=== PATIENT | female | born 2005 | race Caucasian/White ===

== ENCOUNTER 2023-12-11 16:26 | Inpatient (IN) ==
[2023-12-11] MEDS ORDERED: diphenhydrAMINE 50 MG/ML VIAL IV STA ×4 (16:31→20:22)
[2023-12-11] MEDS ORDERED: FAMOTIDINE 20MG IV PUSH 20 MG/5 ML SYR IV STA (16:31)
[2023-12-11] MEDS ORDERED: methylPREDNISolone 125 MG/2 ML VIAL IV STA (16:31)
[2023-12-11] MEDS ORDERED: diphenhydrAMINE 50 MG/ML VIAL ONE (16:32)
[2023-12-11] MEDS ORDERED: methylPREDNISolone 125 MG/2 ML VIAL ONE (16:32)
[2023-12-11] MEDS ORDERED: FAMOTIDINE 20MG/5ML IV PUSH IV ONE (16:32)
[2023-12-11] MEDS ORDERED: EPINEPHrine ADULT AUTO-INJECT 0.3 MG SYR IM ONE (16:43)
[2023-12-11 17:02] LABS: Basophils # (auto) 0.03 K/uL (0.00-0.20); Basophils % (auto) 0.4 %; Eosinophils # (auto) 0.12 K/uL (0.00-0.50); Eosinophils % (auto) 1.6 %; Hematocrit (blood only) 43.3 % (37.0-47.0); Hemoglobin 14.2 g/dl (12.0-16.0); Immature Granulocytes # (auto) 0.02 K/uL (0.01-0.20); Immature Granulocytes % (auto) 0.3 %; Lymphocytes # (auto) 2.22 K/uL (1.20-3.40); Lymphocytes % (auto) 29.9 %; Mean Corpuscular Hemoglobin 27.5 pg (25.0-34.0); Mean Corpuscular Hgb Conc 32.8 g/dL (32.0-36.0); Mean Corpuscular Volume 83.9 fL (80.0-100.0); Mean Platelet Volume 9.8 fL (9.4-12.4); Monocytes # (auto) 1.08 K/uL (0.11-0.59); Monocytes % (auto) 14.6 %; Neutrophils # (auto) 3.95 K/uL (1.40-6.50); Neutrophils % (auto) 53.2 %; Platelet Count 316 K/uL (130-400); RDW Coefficient of Variation 12.8 % (11.5-14.5); RDW Standard Deviation 39.5 fL (36.4-46.3); Red Blood Count 5.16 M/uL (4.20-5.40); White Blood Count 7.42 K/ul (4.8-10.8)
[2023-12-11] MEDS: SODIUM CHLORIDE 0.9% 1,000 ML IV SCH ×3 (17:03→17:45)
[2023-12-11 17:13] LABS: Pregnancy Test, Serum Negative (Negative)
--- NOTE | 2023-12-11 17:16 | Emergency Department Note ---
Impression & Plan Mast cell activation syndrome, Anxiety, COVID-19 ED Provider Note NAME: LEANDER DORANTES AGE: 18 SEX: F ARRIVES VIA: Walk-In INFORMANT: Patient ED PROVIDER(S): Win Barr MD CHIEF COMPLAINT: Mast cell activation syndrome. Covid19. 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 The patient reports she had been having flares of her urticaria and had contacted her safe and vault installer and were proceeding with oral steroids but due to worsening symptoms today presented to emergency department. The patient reported that she felt her tongue was swelling and so administered her own EpiPen in the waiting room and upon evaluation in triage was brought immediately to the critical care bay. On presentation, the patient's blood pressure was elevated at 180/140s in the setting of her restlessness, heart rate was in the 90s-100s and respiratory rate initially in the upper 20s after her self administration of her EpiPen but improving without intervention as IV was placed. O2 saturation remained 99% on room air but was placed on high flow oxygen out of caution. She was transitioned to room air. On examination the patient appeared to have protrusion of her tongue suggesting tongue swelling though there was no overt additional oral pharyngeal edema. She would exhibit inspiratory stridor sounds but none on expiration and her voice was unchanged from baseline without muffling or changes in tone. Her lungs were clear bilaterally. The patient's symptoms gradually improved and tongue no longer was protruding and she was able to open her mouth without difficulty. Given the patient's history of Mast cell activation syndrome IV fluid hydration with 2L NSS was administered, 125 mg of IV Solu-Medrol, 50 mg of diphenhydramine after initial 25 were ordered but patient reports 50 mg is what she needs. 20 mg of IV Pepcid also administered. Patient mother did connect with the patient on FaceTime with her phone in the room and I did review the patient's plan including discussion with her safe and vault installer Dr. Ramirez. Patient's mother was traveling from their home in [place] to be here at the hospital. I did review the patient's case with the patient's safe and vault installer Dr. Ramirez. Appreciate consultation/recommendations. Agrees with treatment with steroids fluids and antihistamines as initiated. Further, it appears that there has been long suspected component of mood related effects to her severe episodes where she may feel a component of her mast cell and severity of symptoms escalates dramatically due to underlying anxiety and panic. However, on prior severe episodes, the patient's tryptase did not show any significant elevation which suggests a component of mood based symptoms contributing to the severity her presentations. EKG without overt acute ischemia. Intervals unremarkable. WBC, H/H and platelets within normal limits. Chemistry without metabolic acidosis. Potassium 3.4 and electrolytes otherwise unremarkable. LFTs are unremarkable. hCG was negative. Tryptase was performed and is pending. The patient did show continued improvement though intermittently would inform her RN that she was feeling her tongue swelling again and again would stick her tongue out. With reassurance that this did seem to help improve her symptoms. She was also given 0.5 mg of IV Ativan which also helped. Symptoms did continue intermittently but again with unremarkable change in her vital signs and no clear evidence of angioedema of her tongue/lips/oropharynx. The patient was insistent that she needed treatment with IV Benadryl on a scheduled basis and prefers to her "protocol" which includes every 4 hour 50 mg doses and every 2 hour 25 mg doses. With the patient's mother on the phone again we agreed that we will provide these medications if they are in line with her preestablished protocol but they were aware of the importance of understanding the component of mood contributing to her symptoms in order to appropriately provide treatment and avoid harm which could occur from not acknowledging this aspect of her symptoms. The patient's mother did express understanding of this and felt reassured given her normal vital signs. They agree with plan for referral to hospital service for further observation. Dr. Ramirez will be available for inpatient team consultation as needed. Case was discussed with Dr. Melissa, [facility] hospitalist, who will evaluate the patient for admission. Triage Nursing notes reviewed and agree them. Prior/external medical records reviewed Vital Signs: reviewed Differential diagnosis: Allergic reaction, anaphylaxis, urticaria, Balbuena-Wesly syndrome, toxic epidermal necrolysis, erythema multiforme, contact dermatitis, cellulitis, as well as other pathologies. ER treatment provided: See below. Diagnostics interpreted by me: ECG: Normal sinus rhythm 88 bpm, no ectopy, no overt ST ovation or depression, QTc 450, QRS 88 Cardiac Monitoring: An order for continuous cardiac monitoring was placed and demonstrated Normal sinus rhythm 88 bpm, no ectopy. Laboratory studies: See below Imaging studies: See below Consultation(s): Dr. Ramirez, [place] allergy-immunology Dr. 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 The patient reports she had been having flares of her urticaria and had contacted her safe and vault installer and were proceeding with oral steroids but due to worsening symptoms today presented to emergency department. The patient reported that she felt her tongue was swelling and so administered her own EpiPen in the waiting room and upon evaluation in triage was brought immediately to the critical care bay. ROS: See above HPI for pertinent positives & negatives. A total of 10 systems reviewed and were otherwise negative. VITALS:See Below PHYSICAL EXAMINATION: GENERAL: Awake, alert, anxious appearing. HENT: Normocephalic, atraumatic. Appeared to have protrusion of her tongue suggesting tongue swelling though there was no overt additional oral pharyngeal edema. She would exhibit inspiratory stridor sounds but none on expiration and her voice was unchanged from baseline without muffling or changes in tone. Her lungs were clear bilaterally. The patient's symptoms gradually improved and tongue no longer was protruding and she was able to open her mouth without difficulty. EYES: Normal conjunctiva. Sclera non-icteric. NECK: Supple. No nuchal rigidity. FROM. No JVD. RESPIRATORY: Clear to auscultation. CARDIAC: Regular rate, normal rhythm. Extremities warm and well perfused. Pulses equal. ABDOMEN: Soft, non-distended. No tenderness to palpation. No rebound or guarding. No masses. RECTAL: Deferred. MUSCULOSKELETAL: Chest examination reveals no tenderness. The back is symmetrical on inspection without obvious abnormality. There is no CVA tenderness to palpation. No joint edema. LOWER EXTREMITIES: Calves are equal size bilaterally and non-tender. No edema. No discoloration. NEURO: Normal sensorium. No sensory or motor deficits noted. SKIN: No rash or jaundice noted. Win Barr MD Past Med/Surg History Medical History Gastroparesis Migraine Anxiety 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 Social History Smoking Status: Never smoker Tobacco Type: Cigarettes Second Hand Exposure: No; Do You Dip or Chew Tobacco: No; Tobacco Cessation Education Requested by Patient: No Hx Alcohol Use: No Hx Substance Use: No Preferred Language: Emirati Communication Ability: Effective Memory Care Program Director Required: No Beliefs That Will Affect Care: None Current Living Situation: Other Current Living Situation Comment: roommates at college Other Information That Helps Us Care for You: No Feels Safe at Home: Yes Safety Concerns: Feels Safe At This Time Assistive Devices: None Allergies Allergies Allergy/AdvReac Type Severity Reaction Status Date / Time docusate [From Senna-S] Allergy Severe Hives, Verified 12/11/23 22:01 stridor plecanatide [From Trulance] Allergy Severe Anaphylaxis Verified 12/11/23 17:11 polyethylene glycol Allergy Severe Anaphylaxis Verified 12/11/23 17:11 [From Golytely] potassium chloride Allergy Severe Anaphylaxis Verified 12/11/23 17:11 [From Golytely] senna [From Senna-S] Allergy Severe Hives, Verified 12/11/23 22:01 stridor sodium [From Golytely] Allergy Severe Anaphylaxis Verified 12/11/23 17:11 sodium bicarbonate Allergy Severe Anaphylaxis Verified 12/11/23 17:11 [From Golytely] sodium chloride Allergy Severe Anaphylaxis Verified 12/11/23 17:11 [From Golytely] sodium sulfate Allergy Severe Anaphylaxis Verified 12/11/23 17:11 [From Golytely] adhesive Allergy Intermediate Hives Verified 12/11/23 22:01 latex Allergy Intermediate Rash Verified 12/11/23 17:11 oxycodone Allergy Intermediate hives/rash Verified 12/11/23 17:11 Penicillins Allergy Intermediate vomiting/ra Verified 12/11/23 17:11 sh polyethylene glycol 3350 Allergy Intermediate hives/itchi Verified 12/11/23 17:11 [From Miralax] ng Sulfa (Sulfonamide Allergy Intermediate Rash Verified 12/11/23 17:11 Antibiotics) sulfamethoxazole Allergy Intermediate Rash Verified 12/11/23 17:11 [From Sulfamethoxazole-Trimethoprim] tetrahydrozoline Allergy Intermediate Rash Verified 12/11/23 17:11 trimethoprim Allergy Intermediate Rash Verified 12/11/23 17:11 [From Sulfamethoxazole-Trimethoprim] zinc Allergy Intermediate Itching Verified 12/11/23 22:03 nickel Allergy Mild Rash Verified 12/11/23 17:11 aspirin AdvReac Severe gi bleed Verified 12/11/23 17:11 gluten AdvReac Severe celiac Verified 12/11/23 17:11 disease ibuprofen AdvReac Severe gi bleed Verified 12/11/23 17:11 NSAIDS (Non-Steroidal AdvReac Severe gi bleed Verified 12/11/23 17:11 Anti-Inflamma metoclopramide [From Reglan] AdvReac Intermediate muscle Verified 12/11/23 17:11 spasm clarithromycin [From Biaxin] AdvReac Unknown unsure Verified 12/11/23 17:11 ferric carboxymaltose AdvReac Unknown unsure Verified 12/11/23 17:11 Home Meds Home Medications Medication Instructions Recorded Confirmed fluoxetine 20 mg capsule 20 mg PO DAILY 12/19/22 12/11/23 lorazepam 0.5 mg tablet 0.5 mg PO DAILY PRN Anxiety 12/19/22 12/11/23 ondansetron HCl 8 mg tablet 8 mg PO DAILY PRN Nausea 12/19/22 12/11/23 rimegepant 75 mg disintegrating 75 mg PO Q OTHER DAY 02/26/23 12/11/23 [facility] hydroxyzine HCl 25 mg tablet 50 mg PO QID PRN hives 08/17/23 12/11/23 Previous Rx's Medication Instructions Recorded cetirizine 10 mg tablet 20 mg (2 x 10 mg) PO BID #60 tabs 12/19/22 epinephrine 0.3 mg/0.3 mL 0.3 mg (0.3 mL) IM Q4H PRN 08/20/23 injection, auto-injector Anaphylaxis #2 ea famotidine 40 mg tablet 40 mg PO BID #180 tabs 08/20/23 fluticasone propionate 50 2 spray intranasal DAILY #1 inh 08/20/23 mcg/actuation nasal spray,suspension (Flonase Allergy Relief) levalbuterol tartrate 45 1 puff inhalation Q6H PRN Wheezing 08/20/23 mcg/actuation aerosol inhaler #1 inhaler omalizumab 150 mg/mL subcutaneous 300 mg (2 mL) subcut .COMPLEX #4 mL 10/16/23 syringe (Xolair) Results & Data (ED) Vital Signs Vital Signs - 24 hr 12/11/23 16:26 12/11/23 16:28 12/11/23 16:41 Temperature 36.8 C Temperature Source Temporal Artery Scan Pulse Rate 100 H 93 H Pulse Rate [Apical] Pulse Rhythm Pulse Rhythm [Apical] Pulse Strength [Apical] Respiratory Rate 28 H Respiratory Effort / Characteristics Respiratory Depth Respiratory Pattern Blood Pressure 182/143 H Blood Pressure [Right Arm] Blood Pressure Mean 156 Blood Pressure Mean [Right Arm] Blood Pressure Position [Right Arm] Pulse Oximetry 99 100 Oxygen Delivery Method Room Air Non-rebreather Oxygen Flow Rate 15 Sepsis Recent Fever Within 48 Hours No Sepsis New/Unexplained Change in Mental Status No Sepsis Action Taken by Nursing No Action Required 12/11/23 17:05 12/11/23 17:06 Temperature Temperature Source Pulse Rate 87 Pulse Rate [Apical] 86 Pulse Rhythm Regular Pulse Rhythm [Apical] Regular Pulse Strength [Apical] Normal Respiratory Rate 17 17 Respiratory Effort / Characteristics Non-Labored Spontaneous Respiratory Depth Normal Respiratory Pattern Regular Blood Pressure Blood Pressure [Right Arm] 155/97 H Blood Pressure Mean Blood Pressure Mean [Right Arm] 116 Blood Pressure Position [Right Arm] Semi-fowlers Pulse Oximetry 96 99 Oxygen Delivery Method Room Air Room Air Oxygen Flow Rate Sepsis Recent Fever Within 48 Hours Sepsis New/Unexplained Change in Mental Status Sepsis Action Taken by Nursing Laboratory Data Attestation: I reviewed the patient's lab results. 12/11/23 16:39 12/11/23 16:39 Lab Results 12/11/23 12/11/23 Range/Units 16:39 16:59 WBC 7.42 (4.8-10.8) K/ul RBC 5.16 (4.20-5.40) M/uL Hgb 14.2 (12.0-16.0) g/dl Hct 43.3 (37.0-47.0) % MCV 83.9 (80.0-100.0) fL MCH 27.5 (25.0-34.0) pg MCHC 32.8 (32.0-36.0) g/dL RDW Std Deviation 39.5 (36.4-46.3) fL RDW Coeff of Layla 12.8 (11.5-14.5) % Plt Count 316 (130-400) K/uL MPV 9.8 (9.4-12.4) fL Immature Gran % (Auto) 0.3 % Neut % (Auto) 53.2 % Lymph % (Auto) 29.9 % [place] % (Auto) 14.6 % Eos % (Auto) 1.6 % Baso % (Auto) 0.4 % Neut # (Auto) 3.95 (1.40-6.50) K/uL Lymph # (Auto) 2.22 (1.20-3.40) K/uL [place] # (Auto) 1.08 H (0.11-0.59) K/uL Eos # (Auto) 0.12 (0.00-0.50) K/uL Baso # (Auto) 0.03 (0.00-0.20) K/uL Immature Gran # (Auto) 0.02 (0.01-0.20) K/uL Sodium 141 (136-145) mmol/L Potassium 3.4 L (3.5-5.1) mmol/L Chloride 103 (98-107) mmol/L Carbon Dioxide 26 (21-32) mmol/L Anion Gap 12 H (3-11) BUN 10 (6-23) mg/dl Creatinine 0.83 (0.6-1.2) mg/dl Est Cr Clr Drug Dosing 117.6 ml/min Est GFR ( Amer) 117.7 ml/min Est GFR (Non-Af Amer) 101.5 ml/min BUN/Creatinine Ratio 12.0 (10-20) Glucose 98 (70-99(Fasting)) mg/dl Calcium 9.7 (8.6-10.3) mg/dl Total Bilirubin 0.4 (0.2-1.0) mg/dl AST 16 (13-39) U/L ALT 12 (7-52) U/L Alkaline Phosphatase 63 (34-104) U/L Total Protein 8.0 (6.0-8.3) gm/dl Albumin 4.9 (3.4-5.0) gm/dl Globulin 3.1 (2.5-4.0) gm/dl Albumin/Globulin Ratio 1.6 (0.9-2) HCG, Qual Negative (Negative) SARS-CoV-2, RNA, NAAT POSITIVE A* (NEGATIVE) Administered Medications Diphenhydramine HCl (Diphenhydramine 50 Mg/Ml Vial) 25 mg IV Q2H PRN PRN Reason: Anaphylaxis Stop: 01/10/24 22:29 Last Admin: 12/11/23 22:36 Dose: 25 mg Documented By: VICKI Acetaminophen (Ofirmev) 1,000 mg in 100 mls @ 400 mls/hr IV Q8H PRN PRN Reason: Pain Stop: 12/15/23 01:59 Last Admin: 12/11/23 23:34 Dose: 400 mls/hr Documented By: MELLISA Discontinued Medications Acetaminophen (Acetaminophen 1000 Mg/100 Ml Iv) Confirm Administered Dose 1,000 mg IV .STK-MED ONE Stop: 12/11/23 23:32 Last Admin: 12/11/23 23:39 Dose: Not Given Documented By: MELLISA Diphenhydramine HCl (Diphenhydramine 50 Mg/Ml Vial) Confirm Administered Dose 50 mg .ROUTE .STK-MED ONE Stop: 12/11/23 16:33 Last Admin: 12/11/23 16:49 Dose: Not Given Documented By: Diphenhydramine HCl (Diphenhydramine 50 Mg/Ml Vial) 25 mg IV NOW STA Stop: 12/11/23 16:32 Last Admin: 12/11/23 16:48 Dose: 25 mg Documented By: Diphenhydramine HCl (Diphenhydramine 50 Mg/Ml Vial) 25 mg IV NOW STA Stop: 12/11/23 16:39 Last Admin: 12/11/23 16:49 Dose: 25 mg Documented By: Diphenhydramine HCl (Diphenhydramine 50 Mg/Ml Vial) 25 mg IV NOW STA Stop: 12/11/23 19:08 Last Admin: 12/11/23 19:20 Dose: 25 mg Documented By: Diphenhydramine HCl (Diphenhydramine 50 Mg/Ml Vial) 50 mg IV NOW STA Stop: 12/11/23 20:23 Last Admin: 12/11/23 20:35 Dose: 50 mg Documented By: AB Epinephrine HCl (Epinephrine Adult Auto-Inject 0.3 Mg Syr) Confirm Administered Dose 0.3 mg IM .STK-MED ONE Stop: 12/11/23 16:44 Last Admin: 12/11/23 16:50 Dose: Not Given Documented By: AB Famotidine (Famotidine 20mg/5ml Iv Push) Confirm Administered Dose 20 mg IV .STK-MED ONE Stop: 12/11/23 16:33 Last Admin: 12/11/23 16:50 Dose: Not Given Documented By: AB Famotidine (Pepcid 20mg Iv Push) 20 mg in 5 mls @ 2.5 mls/min IV NOW STA Stop: 12/11/23 16:32 Last Admin: 12/11/23 16:48 Dose: 2.5 mls/min Documented By: AB Sodium Chloride (Nss) 1,000 mls @ 999 mls/hr IV .Q1H1M NAVIN Stop: 12/11/23 18:45 Last Infusion: 12/11/23 18:47 Dose: Infused Documented By: Admin: 12/11/23 17:45 Dose: 999 mls/hr Documented By: Infusion: 12/11/23 17:45 Dose: Infused Documented By: Admin: 12/11/23 17:03 Dose: 999 mls/hr Documented By: FRANKLIN Acetaminophen (Ofirmev) 1,000 mg in 100 mls @ 400 mls/hr IV NOW STA Stop: 12/11/23 19:23 Last Infusion: 12/11/23 19:35 Dose: Infused Documented By: Admin: 12/11/23 19:20 Dose: 400 mls/hr Documented By: AB Lorazepam 0.5 mg/ Syringe 0.5 mls @ 2 mls/min IV NOW STA Stop: 12/11/23 20:24 Last Admin: 12/11/23 20:35 Dose: 2 mls/min Documented By: Lorazepam (Lorazepam 1 Mg/1 Ml Syr Ed Inj Use) 0.5 mg IV ONE STA Stop: 12/11/23 17:28 Last Admin: 12/11/23 17:37 Dose: 0.5 mg Documented By: FRANKLIN Lorazepam (Lorazepam 1 Mg/1 Ml Syr Ed Inj Use) Confirm Administered Dose 1 mg .ROUTE .STK-MED ONE Stop: 12/11/23 20:31 Last Admin: 12/11/23 20:35 Dose: Not Given Documented By: Methylprednisolone (Methylprednisolone 125 Mg/2 Ml Vial) Confirm Administered Dose 125 mg .ROUTE .STK-MED ONE Stop: 12/11/23 16:33 Last Admin: 12/11/23 16:50 Dose: Not Given Documented By: Methylprednisolone (Methylprednisolone 125 Mg/2 Ml Vial) 125 mg IV NOW STA Stop: 12/11/23 16:32 Last Admin: 12/11/23 16:48 Dose: 125 mg Documented By: Discharge Plan Visit Data Chief Complaint: Allergic Reaction Stated Complaint: ALLERGIC REACTION, COVID ED Provider: Win Barr Discharge Problem: Mast cell activation syndrome, Anxiety, COVID-19 Patient Disposition: Admitted As Inpatient Discharge Instructions Interventions: ED Discharge Assessment Last Done: 12/11/23 21:51
[2023-12-11] MEDS ORDERED: LORazepam 1 MG/1 ML SYR ED Inj Use IV STA (17:27)
[2023-12-11] MEDS ORDERED: ACETAMINOPHEN 1,000 MG/100 ML VIAL IV STA (19:09)
[2023-12-11 19:15] LABS: Albumin Level 4.9 gm/dl (3.4-5.0); Bilirubin,Total 0.4 mg/dl (0.2-1.0); Calcium 9.7 mg/dl (8.6-10.3); Potassium 3.4 mmol/L (3.5-5.1)
[2023-12-11 19:21] LABS: Albumin Globulin Ratio 1.6 (0.9-2); Creatinine Clr Calc Pharmacy 117.6 ml/min; Est GFR (African American) 117.7 ml/min; Est GFR (Non-African American) 101.5 ml/min; Globulin 3.1 gm/dl (2.5-4.0)
--- NOTE | 2023-12-11 20:20 | History & Physical Report ---
Date of Service December 11, 2023 Assessment & Plan (1) Allergic reaction: Plan: 17 yo female with PMHx of chronic idiopathic urticaria, mast cell activation syndrome, migraines, anxiety, and gastroparesis presents with allergic reaction. #Allergic reaction, ?Anaphylaxis #Chronic idiopathic urticaria #Mast cell activation syndrome -presented with an episode of hives, throat/tongue swelling, generalized itchiness following consumption of avocado. She did immediately use epi-pen on the way to ED. In ED was given, benadryl, ativan, and solumedrol with improvement. A few hours later did develop repeat episode without need for epinephrine. Similar presentation during previous hospitalization and will treat similarly. -benadryl q4h scheduled + benadryl q2h prn -solumedrol q8h scheduled - defer to allergy for need of steroids -epinephrine prn -she is chronically on Xolair. Will hold home cetirizine while on benadryl. -Allergy/immunology consulted #COVID -diagnosed 12/10/23 with PCP - solumedrol as above - otherwise supportive care #Hypokalemia -K 3.4 on admission. Will hold replenishing given potassium chloride on allergy list. Patient agrees. Recheck am. #Gastroparesis -cont. famotidine #Anxiety -cont. fluoxetine -ativan prn #Migraines -cont. Nurtec DVT ppx: ambulation FEN/GI: strict NPO Code Status: full Dispo: med tele (2) Mast cell activation syndrome: (3) Anxiety: (4) Chronic idiopathic urticaria: (5) Migraine: (6) Gastroparesis: History of Present Illness Chief Complaint: anaphylaxis Primary Care Provider: Araseli Pacheco MD 17 yo female with PMHx of chronic idiopathic urticaria, mast cell activation syndrome, migraines, anxiety, and gastroparesis presents with allergic reaction. Earlier today at 2 PM patient ate avocado and subsequently experienced generalized itching, throat/tongue swelling, difficulty breathing, and diarrhea. Due to possible anaphylaxis patient did have a dose of epinephrine on the way to the ED. Denies fever, chills, fatigue, chest pain, abdominal pain, nausea, vomiting, constipation, dysuria, extremity numbness/tingling/weakness. In the ED she did start feeling better after receiving steroids, Benadryl, Ativan, and IVF. Of note she was diagnosed with COVID yesterday. She has a longstanding history of chronic idiopathic urticaria and mast cell activation for which she follows with allergy for. She has numerous amounts of allergies and this presentation has occurred in the past as recently as fall 2022. Allergies Allergy/AdvReac Type Severity Reaction Status Date / Time docusate [From Senna-S] Allergy Severe Hives, Verified 12/11/23 22:01 stridor plecanatide [From Trulance] Allergy Severe Anaphylaxis Verified 12/11/23 17:11 polyethylene glycol Allergy Severe Anaphylaxis Verified 12/11/23 17:11 [From Golytely] potassium chloride Allergy Severe Anaphylaxis Verified 12/11/23 17:11 [From Golytely] senna [From Senna-S] Allergy Severe Hives, Verified 12/11/23 22:01 stridor sodium [From Golytely] Allergy Severe Anaphylaxis Verified 12/11/23 17:11 sodium bicarbonate Allergy Severe Anaphylaxis Verified 12/11/23 17:11 [From Golytely] sodium chloride Allergy Severe Anaphylaxis Verified 12/11/23 17:11 [From Golytely] sodium sulfate Allergy Severe Anaphylaxis Verified 12/11/23 17:11 [From Golytely] adhesive Allergy Intermediate Hives Verified 12/11/23 22:01 latex Allergy Intermediate Rash Verified 12/11/23 17:11 oxycodone Allergy Intermediate hives/rash Verified 12/11/23 17:11 Penicillins Allergy Intermediate vomiting/ra Verified 12/11/23 17:11 sh polyethylene glycol 3350 Allergy Intermediate hives/itchi Verified 12/11/23 17:11 [From Miralax] ng Sulfa (Sulfonamide Allergy Intermediate Rash Verified 12/11/23 17:11 Antibiotics) sulfamethoxazole Allergy Intermediate Rash Verified 12/11/23 17:11 [From Sulfamethoxazole-Trimethoprim] tetrahydrozoline Allergy Intermediate Rash Verified 12/11/23 17:11 trimethoprim Allergy Intermediate Rash Verified 12/11/23 17:11 [From Sulfamethoxazole-Trimethoprim] zinc Allergy Intermediate Itching Verified 12/11/23 22:03 nickel Allergy Mild Rash Verified 12/11/23 17:11 aspirin AdvReac Severe gi bleed Verified 12/11/23 17:11 gluten AdvReac Severe celiac Verified 12/11/23 17:11 disease ibuprofen AdvReac Severe gi bleed Verified 12/11/23 17:11 NSAIDS (Non-Steroidal AdvReac Severe gi bleed Verified 12/11/23 17:11 Anti-Inflamma metoclopramide [From Reglan] AdvReac Intermediate muscle Verified 12/11/23 17:11 spasm clarithromycin [From Biaxin] AdvReac Unknown unsure Verified 12/11/23 17:11 ferric carboxymaltose AdvReac Unknown unsure Verified 12/11/23 17:11 Home Medications Medication Instructions Recorded Confirmed Type cetirizine 10 mg tablet 20 mg (2 x 10 mg) PO BID #60 tabs 12/19/22 12/11/23 Rx fluoxetine 20 mg capsule 20 mg PO DAILY 12/19/22 12/11/23 History lorazepam 0.5 mg tablet 0.5 mg PO DAILY PRN Anxiety 12/19/22 12/11/23 History ondansetron HCl 8 mg tablet 8 mg PO DAILY PRN Nausea 12/19/22 12/11/23 History rimegepant 75 mg disintegrating 75 mg PO Q OTHER DAY 02/26/23 12/11/23 History tablet (Nurtec ODT) hydroxyzine HCl 25 mg tablet 50 mg PO QID PRN hives 08/17/23 12/11/23 History epinephrine 0.3 mg/0.3 mL 0.3 mg (0.3 mL) IM Q4H PRN 08/20/23 12/11/23 Rx injection, auto-injector Anaphylaxis #2 ea famotidine 40 mg tablet 40 mg PO BID #180 tabs 08/20/23 12/11/23 Rx fluticasone propionate 50 2 spray intranasal DAILY #1 inh 08/20/23 12/11/23 Rx mcg/actuation nasal spray,suspension (Flonase Allergy Relief) levalbuterol tartrate 45 1 puff inhalation Q6H PRN Wheezing 08/20/23 12/11/23 Rx mcg/actuation aerosol inhaler #1 inhaler omalizumab 150 mg/mL subcutaneous 300 mg (2 mL) subcut .COMPLEX #4 mL 10/16/23 12/11/23 Rx syringe (Xolair) epinephrine 0.3 mg/0.3 mL 0.3 mg (0.3 mL) IM Q4H PRN 01/24/24 Rx injection, auto-injector (EpiPen) anaphylaxis #2 ea prednisone 10 mg tablet See Rx Instructions PO .COMPLEX 12/12/23 Rx #30 tabs Past Med/Surg History Medical History Gastroparesis Migraine Anxiety 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 Social History Smoking Status: Never smoker Tobacco Type: Cigarettes Second Hand Exposure: No; Do You Dip or Chew Tobacco: No; Hx Alcohol Use: No Hx Substance Use: No Preferred Language: Wolof Communication Ability: Effective Core Maker Required: No Beliefs That Will Affect Care: None Current Living Situation: Other Current Living Situation Comment: roommates at college Feels Safe at Home: Yes Assistive Devices: None Review of Systems Review of Systems: All systems reviewed & are unremarkable except as noted in HPI & below Physical Exam Physical Exam: Constitutional: in no acute distress, pleasant and normal affect, intact memory. AOx3. Vitals as above. HEENT: No scleral injection or discharge.Moist mucous membranes.Clear oropharynx/airway without significant tongue swelling. Neck: Supple, nontender, without lymphadenopathy. Trachea midline. Lungs: Clear to auscultation bilaterally with good effort. No wheezes/rales/rhonchi. Cardiac: Tachycardic. Normal rhythm. No murmurs. No lower extremity edema. 2+ distal peripheral pulses. Abdomen: Bowel sounds present. Soft, nontender, and nondistended.No guarding. No hepatosplenomegaly. MSK: No cyanosis or clubbing. Extremities motor strength 5/5. Skin: No rashes, warm, dry. Neurologic: no focal deficits Results & Data Results & Data Vital Signs (Past 12 Hours) Vital Signs Temp Pulse Pulse Resp BP BP Pulse Ox 12/11/23 17:06 86 17 155/97 H 99 12/11/23 17:05 87 17 96 12/11/23 16:41 93 H 12/11/23 16:28 100 12/11/23 16:26 36.8 C 100 H 28 H 182/143 H 99 O2 Del Method O2 Flow Rate 12/11/23 17:06 Room Air 12/11/23 17:05 Room Air 12/11/23 16:41 12/11/23 16:28 Non-rebreather 15 01/23/24 16:26 Room Air Laboratory Results Laboratory Results WBC 7.42 K/ul (4.8-10.8) 12/11/23 16:39 RBC 5.16 M/uL (4.20-5.40) 12/11/23 16:39 Hgb 14.2 g/dl (12.0-16.0) 12/11/23 16:39 Hct 43.3 % (37.0-47.0) 12/11/23 16:39 MCV 83.9 fL (80.0-100.0) 12/11/23 16:39 MCH 27.5 pg (25.0-34.0) 12/11/23 16:39 MCHC 32.8 g/dL (32.0-36.0) 12/11/23 16:39 RDW Std Deviation 39.5 fL (36.4-46.3) 12/11/23 16:39 RDW Coeff of Layla 12.8 % (11.5-14.5) 12/11/23 16:39 Plt Count 316 K/uL (130-400) 12/11/23 16:39 MPV 9.8 fL (9.4-12.4) 12/11/23 16:39 Immature Gran % (Auto) 0.3 % 12/11/23 16:39 Neut % (Auto) 53.2 % 12/11/23 16:39 Lymph % (Auto) 29.9 % 12/11/23 16:39 Graham % (Auto) 14.6 % 12/11/23 16:39 Eos % (Auto) 1.6 % 12/11/23 16:39 Baso % (Auto) 0.4 % 12/11/23 16:39 Neut # (Auto) 3.95 K/uL (1.40-6.50) 12/11/23 16:39 Lymph # (Auto) 2.22 K/uL (1.20-3.40) 12/11/23 16:39 Graham # (Auto) 1.08 K/uL (0.11-0.59) H 12/11/23 16:39 Eos # (Auto) 0.12 K/uL (0.00-0.50) 12/11/23 16:39 Baso # (Auto) 0.03 K/uL (0.00-0.20) 12/11/23 16:39 Immature Gran # (Auto) 0.02 K/uL (0.01-0.20) 12/11/23 16:39 Sodium 141 mmol/L (136-145) 12/11/23 16:39 Potassium 3.4 mmol/L (3.5-5.1) L 12/11/23 16:39 Chloride 103 mmol/L (98-107) 12/11/23 16:39 Carbon Dioxide 26 mmol/L (21-32) 12/11/23 16:39 Anion Gap 12 (3-11) H 12/11/23 16:39 BUN 10 mg/dl (6-23) 12/11/23 16:39 Creatinine 0.83 mg/dl (0.6-1.2) 12/11/23 16:39 Est Cr Clr Drug Dosing 117.6 ml/min 12/11/23 16:39 Est GFR ( Amer) 117.7 ml/min 12/11/23 16:39 Est GFR (Non-Af Amer) 101.5 ml/min 12/11/23 16:39 BUN/Creatinine Ratio 12.0 (10-20) 12/11/23 16:39 Glucose 98 mg/dl (70-99(Fasting)) 12/11/23 16:39 Calcium 9.7 mg/dl (8.6-10.3) 12/11/23 16:39 Total Bilirubin 0.4 mg/dl (0.2-1.0) 12/11/23 16:39 AST 16 U/L (13-39) 12/11/23 16:39 ALT 12 U/L (7-52) 12/11/23 16:39 Alkaline Phosphatase 63 U/L (34-104) 12/11/23 16:39 Total Protein 8.0 gm/dl (6.0-8.3) 12/11/23 16:39 Albumin 4.9 gm/dl (3.4-5.0) 12/11/23 16:39 Globulin 3.1 gm/dl (2.5-4.0) 12/11/23 16:39 Albumin/Globulin Ratio 1.6 (0.9-2) 12/11/23 16:39 HCG, Qual Negative (Negative) 12/11/23 16:39 SARS-CoV-2, RNA, NAAT POSITIVE (NEGATIVE) A* 12/11/23 16:59 Supervising Physician Co-Signing Physician Notes Attending addendum: I have physically seen this patient, have supervised the medical residents activities, and agree with the H&P unless as otherwise noted. Assessment and Plan: Allergic reaction/chronic idiopathic urticaria/mast cell activation syndrome- Presenting symptoms to the ED where hives, throat and tongue swelling, generalized itching after eating avocado Patient gave herself an EpiPen, and then presented to the ED From the ED she received Solu-Medrol 125 mg IV, famotidine 20 mg IV, and Benadryl 50 mg IV Patient will be admitted on Benadryl 50 mg IV every 4 hours, and every 2 hours as needed Solu-Medrol 40 mg IV every 8 hours Epinephrine as needed Continue Xolair Consult allergy/immunology Admitting to monitored bed COVID-19 infection- Diagnosed 12/10/2023 by PCP No antiviral treatment indicated Anxiety- Continue fluoxetine Lorazepam 0.5 mg IV/p.o. as noted as needed Resident Activity Tracking Resident Involvement: Resident Care Provided Care Provided: Adult Hospital Medicine
[2023-12-11] MEDS ORDERED: LORazepam 0.5 MG in SYRINGE 0.25 ML IV STA (20:23)
[2023-12-11] MEDS ORDERED: LORazepam 1 MG/1 ML SYR ED Inj Use ONE (20:30)
[2023-12-11] MEDS ORDERED: EPINEPHrine INJ 1 MG/ML AMP IM PRN (21:51)
[2023-12-11] MEDS ORDERED: ONDANSETRON INJ 2 MG/ML 2 ML VIAL IV PRN (21:51)
[2023-12-11] MEDS ORDERED: LEVALBUTEROL TARTRATE 15 GM HFA.AER.AD INH PRN (21:51)
[2023-12-11] MEDS ORDERED: diphenhydrAMINE 50 MG/ML VIAL IV PRN (22:30)
[2023-12-11] MEDS ORDERED: LORazepam 0.5 MG in SYRINGE 0.25 ML IV PRN (23:30)
[2023-12-11] MEDS ORDERED: ACETAMINOPHEN 1000 MG/100 ML IV IV ONE (23:31)
[2023-12-12] MEDS ORDERED: COUGH DROP (SUGAR FREE) LOZ 24 LOZ/1 BOX BUCCAL PRN (00:22)
[2023-12-12] MEDS: diphenhydrAMINE 50 MG/ML VIAL IV SCH ×3 (01:07→09:12)
[2023-12-12] MEDS ORDERED: ACETAMINOPHEN 1,000 MG/100 ML VIAL IV PRN (02:00)
[2023-12-12] MEDS: methylPREDNISolone 40 MG in SYRINGE 0 ML IV SCH ×2 (02:06→10:10)
[2023-12-12 07:57] LABS: Basophils # (auto) 0.01 K/uL (0.00-0.20); Basophils % (auto) 0.1 %; Hematocrit (blood only) 42.2 % (37.0-47.0); Hemoglobin 14.1 g/dl (12.0-16.0); Immature Granulocytes # (auto) 0.04 K/uL (0.01-0.20); Immature Granulocytes % (auto) 0.3 %; Lymphocytes # (auto) 1.13 K/uL (1.20-3.40); Lymphocytes % (auto) 9.5 %; Mean Corpuscular Hemoglobin 27.6 pg (25.0-34.0); Mean Corpuscular Hgb Conc 33.4 g/dL (32.0-36.0); Mean Corpuscular Volume 82.7 fL (80.0-100.0); Mean Platelet Volume 9.6 fL (9.4-12.4); Monocytes # (auto) 0.27 K/uL (0.11-0.59); Monocytes % (auto) 2.3 %; Neutrophils # (auto) 10.41 K/uL (1.40-6.50); Neutrophils % (auto) 87.8 %; Platelet Count 289 K/uL (130-400); RDW Coefficient of Variation 12.9 % (11.5-14.5); RDW Standard Deviation 39.3 fL (36.4-46.3); White Blood Count 11.86 K/ul (4.8-10.8)
[2023-12-12 08:13] VITALS: RESP 16; O2SAT 100
[2023-12-12 08:20] LABS: Anion Gap 8 (3-11); Calcium 9.8 mg/dl (8.6-10.3); Carbon Dioxide 24 mmol/L (21-32); Chloride 107 mmol/L (98-107); Magnesium 1.9 mg/dl (1.7-2.4); Sodium 139 mmol/L (136-145)
[2023-12-12 08:26] LABS: BUN Creatinine Ratio 17.2 (10-20); Blood Urea Nitrogen 10 mg/dl (6-23); Creatinine Clr Calc Pharmacy 167.6 ml/min; Est GFR (African American) > 150.0 ml/min; Est GFR (Non-African American) 132.7 ml/min; Glucose 139 mg/dl (70-99(Fasting))
[2023-12-12] MEDS ORDERED: FLUTICASONE PROPIONATE NA SPR 16 GM BTL SCH (09:00)
[2023-12-12] MEDS ORDERED: FLUoxetine HCL 20 MG CAP PO SCH ×2 (09:00→21:00)
[2023-12-12] MEDS ORDERED: FAMOTIDINE 20 MG in SYRINGE 3 ML IV SCH (09:00)
--- NOTE | 2023-12-12 11:17 | Electrocardiogram Report ---
Test Reason : Blood Pressure : / mmHG Vent. Rate : 088 BPM Atrial Rate : 088 BPM P-R Int : 140 ms QRS Dur : 088 ms QT Int : 372 ms P-R-T Axes : 068 067 001 degrees QTc Int : 450 ms Normal sinus rhythm Possible Left atrial enlargement Borderline ECG When compared with ECG of 26-FEB-2023 17:10, No significant change was found Confirmed by Favio Murray ([id number]) on 12/12/2023 11:17:18 AM Referred By: [facility] Confirmed By:Jorge Murray
[2023-12-12] MEDS ORDERED: methylPREDNISolone 40 MG in SYRINGE 0 ML IV SCH ×2 (12:00)
[2023-12-12 12:09] VITALS: PULSE 84; TEMP 99
[2023-12-12] MEDS ORDERED: diphenhydrAMINE 50 MG/ML VIAL IV SCH (12:30)
--- NOTE | 2023-12-12 13:08 | Discharge Summary ---
Date of Service December 12, 2023 Admission HPI Per Admitting Provider 17 yo female with PMHx of chronic idiopathic urticaria, mast cell activation syndrome, migraines, anxiety, and gastroparesis presents with allergic reaction. Earlier today at 2 PM patient ate avocado and subsequently experienced generalized itching, throat/tongue swelling, difficulty breathing, and diarrhea. Due to possible anaphylaxis patient did have a dose of epinephrine on the way to the ED. Denies fever, chills, fatigue, chest pain, abdominal pain, nausea, vomiting, constipation, dysuria, extremity numbness/tingling/weakness. In the ED she did start feeling better after receiving steroids, Benadryl, Ativan, and IVF. Of note she was diagnosed with COVID yesterday. She has a longstanding history of chronic idiopathic urticaria and mast cell activation for which she follows with allergy for. She has numerous amounts of allergies and this presentation has occurred in the past as recently as fall 2022. Admission Exam Per Admitting Provider Constitutional: in no acute distress, pleasant and normal affect, intact memory. AOx3. Vitals as above. HEENT: No scleral injection or discharge.Moist mucous membranes.Clear orop harynx/airway without significant tongue swelling. Neck: Supple, nontender, without lymphadenopathy. Trachea midline. Lungs: Clear to auscultation bilaterally with good effort. No wheezes/rales/rhonchi. Cardiac: Tachycardic. Normal rhythm. No murmurs. No lower extremity edema. 2+ distal peripheral pulses. Abdomen: Bowel sounds present. Soft, nontender, and nondistended.No guarding. No hepatosplenomegaly. MSK: No cyanosis or clubbing. Extremities motor strength 5/5. Skin: No rashes, warm, dry. Neurologic: no focal deficits Principal Diagnosis Anaphylaxis Discharge Exam General: Awake, conversant Heart: S1, S2/regular rate and rhythm, no murmur rubs or gallops Lungs: Clear to auscultation bilaterally. Normal effort Abdomen: Soft/nontender/nondistended. No hepatosplenomegaly Extremities: No clubbing/cyanosis. No edema Behavior: Appropriate, cooperative Discharge Data Allergies Allergy/AdvReac Type Severity Reaction Status Date / Time docusate [From Senna-S] Allergy Severe Hives, Verified 12/11/23 22:01 stridor plecanatide [From Trulance] Allergy Severe Anaphylaxis Verified 12/11/23 17:11 polyethylene glycol Allergy Severe Anaphylaxis Verified 12/11/23 17:11 [From Golytely] potassium chloride Allergy Severe Anaphylaxis Verified 12/11/23 17:11 [From Golytely] senna [From Senna-S] Allergy Severe Hives, Verified 12/11/23 22:01 stridor sodium [From Golytely] Allergy Severe Anaphylaxis Verified 12/11/23 17:11 sodium bicarbonate Allergy Severe Anaphylaxis Verified 12/11/23 17:11 [From Golytely] sodium chloride Allergy Severe Anaphylaxis Verified 12/11/23 17:11 [From Golytely] sodium sulfate Allergy Severe Anaphylaxis Verified 12/11/23 17:11 [From Golytely] adhesive Allergy Intermediate Hives Verified 12/11/23 22:01 latex Allergy Intermediate Rash Verified 12/11/23 17:11 oxycodone Allergy Intermediate hives/rash Verified 12/11/23 17:11 Penicillins Allergy Intermediate vomiting/ra Verified 12/11/23 17:11 sh polyethylene glycol 3350 Allergy Intermediate hives/itchi Verified 12/11/23 17:11 [From Miralax] ng Sulfa (Sulfonamide Allergy Intermediate Rash Verified 12/11/23 17:11 Antibiotics) sulfamethoxazole Allergy Intermediate Rash Verified 12/11/23 17:11 [From Sulfamethoxazole-Trimethoprim] tetrahydrozoline Allergy Intermediate Rash Verified 12/11/23 17:11 trimethoprim Allergy Intermediate Rash Verified 12/11/23 17:11 [From Sulfamethoxazole-Trimethoprim] zinc Allergy Intermediate Itching Verified 12/11/23 22:03 nickel Allergy Mild Rash Verified 12/11/23 17:11 aspirin AdvReac Severe gi bleed Verified 12/11/23 17:11 gluten AdvReac Severe celiac Verified 12/11/23 17:11 disease ibuprofen AdvReac Severe gi bleed Verified 12/11/23 17:11 NSAIDS (Non-Steroidal AdvReac Severe gi bleed Verified 12/11/23 17:11 Anti-Inflamma metoclopramide [From Reglan] AdvReac Intermediate muscle Verified 12/11/23 17:11 spasm clarithromycin [From Biaxin] AdvReac Unknown unsure Verified 12/11/23 17:11 ferric carboxymaltose AdvReac Unknown unsure Verified 12/11/23 17:11 Consultations 12/11/23 19:12 ED Decision to Admit Stat 12/11/23 20:19 Consult Allergy / Immunology Routine Hospital Course (1) COVID-19: (2) Mast cell activation syndrome: (3) Anxiety: (4) Chronic idiopathic urticaria: (5) Migraine: (6) Gastroparesis: (7) Allergic reaction: Plan 1. Anaphylaxis/allergic reaction 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 syndrome Patient presented with an episode of hives, tongue/throat swelling, generalized itchiness after eating avocado. She immediately used EpiPen on the way to ED. In the ER, she was given Benadryl, Ativan, Solu-Medrol with improvement. A few hours later, she developed a repeat episode but this time she did not need EpiPen. She was treated with IV Solu-Medrol Clinically improved. All symptoms resolved. Tongue is not swollen anymore. No rash anymore. I personally spoke to her motor vehicle licence examiner who recommended that she be discharged on p.o. prednisone that has already been prescribed by the motor vehicle licence examiner She has a follow-up appointment with her motor vehicle licence examiner for tomorrow. The mother requested that I give her a prescription for EpiPen She can continue Benadryl as needed 2. COVID Diagnosed on 12/10 with PCP Not hypoxic or short of breath Supportive care 3. Gastroparesis, continue famotidine 4. Anxiety, continue fluoxetine 5. Migraines, continue Nurtec 6. Hypokalemia. Potassium improved Plan is to discharge the patient today with prednisone taper that has already been prescribed by her motor vehicle licence examiner Total Time Total Time Spent Total Time Spent (In Minutes): 35 Discharge Plan Discharge Items Patient Disposition: Home - Self-Care Reason For Visit: ANAPHYLAXIS Discharge Diagnosis: Anaphylaxis Activity: Resume your previous activity Non-emergency contact: Primary Care Provider Call non-emergency contact if: you have any medication questions and your symptoms worsen Follow-up/Referrals: Araseli Pacheco MD [Primary Care Provider] - Diet: Regular Addtl Attending Provider Instructions: Advised to follow-up with PCP in 1 week Advised to note that you will get a call from your motor vehicle licence examiner's office to schedule a follow-up appointment Advised to continue the prednisone taper that was prescribed by your motor vehicle licence examiner Pending Studies at Discharge: No Stand-Alone Forms: [facility] Order Prescriptions: New epinephrine [EpiPen] 0.3 mg/0.3 mL auto-injector 0.3 mg IM Q4H PRN (Reason: anaphylaxis) Qty: 2 0RF Continued Xolair 150 mg/mL syringe 300 mg subcut .COMPLEX Qty: 4 11RF Rx Instructions: INJECT 300 mg subcutaneously EVERY 2 WEEKS APPROVED GOOD 10/16/23 - 10/16/24 prednisone 10 mg tablet See Rx Instructions PO .COMPLEX Qty: 30 0RF Rx Instructions: 50mg x 2 days, 40mg x 2days, 30mg x 2days, 20mg x2days, 10mg x 2day fluoxetine 20 mg capsule 20 mg PO DAILY lorazepam 0.5 mg tablet 0.5 mg PO DAILY PRN (Reason: Anxiety) Rx Instructions: Patient says her dose is 2 mg tid prn, but I can find no record of this. This dose above is from dr bain. ondansetron HCl 8 mg tablet 8 mg PO DAILY PRN (Reason: Nausea) cetirizine 10 mg tablet 20 mg PO BID Qty: 60 11RF Nurtec ODT 75 mg tablet,disintegrating 75 mg PO Q OTHER DAY hydroxyzine HCl 25 mg tablet 50 mg PO QID PRN (Reason: hives) Rx Instructions: Patient says she takes 50 mg as a dose, Dr bain says 25mg a dose. famotidine 40 mg tablet 40 mg PO BID Qty: 180 3RF epinephrine 0.3 mg/0.3 mL auto-injector 0.3 mg IM Q4H PRN (Reason: Anaphylaxis) Qty: 2 4RF fluticasone propionate [Flonase Allergy Relief] 50 mcg/actuation spray,suspension 2 spray intranasal DAILY Qty: 1 0RF Rx Instructions: administer into each nostril levalbuterol tartrate 45 mcg/actuation HFA aerosol inhaler 1 puff inhalation Q6H PRN (Reason: Wheezing) Qty: 1 0RF Discharge Orders: Discharge Order (Routine); Ordered 12/12/23 Ordered By: Remberto Vaughan Admission Data Admit Date/Time: 12/11/23 20:19 Attending Provider: Remberto Vaughan Admit Provider: Dave Lambert Primary Care Provider: rAaseli Pacheco Other Providers: Les Ramirez; Robin Melissa Coding Level of Care Code 71548 INP/OBS DISCH >30 MIN Diagnoses COVID-19 U07.1 Mast cell activation syndrome D89.40 Anxiety F41.9 Chronic idiopathic urticaria L50.1 Migraine G43.909 Gastroparesis K31.84 Allergic reaction T78.40XA
[2023-12-12 13:29] VITALS: BP 146/99
--- NOTE | 2023-12-12 19:15 | Billing Data ---
Date of Service December 12, 2023 Coding Level of Care Code 25329 INT INP/OBS CARE
== END 2023-12-12 06:35 | disposition home or self-care (01) | DRG 814 ==
LOC: ED 16:26 → EDINP 20:19 → SUATTDRO 20:19 → EDINP 21:51
DX: Z88.6 Allergy status to analgesic agent; Z91.048 Other nonmedicinal substance allergy status; L50.1 Idiopathic urticaria; T78.04XA Anaphylactic reaction due to fruits and vegetables, initial encounter; K90.0 Celiac disease; Z88.0 Allergy status to penicillin; Z88.5 Allergy status to narcotic agent; U07.1 COVID-19; Z79.899 Other long term (current) drug therapy; Z91.040 Latex allergy status; Z88.2 Allergy status to sulfonamides; Z79.620 Long term (current) use of immunosuppressive biologic; K31.84 Gastroparesis; Z88.1 Allergy status to other antibiotic agents; F41.9 Anxiety disorder, unspecified; G43.909 Migraine, unspecified, not intractable, without status migrainosus; Z88.8 Allergy status to other drugs, medicaments and biological substances; D89.40 Mast cell activation, unspecified; E87.6 Hypokalemia

== ENCOUNTER 2023-12-12 19:17 | Inpatient (IN) ==
[2023-12-12] MEDS ORDERED: methylPREDNISolone 125 MG/2 ML VIAL IV STA (19:26)
[2023-12-12] MEDS ORDERED: FAMOTIDINE 20MG IV PUSH 20 MG/5 ML SYR IV STA (19:26)
[2023-12-12] MEDS ORDERED: diphenhydrAMINE 50 MG/ML VIAL IV STA ×2 (19:26→21:05)
[2023-12-12] MEDS ORDERED: LACTATED RINGER'S 1,000 ML IV ONE (19:27)
[2023-12-12 20:04] LABS: Base Excess VBG 0 mEq/L; HCO3 VBG 25 mmol/L; Oxygen Saturation VBG 85.7 %; PCO2 VBG 40 mmHg (38-50); PO2 VBG 54 mmHg
[2023-12-12] MEDS ORDERED: LORazepam 1 MG TAB SL STA (20:12)
[2023-12-12 20:24] LABS: BUN Creatinine Ratio 22.9 (10-20); Basophils # (auto) 0.04 K/uL (0.00-0.20); Basophils % (auto) 0.2 %; Calcium 9.7 mg/dl (8.6-10.3); Creatinine Clr Calc Pharmacy 119.9 ml/min; Est GFR (African American) 117.7 ml/min; Est GFR (Non-African American) 101.5 ml/min; Hematocrit (blood only) 39.5 % (37.0-47.0); Hemoglobin 12.9 g/dl (12.0-16.0); Immature Granulocytes # (auto) 0.11 K/uL (0.01-0.20); Immature Granulocytes % (auto) 0.5 %; Lymphocytes # (auto) 2.45 K/uL (1.20-3.40); Lymphocytes % (auto) 10.5 %; Mean Corpuscular Hemoglobin 27.7 pg (25.0-34.0); Mean Corpuscular Hgb Conc 32.7 g/dL (32.0-36.0); Mean Corpuscular Volume 84.8 fL (80.0-100.0); Mean Platelet Volume 9.8 fL (9.4-12.4); Monocytes # (auto) 2.24 K/uL (0.11-0.59); Monocytes % (auto) 9.6 %; Neutrophils # (auto) 18.41 K/uL (1.40-6.50); Neutrophils % (auto) 79.2 %; Platelet Count 355 K/uL (130-400); Potassium 3.5 mmol/L (3.5-5.1); RDW Coefficient of Variation 13.3 % (11.5-14.5); RDW Standard Deviation 41.3 fL (36.4-46.3); Red Blood Count 4.66 M/uL (4.20-5.40); White Blood Count 23.25 K/ul (4.8-10.8)
[2023-12-12] MEDS ORDERED: LORazepam 0.25 MG in SYRINGE 0.125 ML IV STA (21:08)
[2023-12-12] MEDS ORDERED: ACETAMINOPHEN 1,000 MG/100 ML VIAL IV STA (21:16)
--- NOTE | 2023-12-12 21:16 | Emergency Department Note ---
History of Present Illness General Chief complaint: Allergic Reaction Stated complaint: ALLERGIC REACTION Time Seen by Provider: 12/12/23 19:20 History of Present Illness Provider complaint: allergic reaction Onset (ago): hour(s) 1 Exposure: food (Possibly almond flour) Symptoms: difficulty breathing and tongue swelling Treatment prior to arrival: epinephrine (Epinephrine 5 minutes ago and 15 minutes ago IM prior to arrival.) Previous Allergic Reaction History: anaphylaxis Home Medications Medication Instructions Recorded Confirmed Type cetirizine 10 mg tablet 20 mg (2 x 10 mg) PO BID #60 tabs 12/19/22 12/12/23 Rx fluoxetine 20 mg capsule 20 mg PO DAILY 12/19/22 12/12/23 History lorazepam 0.5 mg tablet 0.5 mg PO DAILY PRN Anxiety 12/19/22 12/12/23 History ondansetron HCl 8 mg tablet 8 mg PO DAILY PRN Nausea 12/19/22 12/12/23 History rimegepant 75 mg disintegrating 75 mg PO Q OTHER DAY 02/26/23 12/12/23 History tablet (Nurtec ODT) hydroxyzine HCl 25 mg tablet 25 mg PO QID PRN hives 08/17/23 12/12/23 History epinephrine 0.3 mg/0.3 mL 0.3 mg (0.3 mL) IM Q4H PRN 08/20/23 12/12/23 Rx injection, auto-injector Anaphylaxis #2 ea famotidine 40 mg tablet 40 mg PO BID #180 tabs 08/20/23 12/12/23 Rx fluticasone propionate 50 2 spray intranasal DAILY #1 inh 08/20/23 12/12/23 Rx mcg/actuation nasal spray,suspension (Flonase Allergy Relief) levalbuterol tartrate 45 1 puff inhalation Q6H PRN Wheezing 08/20/23 12/12/23 Rx mcg/actuation aerosol inhaler #1 inhaler omalizumab 150 mg/mL subcutaneous 300 mg (2 mL) subcut .COMPLEX #4 mL 10/16/23 12/12/23 Rx syringe (Xolair) epinephrine 0.3 mg/0.3 mL 0.3 mg (0.3 mL) IM Q4H PRN 12/12/23 12/12/23 Rx injection, auto-injector (EpiPen) anaphylaxis #2 ea prednisone 10 mg tablet See Rx Instructions PO .COMPLEX 12/12/23 12/12/23 Rx #30 tabs Allergies Allergy/AdvReac Type Severity Reaction Status Date / Time docusate [From Senna-S] Allergy Severe Hives, Verified 12/11/23 22:01 stridor plecanatide [From Trulance] Allergy Severe Anaphylaxis Verified 12/11/23 17:11 polyethylene glycol Allergy Severe Anaphylaxis Verified 12/11/23 17:11 [From Golytely] potassium chloride Allergy Severe Anaphylaxis Verified 12/11/23 17:11 [From Golytely] senna [From Senna-S] Allergy Severe Hives, Verified 12/11/23 22:01 stridor sodium [From Golytely] Allergy Severe Anaphylaxis Verified 12/11/23 17:11 sodium bicarbonate Allergy Severe Anaphylaxis Verified 12/11/23 17:11 [From Golytely] sodium chloride Allergy Severe Anaphylaxis Verified 12/11/23 17:11 [From Golytely] sodium sulfate Allergy Severe Anaphylaxis Verified 12/11/23 17:11 [From Golytely] adhesive Allergy Intermediate Hives Verified 12/11/23 22:01 latex Allergy Intermediate Rash Verified 12/11/23 17:11 oxycodone Allergy Intermediate hives/rash Verified 12/11/23 17:11 Penicillins Allergy Intermediate vomiting/ra Verified 12/11/23 17:11 sh polyethylene glycol 3350 Allergy Intermediate hives/itchi Verified 12/11/23 17:11 [From Miralax] ng Sulfa (Sulfonamide Allergy Intermediate Rash Verified 12/11/23 17:11 Antibiotics) sulfamethoxazole Allergy Intermediate Rash Verified 12/11/23 17:11 [From Sulfamethoxazole-Trimethoprim] tetrahydrozoline Allergy Intermediate Rash Verified 12/11/23 17:11 trimethoprim Allergy Intermediate Rash Verified 12/11/23 17:11 [From Sulfamethoxazole-Trimethoprim] zinc Allergy Intermediate Itching Verified 12/11/23 22:03 nickel Allergy Mild Rash Verified 12/11/23 17:11 aspirin AdvReac Severe gi bleed Verified 12/11/23 17:11 gluten AdvReac Severe celiac Verified 12/11/23 17:11 disease ibuprofen AdvReac Severe gi bleed Verified 12/11/23 17:11 NSAIDS (Non-Steroidal AdvReac Severe gi bleed Verified 12/11/23 17:11 Anti-Inflamma metoclopramide [From Reglan] AdvReac Intermediate muscle Verified 12/11/23 17:11 spasm clarithromycin [From Biaxin] AdvReac Unknown unsure Verified 12/11/23 17:11 ferric carboxymaltose AdvReac Unknown unsure Verified 12/11/23 17:11 Past Med/Surg History Medical History Gastroparesis Migraine Anxiety 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 Social History Smoking Status: Never smoker Tobacco Type: Cigarettes Second Hand Exposure: No; Do You Dip or Chew Tobacco: No; Hx Alcohol Use: No Hx Substance Use: No Preferred Language: Nigerian Communication Ability: Effective Button Maker And Installer Required: No Beliefs That Will Affect Care: None Current Living Situation: Other Current Living Situation Comment: roommates at college Feels Safe at Home: Yes Assistive Devices: None Physical Exam Vital Signs Vital Signs - 24 hr 12/12/23 19:21 12/12/23 19:30 12/12/23 19:32 Temperature 36.8 C Temperature Source Temporal Artery Scan Pulse Rate 111 H 107 H Pulse Rate [Apical] Respiratory Rate 20 Respiratory Effort / Characteristics Non-Labored Spontaneous Respiratory Depth Normal Respiratory Pattern Regular Blood Pressure 122/69 Blood Pressure [Left Arm] Blood Pressure Mean 86 Blood Pressure Mean [Left Arm] Pulse Oximetry 98 99 Oxygen Delivery Method Room Air Room Air Sepsis Recent Fever Within 48 Hours No Sepsis New/Unexplained Change in Mental Status N/A Sepsis Action Taken by Nursing No Action Required 12/12/23 19:32 12/12/23 19:59 Temperature Temperature Source Pulse Rate 107 H Pulse Rate [Apical] 106 H Respiratory Rate 17 20 Respiratory Effort / Characteristics Non-Labored Spontaneous Respiratory Depth Normal Respiratory Pattern Regular Blood Pressure Blood Pressure [Left Arm] 114/89 Blood Pressure Mean Blood Pressure Mean [Left Arm] 97 Pulse Oximetry 99 99 Oxygen Delivery Method Room Air Room Air Sepsis Recent Fever Within 48 Hours Sepsis New/Unexplained Change in Mental Status Sepsis Action Taken by Nursing Physical Exam HENT: Exam performed. -Head: Normocephalic and atraumatic. -Right Ear: External ear normal. No mastoid erythema -Left Ear: External ear normal. No mastoid erythema -Mouth/Throat: The oropharynx is clear and moist. No trismus in the jaw. No dental abscesses or uvula swelling. No oropharyngeal exudate or tonsillar abscesses. No tongue lip or uvular swelling. No submental swelling. No tongue elevation. EYES: Conjunctivae and EOM are normal. Pupils are equal, round, and reactive to light. Right eye exhibits no discharge. Left eye exhibits no discharge. No scleral icterus. NECK: Normal range of motion. Neck supple. No JVD present. CV: Normal rate, regular rhythm, normal heart sounds and intact distal pulses. There is no peripheral edema. Palpable radial pulses bue. PULM/CHEST: Effort normal and breath sounds normal. No respiratory distress. No stridor. She has no wheezes. She has no rales. ABD: The abdomen is soft. MUSC/SKEL: Normal range of motion. There is no peripheral edema, tenderness or deformity. NEURO: Motor and sensation grossly intact. SKIN: Skin is warm and dry. She is not diaphoretic. PSYCH: Bizarre affect. Course Course 1919: The patient was evaluated in room B1. A complete history and physical exam was performed Cardiac monitoring: An order was placed for continuous cardiac monitoring. The monitor shows a rate of 100 with sinus rhythm interpreted by me 2000: Patient speaking full sentences. Tolerating p.o. Oxygen saturations are stable 2030: Vital signs stable. Labs show leukocytosis of 23.25, thought to be reactive secondary to the patient's recent steroid administration. Mother states she did not feel comfortable taking the patient home. [facility]. Administered Medications Discontinued Medications Diphenhydramine HCl (Diphenhydramine 50 Mg/Ml Vial) 50 mg IV NOW STA Stop: 12/12/23 19:27 Last Admin: 12/12/23 19:40 Dose: 50 mg Documented By: MED Diphenhydramine HCl (Diphenhydramine 50 Mg/Ml Vial) 25 mg IV NOW STA Stop: 12/12/23 21:06 Last Admin: 12/12/23 21:19 Dose: 25 mg Documented By: MED Famotidine (Pepcid 20mg Iv Push) 20 mg in 5 mls @ 2.5 mls/min IV NOW STA Stop: 12/12/23 19:27 Last Admin: 12/12/23 19:50 Dose: 2.5 mls/min Documented By: MED Lactated Ringer's (Lr) 1,000 mls @ 999 mls/hr IV .Q1H1M ONE Stop: 12/12/23 20:27 Last Infusion: 12/12/23 22:48 Dose: Infused Documented By: Admin: 12/12/23 19:38 Dose: 999 mls/hr Documented By: MED Lorazepam 0.25 mg/ Syringe 0.25 mls @ 2 mls/min IV NOW STA Stop: 12/12/23 21:09 Last Admin: 12/12/23 21:22 Dose: 2 mls/min Documented By: MED Acetaminophen (Ofirmev) 1,000 mg in 100 mls @ 400 mls/hr IV NOW STA Stop: 12/12/23 21:30 Last Admin: 12/12/23 22:35 Dose: 400 mls/hr Documented By: KEITH Lorazepam (Lorazepam 1 Mg Tab) 1 mg SL NOW STA Stop: 12/12/23 20:13 Last Admin: 12/12/23 20:15 Dose: 1 mg Documented By: MED Methylprednisolone (Methylprednisolone 125 Mg/2 Ml Vial) 125 mg IV NOW STA Stop: 12/12/23 19:27 Last Admin: 12/12/23 19:46 Dose: 125 mg Documented By: MED Medical Decision Making Laboratory Data Attestation: I reviewed the patient's lab results. 12/12/23 19:50 12/12/23 19:50 Lab Results 12/12/23 Range/Units 19:50 WBC 23.25 H D (4.8-10.8) K/ul RBC 4.66 (4.20-5.40) M/uL Hgb 12.9 (12.0-16.0) g/dl Hct 39.5 (37.0-47.0) % MCV 84.8 (80.0-100.0) fL MCH 27.7 (25.0-34.0) pg MCHC 32.7 (32.0-36.0) g/dL RDW Std Deviation 41.3 (36.4-46.3) fL RDW Coeff of Layla 13.3 (11.5-14.5) % Plt Count 355 (130-400) K/uL MPV 9.8 (9.4-12.4) fL Immature Gran % (Auto) 0.5 % Neut % (Auto) 79.2 % Lymph % (Auto) 10.5 % Nuckolls % (Auto) 9.6 % Eos % (Auto) 0.0 % Baso % (Auto) 0.2 % Neut # (Auto) 18.41 H (1.40-6.50) K/uL Lymph # (Auto) 2.45 (1.20-3.40) K/uL [place]oll[place] # (Auto) 2.24 H (0.11-0.59) K/uL Eos # (Auto) 0.00 (0.00-0.50) K/uL Baso # (Auto) 0.04 (0.00-0.20) K/uL Immature Gran # (Auto) 0.11 (0.01-0.20) K/uL VBG pH 7.40 (7.36-7.41) VBG pCO2 40 (38-50) mmHg VBG pO2 54 mmHg VBG HCO3 25 mmol/L VBG O2 Saturation 85.7 % VBG Base Excess 0 mEq/L Sodium 138 (136-145) mmol/L Potassium 3.5 (3.5-5.1) mmol/L Chloride 105 (98-107) mmol/L Carbon Dioxide 23 (21-32) mmol/L Anion Gap 10 (3-11) BUN 19 (6-23) mg/dl Creatinine 0.83 (0.6-1.2) mg/dl Est Cr Clr Drug Dosing 119.9 ml/min Est GFR ( Amer) 117.7 ml/min Est GFR (Non-Af Amer) 101.5 ml/min BUN/Creatinine Ratio 22.9 H (10-20) Glucose 157 H (70-99(Fasting)) mg/dl Calcium 9.7 (8.6-10.3) mg/dl MDM Narrative MDM Narrative: 1920: The patient was evaluated in room B1. A complete history and physical exam was performed Cardiac monitoring: An order was placed for continuous cardiac monitoring. The monitor shows a rate of 100 with sinus rhythm interpreted by me 2000: Patient speaking full sentences. Tolerating p.o. Oxygen saturations are stable 2030: Vital signs stable. Labs show leukocytosis of 23.25, thought to be reactive secondary to the patient's recent steroid administration. Mother states she did not feel comfortable taking the patient home. Patient will be read[facility] to the [facility] hospitalist service Dr. Conde's team will be notified. Impression & Plan Allergic reaction, Mast cell activation syndrome Discharge Plan Visit Data Chief Complaint: Allergic Reaction Stated Complaint: ALLERGIC REACTION ED Provider: Neri Lazo Discharge Problem: Allergic reaction, Mast cell activation syndrome Patient Disposition: Being Evaluated by Hospitalist Discharge Instructions Interventions: ED Discharge Assessment Last Done: 12/12/23 22:46
--- NOTE | 2023-12-12 21:25 | History & Physical Report ---
Date of Service December 12, 2023 Assessment & Plan (1) Allergic reaction: Plan: 17 yo female with PMHx of chronic idiopathic urticaria, mast cell activation syndrome, migraines, anxiety, and gastroparesis presents with allergic reaction. #Allergic reaction, ?Anaphylaxis #Chronic idiopathic urticaria #Mast cell activation syndrome -Was just discharged from [facility] morning of 12/12/2023 for similar symptoms. This visit she presented with an episode of hives, throat/tongue swelling, generalized itchiness following consumption of almond flour. She is allergic to almonds. She did immediately use epi-pen. In ED was given, benadryl, ativan, and solumedrol with improvement. Similar presentation during previous hospitalization and will treat similarly. -benadryl q4h scheduled + benadryl q2h prn -solumedrol q8h scheduled - defer to allergy for need of steroids -epinephrine prn -she is chronically on Xolair. Will hold home cetirizine while on benadryl. -Allergy/immunology consulted #COVID -diagnosed 12/10/23 with PCP - solumedrol as above - otherwise supportive care #Gastroparesis -cont. famotidine #Anxiety -cont. fluoxetine -ativan prn #Migraines -cont. Nurtec prn DVT ppx: ambulation FEN/GI: strict NPO during episodes of throat/tongue swelling Code Status: full Dispo: med tele (2) COVID-19: (3) Mast cell activation syndrome: (4) Anxiety: (5) Chronic idiopathic urticaria: (6) Migraine: (7) Gastroparesis: History of Present Illness Chief Complaint: anaphylaxis Primary Care Provider: Araseli Pacheco MD 17 yo female with PMHx of chronic idiopathic urticaria, mast cell activation syndrome, migraines, anxiety, and gastroparesis presents with allergic reaction. Was discharged from [facility] this morning and was doing great all day. For dinner she had a variety of foods including cookies made out of almond flour which she is allergic too. 30 minutes after started experiencing generalized itching, throat/tongue swelling, difficulty breathing, abd pain, and diarrhea. Due to possible anaphylaxis patient did have a dose of epinephrine IM. Denies fever, chills, fatigue, chest pain, nausea, vomiting, constipation, dysuria, extremity numbness/tingling/weakness. She has a longstanding history of chronic idiopathic urticaria and mast cell activation for which she follows with allergy for. Allergies Allergy/AdvReac Type Severity Reaction Status Date / Time docusate [From Senna-S] Allergy Severe Hives, Verified 12/11/23 22:01 stridor plecanatide [From Trulance] Allergy Severe Anaphylaxis Verified 12/11/23 17:11 polyethylene glycol Allergy Severe Anaphylaxis Verified 12/11/23 17:11 [From Golytely] potassium chloride Allergy Severe Anaphylaxis Verified 12/11/23 17:11 [From Golytely] senna [From Senna-S] Allergy Severe Hives, Verified 12/11/23 22:01 stridor shellfish derived Allergy Severe Unknown Verified 12/13/23 15:21 sodium [From Golytely] Allergy Severe Anaphylaxis Verified 12/11/23 17:11 sodium bicarbonate Allergy Severe Anaphylaxis Verified 12/11/23 17:11 [From Golytely] sodium chloride Allergy Severe Anaphylaxis Verified 12/11/23 17:11 [From Golytely] sodium sulfate Allergy Severe Anaphylaxis Verified 12/11/23 17:11 [From Golytely] adhesive Allergy Intermediate Hives Verified 12/11/23 22:01 latex Allergy Intermediate Rash Verified 12/11/23 17:11 oxycodone Allergy Intermediate hives/rash Verified 12/11/23 17:11 Penicillins Allergy Intermediate vomiting/ra Verified 12/11/23 17:11 sh polyethylene glycol 3350 Allergy Intermediate hives/itchi Verified 12/11/23 17:11 [From Miralax] ng Sulfa (Sulfonamide Allergy Intermediate Rash Verified 12/11/23 17:11 Antibiotics) sulfamethoxazole Allergy Intermediate Rash Verified 12/11/23 17:11 [From Sulfamethoxazole-Trimethoprim] tetrahydrozoline Allergy Intermediate Rash Verified 12/11/23 17:11 trimethoprim Allergy Intermediate Rash Verified 12/11/23 17:11 [From Sulfamethoxazole-Trimethoprim] zinc Allergy Intermediate Itching Verified 12/11/23 22:03 nickel Allergy Mild Rash Verified 12/11/23 17:11 almond Allergy Unknown Unknown Verified 12/13/23 15:21 cashew nut Allergy Unknown Unknown Verified 12/13/23 15:21 clams Allergy Unknown Unknown Verified 12/13/23 15:21 crab Allergy Unknown Unknown Verified 12/13/23 15:21 egg Allergy Unknown Unknown Verified 12/13/23 15:21 hazelnut Allergy Unknown Unknown Verified 12/13/23 15:23 lobster Allergy Unknown Unknown Verified 12/13/23 15:23 scallops Allergy Unknown Unknown Verified 12/13/23 15:23 sesame seed Allergy Unknown Unknown Verified 12/13/23 15:23 shrimp Allergy Unknown Unknown Verified 12/13/23 15:23 soybean Allergy Unknown Unknown Verified 12/13/23 15:23 walnut Allergy Unknown Unknown Verified 12/13/23 15:23 aspirin AdvReac Severe gi bleed Verified 12/11/23 17:11 gluten AdvReac Severe celiac Verified 12/11/23 17:11 disease ibuprofen AdvReac Severe gi bleed Verified 12/11/23 17:11 NSAIDS (Non-Steroidal AdvReac Severe gi bleed Verified 12/11/23 17:11 Anti-Inflamma metoclopramide [From Reglan] AdvReac Intermediate muscle Verified 12/11/23 17:11 spasm avocado AdvReac Unknown Swelling Verified 12/13/23 15:25 of Lip/Tongue/Throat banana AdvReac Unknown Swelling Verified 12/13/23 15:25 of Lip/Tongue/Throat clarithromycin [From Biaxin] AdvReac Unknown unsure Verified 12/11/23 17:11 ferric carboxymaltose AdvReac Unknown unsure Verified 12/11/23 17:11 Home Medications Medication Instructions Recorded Confirmed Type cetirizine 10 mg tablet 20 mg (2 x 10 mg) PO BID #60 tabs 12/19/22 12/12/23 Rx fluoxetine 20 mg capsule 20 mg PO DAILY 12/19/22 12/12/23 History lorazepam 0.5 mg tablet 0.5 mg PO DAILY PRN Anxiety 12/19/22 12/12/23 History ondansetron HCl 8 mg tablet 8 mg PO DAILY PRN Nausea 12/19/22 12/12/23 History rimegepant 75 mg disintegrating 75 mg PO Q OTHER DAY 02/26/23 12/12/23 History tablet (Nurtec ODT) hydroxyzine HCl 25 mg tablet 25 mg PO QID PRN hives 08/17/23 12/12/23 History epinephrine 0.3 mg/0.3 mL 0.3 mg (0.3 mL) IM Q4H PRN 08/20/23 12/12/23 Rx injection, auto-injector Anaphylaxis #2 ea famotidine 40 mg tablet 40 mg PO BID #180 tabs 08/20/23 12/12/23 Rx fluticasone propionate 50 2 spray intranasal DAILY #1 inh 08/20/23 12/12/23 Rx mcg/actuation nasal spray,suspension (Flonase Allergy Relief) levalbuterol tartrate 45 1 puff inhalation Q6H PRN Wheezing 08/20/23 12/12/23 Rx mcg/actuation aerosol inhaler #1 inhaler omalizumab 150 mg/mL subcutaneous 300 mg (2 mL) subcut .COMPLEX #4 mL 10/16/23 12/12/23 Rx syringe (Xolair) epinephrine 0.3 mg/0.3 mL 0.3 mg (0.3 mL) IM Q4H PRN 12/12/23 12/12/23 Rx injection, auto-injector (EpiPen) anaphylaxis #2 ea prednisone 10 mg tablet See Rx Instructions PO .COMPLEX 12/12/23 12/12/23 Rx #30 tabs doxepin 10 mg/mL oral concentrate 5 mg (0.5 mL) PO DAILY #120 mL 12/13/23 Rx Past Med/Surg History Medical History (Updated 12/13/23 @ 23:47 by DERRELL Borges) Oral allergy syndrome Angioedema Gastroparesis Migraine Anxiety 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 Social History Smoking Status: Never smoker Tobacco Type: Cigarettes Second Hand Exposure: No; Do You Dip or Chew Tobacco: No; Hx Alcohol Use: No Hx Substance Use: No Preferred Language: Kyrgyz Communication Ability: Effective Reimbursement Counselor Required: No Beliefs That Will Affect Care: None Current Living Situation: Other Current Living Situation Comment: college roommates Feels Safe at Home: Yes Assistive Devices: None Review of Systems Review of Systems: All systems reviewed & are unremarkable except as noted in HPI & below Physical Exam Physical Exam: Constitutional: anxious appearing, in no acute distress, pleasant, intact memory. AOx3. Vitals as above. HEENT: No scleral injection or discharge.Moist mucous membranes.Moderate tongue swelling, oropharynx patent without stridor. Neck: Supple, nontender, without lymphadenopathy. Trachea midline. Lungs: Clear to auscultation bilaterally with good effort. No wheezes/rales/rhonchi. Cardiac: Tachycardic. Normal rhythm. No murmurs. No lower extremity edema. 2+ distal peripheral pulses. Abdomen: Bowel sounds present. Soft, nontender, and nondistended.No guarding. No hepatosplenomegaly. MSK: No cyanosis or clubbing. Extremities motor strength 5/5. Skin: No rashes, warm, dry. Neurologic: no focal deficits Results & Data Results & Data Vital Signs (Past 12 Hours) Vital Signs Temp Pulse Pulse Resp BP BP Pulse Ox 12/12/23 19:59 107 H 20 99 12/12/23 19:32 106 H 17 114/89 99 12/12/23 19:32 99 12/12/23 19:30 107 H 12/12/23 19:21 36.8 C 111 H 20 122/69 98 O2 Del Method 12/12/23 19:59 Room Air 12/12/23 19:32 Room Air 12/12/23 19:32 Room Air 12/12/23 19:30 12/12/23 19:21 Room Air Laboratory Results Laboratory Results WBC 23.25 K/ul (4.8-10.8) H D 12/12/23 19:50 RBC 4.66 M/uL (4.20-5.40) 12/12/23 19:50 Hgb 12.9 g/dl (12.0-16.0) 12/12/23 19:50 Hct 39.5 % (37.0-47.0) 12/12/23 19:50 MCV 84.8 fL (80.0-100.0) 12/12/23 19:50 MCH 27.7 pg (25.0-34.0) 12/12/23 19:50 MCHC 32.7 g/dL (32.0-36.0) 12/12/23 19:50 RDW Std Deviation 41.3 fL (36.4-46.3) 12/12/23 19:50 RDW Coeff of Layla 13.3 % (11.5-14.5) 12/12/23 19:50 Plt Count 355 K/uL (130-400) 12/12/23 19:50 MPV 9.8 fL (9.4-12.4) 12/12/23 19:50 Immature Gran % (Auto) 0.5 % 12/12/23 19:50 Neut % (Auto) 79.2 % 12/12/23 19:50 Lymph % (Auto) 10.5 % 12/12/23 19:50 [place] % (Auto) 9.6 % 12/12/23 19:50 Eos % (Auto) 0.0 % 12/12/23 19:50 Baso % (Auto) 0.2 % 12/12/23 19:50 Neut # (Auto) 18.41 K/uL (1.40-6.50) H 12/12/23 19:50 Lymph # (Auto) 2.45 K/uL (1.20-3.40) 12/12/23 19:50 [place] # (Auto) 2.24 K/uL (0.11-0.59) H 12/12/23 19:50 Eos # (Auto) 0.00 K/uL (0.00-0.50) 12/12/23 19:50 Baso # (Auto) 0.04 K/uL (0.00-0.20) 12/12/23 19:50 Immature Gran # (Auto) 0.11 K/uL (0.01-0.20) 12/12/23 19:50 VBG pH 7.40 (7.36-7.41) 12/12/23 19:50 VBG pCO2 40 mmHg (38-50) 12/12/23 19:50 VBG pO2 54 mmHg 12/12/23 19:50 VBG HCO3 25 mmol/L 12/12/23 19:50 VBG O2 Saturation 85.7 % 12/12/23 19:50 VBG Base Excess 0 mEq/L 12/12/23 19:50 Sodium 138 mmol/L (136-145) 12/12/23 19:50 Potassium 3.5 mmol/L (3.5-5.1) 12/12/23 19:50 Chloride 105 mmol/L (98-107) 12/12/23 19:50 Carbon Dioxide 23 mmol/L (21-32) 12/12/23 19:50 Anion Gap 10 (3-11) 12/12/23 19:50 BUN 19 mg/dl (6-23) 12/12/23 19:50 Creatinine 0.83 mg/dl (0.6-1.2) 12/12/23 19:50 Est Cr Clr Drug Dosing 119.9 ml/min 12/12/23 19:50 Est GFR ( Amer) 117.7 ml/min 12/12/23 19:50 Est GFR (Non-Af Amer) 101.5 ml/min 12/12/23 19:50 BUN/Creatinine Ratio 22.9 (10-20) H 12/12/23 19:50 Glucose 157 mg/dl (70-99(Fasting)) H 12/12/23 19:50 Calcium 9.7 mg/dl (8.6-10.3) 12/12/23 19:50 Supervising Physician Co-Signing Physician Notes Attending addendum: I have physically seen this patient, have supervised the medical residents activities, and agree with the H&P unless as otherwise noted. Assessment and Plan: Allergic reaction/mast cell activation syndrome/chronic idiopathic urticaria/multiple allergies on RAST testing 12-06-2023-- Likely culprit was ingestion of almond flour, with recent testing showing that she is allergic to almonds. She did use her EpiPen as directed, and came to the ED Will continue Solu-Medrol, Benadryl, famotidine as outlined Continue Xolair Add RAST testing for [place] panel Consult to allergy/immunology COVID-19- Diagnosed 12/10/2023 with PCP in outpatient setting Supportive treatment with Solu-Medrol as noted above May be increasing her sensitivity to allergy process Gastroparesis- Continue famotidine Anxiety- Continue fluoxetine Ativan IV as needed as noted Resident Activity Tracking Resident Involvement: Resident Care Provided Care Provided: Adult Hospital Medicine
[2023-12-12] MEDS: diphenhydrAMINE 50 MG/ML VIAL IV SCH (22:57)
[2023-12-12] MEDS ORDERED: LORazepam 1 MG/1 ML SYR ED Inj Use ONE (23:43)
[2023-12-12] MEDS: LORazepam 0.5 MG in SYRINGE 0.25 ML IV PRN (23:52)
[2023-12-13] MEDS: diphenhydrAMINE 50 MG/ML VIAL IV PRN ×6 (02:01→18:06)
[2023-12-13] MEDS: diphenhydrAMINE 50 MG/ML VIAL IV SCH ×5 (03:50→19:52)
[2023-12-13] MEDS: LACTATED RINGER'S 1,000 ML IV SCH ×2 (04:53→12:24)
[2023-12-13] MEDS ORDERED: ACETAMINOPHEN 1,000 MG/100 ML VIAL IV PRN (06:00)
[2023-12-13] MEDS: methylPREDNISolone 40 MG in SYRINGE 0 ML IV SCH ×2 (08:12→14:06)
[2023-12-13] MEDS: FLUTICASONE PROPIONATE NA SPR 16 GM BTL SCH (08:13)
[2023-12-13] MEDS: LORazepam 0.5 MG in SYRINGE 0.25 ML IV PRN ×2 (08:13→18:06)
[2023-12-13] MEDS: FAMOTIDINE 20 MG in SYRINGE 3 ML IV SCH ×2 (08:13→19:55)
[2023-12-13] MEDS ORDERED: LORazepam 0.5 MG TAB PO STA (09:11)
[2023-12-13] MEDS ORDERED: LORazepam 0.5 MG in SYRINGE 0.25 ML IV STA ×2 (09:32→11:57)
[2023-12-13] MEDS: EPINEPHrine INJ 1 MG/ML AMP IM PRN ×2 (11:53→14:11)
[2023-12-13] MEDS ORDERED: LORazepam 2 MG/1 ML VIAL ONE (12:00)
--- NOTE | 2023-12-13 12:53 | Allergy & Immunology Consult ---
Date of Consultation December 13, 2023 Assessment & Plan (1) Chronic idiopathic urticaria: (2) Angioedema: (3) Mast cell activation syndrome: (4) Allergic reaction: (5) Oral allergy syndrome: Plan Assessment Patient is a 18-year-old woman well-known to Allergy/Immunology with an underlying history of chronic spontaneous urticaria/angioedema, vocal cord dysfunction, multiple drug allergies, and multiple food allergy concerns. Although the patient continues on a regimen of Xolair (300mg qmonthly) for management of her mast cell mediated phenomena (reportedly last received about 1 week ago) in addition to cetirizine (20mg BID), famotidine (40mg BID), and h ydroxyzine (25mg at bedtime), she has recently gone on to develop several flares resulting in presentation to the emergency room (having been identified to have a COVID-19 infection, which could serve as an exacerbating factor of the patient's angioedema flare). The patient notes that she has recently eaten both avocado and almond, which also could have served as exacerbating causes of her symptoms (so it is reasonable to investigate for avocado/latex sensitization in this regard). Upon initial evaluation by Allergy/Immunology the patient was going through yet another flare of her symptoms (with tongue protrusion and rash of the abdomen, despite reassuring vital signs), for which she was ultimately treated with a combination of epinephrine and Benadryl. The patient's exam appeared largely stable/unchanged following management with traditional treatments for mast cell mediated urticaria/angioedema. As the patient's symptoms also seem to flare (but yet be predominantly localized to oropharyngeal symptoms) following the ingestion of certain fresh/raw plant based products, it is also possible that she could be experiencing a component of oral allergy syndrome (of note, Hospitalist team has already obtained [facility] aeroallergen serum IgE testing panel). Plan: -Continue supportive care/monitoring while inpatient -Obtain repeat tryptase levels within 2-3 hours of any episodes concerning for an allergic reaction (for which she might receive epinephrine, etc.) -Obtain avocado IgE and latex IgE in case of IgE mediated component contributing to the patient's symptoms (either add-on or with future lab draws) -Provided the patient with an informational handout regarding oral allergy syndrome -of note, Hospitalist team has already obtained [facility] aeroallergen serum IgE testing panel -Continue with chronic regimen the patient has otherwise been on upon discharge: -Xolair (300mg qmonthly) -cetirizine (20mg BID) -famotidine (40mg BID) -hydroxyzine (25mg at bedtime) -Patient to continue prednisone taper as previously prescribed by her primary Executive Office Manager History of Present Illness Reason for Consultation: idiopathic angioedema vs allergic reaction Attending Physician: Remberto Vaughan MD History of Present Illness Patient is a 18-year-old woman well-known to Allergy/Immunology with an underlying history of chronic spontaneous urticaria/angioedema, vocal cord dysfunction, multiple drug allergies, and multiple food allergy concerns. Although the patient continues on a regimen of Xolair (300mg qmonthly) for management of her mast cell mediated phenomena (reportedly last received about 1 week ago) in addition to cetirizine (20mg BID), famotidine (40mg BID), and hydroxyzine (25mg at bedtime), she has recently gone on to develop several flares resulting in presentation to the emergency room. With patient's first recent flare (on 12/11/23), she reportedly ate avocado and around 20 minutes later developed facial swelling and rash with subjective symptoms of "difficulty getting air in" prompting her to present to the emergency room (where she was found to test positive for COVID-19). She was ultimately able to be discharged from the emergency room yesterday, but after having dinner yesterday evening (followed by having cookies prepared with almond flour, which she has been identified to have IgE sensitization to) she reportedly went on to develop recurrence of itching and swelling (for which she again returned to the emergency room earlier today). Of note, repeat tryptase levels obtained in the setting of her recent flares have resulted normal and not significantly elevated from any baseline tryptase levels. She remains under inpatient monitoring due to concerns of persistence of a possible allergic reaction. Allergy/Immunology was subsequently consulted in case further management could be considered. Upon arrival at the patient's room, the patient had protrusion of her tongue and reported that she was having difficulty breathing making her concerned that she had another allergic reaction even though she had remained NPO upon arrival. She was repeatedly scratching at her abdomen, and there was evidence of blotchy redness (though there were no other apparent scattered urticarial lesions, wheezing/oxygen desaturation, vomiting, or paleness). Due to the patient's combination of skin and tongue involvement, 0.3mg epinephrine was administered along with 25mg Benadryl. The patient also requested a repeat dose of her PRN Ativan multiple times while in the room since she was voicing concerns that anxiety is playing a significant role in her symptoms. Allergies Allergy/AdvReac Type Severity Reaction Status Date / Time docusate [From Senna-S] Allergy Severe Hives, Verified 12/11/23 22:01 stridor plecanatide [From Trulance] Allergy Severe Anaphylaxis Verified 12/11/23 17:11 polyethylene glycol Allergy Severe Anaphylaxis Verified 12/11/23 17:11 [From Golytely] potassium chloride Allergy Severe Anaphylaxis Verified 12/11/23 17:11 [From Golytely] senna [From Senna-S] Allergy Severe Hives, Verified 12/11/23 22:01 stridor sodium [From Golytely] Allergy Severe Anaphylaxis Verified 12/11/23 17:11 sodium bicarbonate Allergy Severe Anaphylaxis Verified 12/11/23 17:11 [From Golytely] sodium chloride Allergy Severe Anaphylaxis Verified 12/11/23 17:11 [From Golytely] sodium sulfate Allergy Severe Anaphylaxis Verified 12/11/23 17:11 [From Golytely] adhesive Allergy Intermediate Hives Verified 12/11/23 22:01 latex Allergy Intermediate Rash Verified 12/11/23 17:11 oxycodone Allergy Intermediate hives/rash Verified 12/11/23 17:11 Penicillins Allergy Intermediate vomiting/ra Verified 12/11/23 17:11 sh polyethylene glycol 3350 Allergy Intermediate hives/itchi Verified 12/11/23 17:11 [From Miralax] ng Sulfa (Sulfonamide Allergy Intermediate Rash Verified 12/11/23 17:11 Antibiotics) sulfamethoxazole Allergy Intermediate Rash Verified 12/11/23 17:11 [From Sulfamethoxazole-Trimethoprim] tetrahydrozoline Allergy Intermediate Rash Verified 12/11/23 17:11 trimethoprim Allergy Intermediate Rash Verified 12/11/23 17:11 [From Sulfamethoxazole-Trimethoprim] zinc Allergy Intermediate Itching Verified 12/11/23 22:03 nickel Allergy Mild Rash Verified 12/11/23 17:11 aspirin AdvReac Severe gi bleed Verified 12/11/23 17:11 gluten AdvReac Severe celiac Verified 12/11/23 17:11 disease ibuprofen AdvReac Severe gi bleed Verified 12/11/23 17:11 NSAIDS (Non-Steroidal AdvReac Severe gi bleed Verified 12/11/23 17:11 Anti-Inflamma metoclopramide [From Reglan] AdvReac Intermediate muscle Verified 12/11/23 17:11 spasm clarithromycin [From Biaxin] AdvReac Unknown unsure Verified 12/11/23 17:11 ferric carboxymaltose AdvReac Unknown unsure Verified 12/11/23 17:11 Home Medications Medication Instructions Recorded Confirmed Type cetirizine 10 mg tablet 20 mg (2 x 10 mg) PO BID #60 tabs 12/19/22 12/12/23 Rx fluoxetine 20 mg capsule 20 mg PO DAILY 12/19/22 12/12/23 History lorazepam 0.5 mg tablet 0.5 mg PO DAILY PRN Anxiety 12/19/22 12/12/23 History ondansetron HCl 8 mg tablet 8 mg PO DAILY PRN Nausea 12/19/22 12/12/23 History rimegepant 75 mg disintegrating 75 mg PO Q OTHER DAY 02/26/23 12/12/23 History tablet (Nurtec ODT) hydroxyzine HCl 25 mg tablet 25 mg PO QID PRN hives 08/17/23 12/12/23 History epinephrine 0.3 mg/0.3 mL 0.3 mg (0.3 mL) IM Q4H PRN 08/20/23 12/12/23 Rx injection, auto-injector Anaphylaxis #2 ea famotidine 40 mg tablet 40 mg PO BID #180 tabs 08/20/23 12/12/23 Rx fluticasone propionate 50 2 spray intranasal DAILY #1 inh 08/20/23 12/12/23 Rx mcg/actuation nasal spray,suspension (Flonase Allergy Relief) levalbuterol tartrate 45 1 puff inhalation Q6H PRN Wheezing 08/20/23 12/12/23 Rx mcg/actuation aerosol inhaler #1 inhaler omalizumab 150 mg/mL subcutaneous 300 mg (2 mL) subcut .COMPLEX #4 mL 10/16/23 12/12/23 Rx syringe (Xolair) epinephrine 0.3 mg/0.3 mL 0.3 mg (0.3 mL) IM Q4H PRN 12/12/23 12/12/23 Rx injection, auto-injector (EpiPen) anaphylaxis #2 ea prednisone 10 mg tablet See Rx Instructions PO .COMPLEX 12/12/23 12/12/23 Rx #30 tabs Patient History Medical History (Updated 12/13/23 @ 12:48 by Thee Pathak MD) Oral allergy syndrome Angioedema Gastroparesis Migraine Anxiety 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 Social History Smoking Status: Never smoker Tobacco Type: Cigarettes Second Hand Exposure: No; Do You Dip or Chew Tobacco: No; Hx Alcohol Use: No Hx Substance Use: No Preferred Language: Italian Communication Ability: Effective Oracle Brm Developer Required: No Beliefs That Will Affect Care: None Current Living Situation: Other Current Living Situation Comment: college roommates Feels Safe at Home: Yes Assistive Devices: None Physical Exam Physical Exam: General: young woman resting in hospital bed with dysphonia from tongue protrusion, otherwise appropriate with answering questions, frequently notes her anxiety HEENT: NC/AT, MMM, tongue protruding without visible evidence of tongue angioedema although the lower jaw appears somewhat swollen, no conjunctival injection, no nasal discharge Neck: supple, FROM, no LAD Cardiac: normal S1 and S2, RRR, no M/R/G, brisk cap refill < 2 seconds Lungs: CTAB, no W/R/R, normal work of breathing Abdomen: normal BS, soft, NT/ND, no hepatosplenomegaly, no masses Extremities: 3+ pulses, no gross deformities, no cyanosis/edema Neuro: no focal deficits, appropriate muscle strength and tone Psych: appears anxious and frequently requests Ativan in the setting of her acute episode of swelling, otherwise appears to have normal mood and judgment Skin: blotchy redness of the abdomen, no rashes/lesions, clean/dry/intact Results & Data Vital Signs (Past 12 Hours) Vital Signs Temp Pulse Pulse Resp BP Pulse Ox O2 Del Method 12/13/23 12:00 91 H 20 99 Room Air 12/13/23 11:55 80 20 153/99 H 97 Room Air 12/13/23 07:57 36.3 C L 87 18 156/98 H 96 Room Air 12/13/23 07:27 75 12/13/23 03:12 85 12/13/23 02:42 Room Air 12/13/23 01:56 36.8 C 88 18 161/89 H 99 Room Air 12/13/23 01:47 Room Air 12/13/23 01:00 84 17 94 12/13/23 00:50 84 17 94 12/13/23 00:40 86 17 94 12/13/23 00:30 87 18 94 FiO2 12/13/23 12:00 21 12/13/23 11:55 12/13/23 07:57 12/13/23 07:27 12/13/23 03:12 12/13/23 02:42 12/13/23 01:56 12/13/23 01:47 12/13/23 01:00 12/13/23 00:50 12/13/23 00:40 12/13/23 00:30 [place] [address] INT INP/OBS CARE 3/75MIN Patient Type New History Comprehensive Exam Comprehensive Medical Decision Making High Complexity Diagnoses Chronic idiopathic urticaria L50.1 Angioedema T78.3XXA Mast cell activation syndrome D89.40 Allergic reaction T78.40XA Oral allergy syndrome T78.1XXA
[2023-12-13] MEDS ORDERED: diphenhydrAMINE 50 MG/ML VIAL IV STA ×2 (14:06→14:07)
[2023-12-13] MEDS ORDERED: EPINEPHrine INJ 1 MG/ML AMP IM STA (14:06)
[2023-12-13] MEDS ORDERED: EPINEPHrine ADULT AUTO-INJECT 0.3 MG SYR IM STA (14:06)
[2023-12-13] MEDS ORDERED: methylPREDNISolone 125 MG in SYRINGE 0 ML IV ONE (14:15)
[2023-12-13] MEDS: methylPREDNISolone 80 MG in SYRINGE 0 ML IV STA ×2 (15:26→15:48)
--- NOTE | 2023-12-13 16:06 | Hospitalist Progress Note ---
Date of Service December 13, 2023 Assessment & Plan (1) Allergic reaction: Plan: 17 yo female with PMHx of chronic idiopathic urticaria, mast cell activation syndrome, migraines, anxiety, and gastroparesis presents with allergic reaction. #Allergic reaction, ?Anaphylaxis #Chronic idiopathic urticaria #Mast cell activation syndrome She was just discharged from [facility] on the morning of 12/12 for similar symptoms. She went home and ate a diet containing almond flour, sesame seeds. She had another episode of anaphylaxis and thus presented back to the hospital. She was given Benadryl, Solu-Medrol, EpiPen. During this hospital stay, she has had 3 episodes of anaphylactic reaction requiring EpiPen 3 times with resolution of symptoms after treatment. Her blood pressure has been stable all throughout. Neurologist has seen the patient. Per petroleum products district supervisor recommendation, ordered tryptase level after this third episode. Consulted substitute teacher to consider epinephrine drip since the patient has required EpiPen 3 times since admission. Continue Solu-Medrol every 8, Benadryl every 4 Epinephrine 5 mg IM has been ordered to be used as needed Continue Xolair Hold home cetirizine while on Benadryl #COVID -diagnosed 12/10/23 with PCP - solumedrol as above - otherwise supportive care #Gastroparesis -cont. famotidine #Anxiety -cont. fluoxetine -ativan prn #Migraines -cont. Nurtec prn DVT ppx: ambulation FEN/GI: strict NPO during episodes of throat/tongue swelling Code Status: full Dispo: med tele (2) COVID-19: (3) Mast cell activation syndrome: (4) Anxiety: (5) Chronic idiopathic urticaria: (6) Migraine: (7) Gastroparesis: Admission and Anticipated Discharge Date Admission Date: December 12, 2023 Subjective Patient had a total of 3 episodes of anaphylaxis since admission. Required EpiPen 3 times. I initially saw her in the morning when she was in her usual state of health. She did state that she tried to drink water but vomited soon after. This was after the second episode. I saw her for second time during the third episode when she was complaining of tongue swelling, inability to swallow her own saliva, inability to take deep enough breath. She was starting to get anxious. She was given a third dose of EpiPen with 125 mg of Solu-Medrol and 50 mg of IV Benadryl. Review of Systems Review of Systems: All systems reviewed & are unremarkable except as noted in Subjective Physical Exam Physical Exam: General: Awake, able to communicate by typing on her phone. Tongue swelling noted. Her tongue has come out of her mouth cavity. Heart: S1, S2/regular rate and rhythm, no murmur rubs or gallops Lungs: Stridor noted. Abdomen: Soft/nontender/nondistended. No hepatosplenomegaly Extremities: No clubbing/cyanosis. No edema Behavior: Appropriate, cooperative Results & Data Results & Data Vital Signs (Past 12 Hours) Vital Signs Temp Pulse Pulse Resp BP Pulse Ox O2 Del Method 12/13/23 15:46 36.7 C 78 26 H 156/94 H 94 Room Air 12/13/23 12:00 91 H 20 99 Room Air 12/13/23 11:55 80 20 153/99 H 97 Room Air 12/13/23 07:57 36.3 C L 87 18 156/98 H 96 Room Air 12/13/23 07:27 75 FiO2 12/13/23 15:46 12/13/23 12:00 21 12/13/23 11:55 12/13/23 07:57 12/13/23 07:27 Laboratory Results Abnormal lab results 12/12/23 Range/Units 19:50 WBC 23.25 H D (4.8-10.8) K/ul Neut # (Auto) 18.41 H (1.40-6.50) K/uL Hall # (Auto) 2.24 H (0.11-0.59) K/uL BUN/Creatinine Ratio 22.9 H (10-20) Glucose 157 H (70-99(Fasting)) mg/dl PG Care Time/CCT Total # of Minutes Spent Total Time Spent with Patient: Total time spent is greater than 50% in coordination of care (as documented) at patient's floor/unit and/or counseling patient: Coding Level of Care Code 73939 SUB INP/OBS CARE 2/35MIN Diagnoses Allergic reaction T78.40XA COVID-19 U07.1 Mast cell activation syndrome D89.40 Anxiety F41.9 Chronic idiopathic urticaria L50.1 Migraine G43.909 Gastroparesis K31.84
[2023-12-13] MEDS: ONDANSETRON INJ 2 MG/ML 2 ML VIAL IV PRN (16:14)
[2023-12-13] MEDS: D5W AND NSS 1,000 ML IV SCH (16:55)
--- NOTE | 2023-12-13 17:33 | Critical Care Consultation ---
Date of Consultation December 13, 2023 Assessment & Plan (1) Angioedema: (2) Mast cell activation syndrome: (3) Anxiety: (4) Chronic idiopathic urticaria: Plan -- Angioedema with underlying chronic idiopathic urticaria --Vocal cord dysfunction This can give stridor as well Plan: Would recommend to continue with first generation antihistamine, Pepcid as well as Benadryl Can start titrating down Solu-Medrol in the near future as patient is getting restless and confused as per the mother When it comes to IM epi, would recommend 0.5 mg IM/SQ every 5-15 minutes as needed significant abdominal pain with tongue swelling. In cases of angioedema, FFP could also be thought of especially if it is DAVID inhibitor related. I am not sure if it will make any huge difference in this patient and would not be beneficial in acute case. Epinephrine drip is usually indicated for somebody who is in anaphylactic shock as it has significant side effects of arrhythmias. IM epi is not given need that frequently right now. Would recommend optimization of her anxiety medications as well. She has significant allergies to medications as well. On the long-term medications like Lexapro could be thought of on top of fluoxetine. Recommend to keep an eye on QTc as well given the patient is on a lot of QT prolonging medications which includes but not limited to diphenhydramine, fluoxetine. Given the high-dose Steroids, addition of PPI to Pepcid could be thought of. Patient is able to usually tolerate lansoprazole which is Prevacid. Case was discussed with cash applications clerk as well as primary team Critical care team will sign off, Please call directly with any questions or any worsening Please note the above document was generated using voice recognition software. It may contain grammatical, syntax or spelling errors.Any formal questions or concerns about the content, text or information contained within the body of this dictation should be directly addressed to the provider for clarification. History of Present Illness Attending Physician: Remberto Vaughan MD History of Present Illness 18-year-old female presented to the hospital with allergic reaction Past medical history: Severe anxiety, idiopathic urticaria on Xolair, following up with allergy, vocal cord dysfunction Patient got multiple IM epi, ICU was consulted to see whether IV drip will be needed Patient's current regimen is 40 mg of Solu-Medrol every 8, Benadryl 50 mg along with Pepcid. She did have an episode where she was given 80 mg of Solu-Medrol on top of 40 mg and epi Patient's mother was in the room at the time of examination She was on room air saturating 99%. She was anxious She denied any issues with breathing right now She was concerned that she might get an episode of rash as well as tongue swelling soon. Denies any abdominal pain, no diarrhea No fever or chills at home Allergies Allergy/AdvReac Type Severity Reaction Status Date / Time docusate [From Senna-S] Allergy Severe Hives, Verified 12/11/23 22:01 stridor plecanatide [From Trulance] Allergy Severe Anaphylaxis Verified 12/11/23 17:11 polyethylene glycol Allergy Severe Anaphylaxis Verified 12/11/23 17:11 [From Golytely] potassium chloride Allergy Severe Anaphylaxis Verified 12/11/23 17:11 [From Golytely] senna [From Senna-S] Allergy Severe Hives, Verified 12/11/23 22:01 stridor shellfish derived Allergy Severe Unknown Verified 12/13/23 15:21 sodium [From Golytely] Allergy Severe Anaphylaxis Verified 12/11/23 17:11 sodium bicarbonate Allergy Severe Anaphylaxis Verified 12/11/23 17:11 [From Golytely] sodium chloride Allergy Severe Anaphylaxis Verified 12/11/23 17:11 [From Golytely] sodium sulfate Allergy Severe Anaphylaxis Verified 12/11/23 17:11 [From Golytely] adhesive Allergy Intermediate Hives Verified 12/11/23 22:01 latex Allergy Intermediate Rash Verified 12/11/23 17:11 oxycodone Allergy Intermediate hives/rash Verified 12/11/23 17:11 Penicillins Allergy Intermediate vomiting/ra Verified 12/11/23 17:11 sh polyethylene glycol 3350 Allergy Intermediate hives/itchi Verified 12/11/23 17:11 [From Miralax] ng Sulfa (Sulfonamide Allergy Intermediate Rash Verified 12/11/23 17:11 Antibiotics) sulfamethoxazole Allergy Intermediate Rash Verified 12/11/23 17:11 [From Sulfamethoxazole-Trimethoprim] tetrahydrozoline Allergy Intermediate Rash Verified 12/11/23 17:11 trimethoprim Allergy Intermediate Rash Verified 12/11/23 17:11 [From Sulfamethoxazole-Trimethoprim] zinc Allergy Intermediate Itching Verified 12/11/23 22:03 nickel Allergy Mild Rash Verified 12/11/23 17:11 almond Allergy Unknown Unknown Verified 12/13/23 15:21 cashew nut Allergy Unknown Unknown Verified 12/13/23 15:21 clams Allergy Unknown Unknown Verified 12/13/23 15:21 crab Allergy Unknown Unknown Verified 12/13/23 15:21 egg Allergy Unknown Unknown Verified 12/13/23 15:21 hazelnut Allergy Unknown Unknown Verified 12/13/23 15:23 lobster Allergy Unknown Unknown Verified 12/13/23 15:23 scallops Allergy Unknown Unknown Verified 12/13/23 15:23 sesame seed Allergy Unknown Unknown Verified 12/13/23 15:23 shrimp Allergy Unknown Unknown Verified 12/13/23 15:23 soybean Allergy Unknown Unknown Verified 12/13/23 15:23 walnut Allergy Unknown Unknown Verified 12/13/23 15:23 aspirin AdvReac Severe gi bleed Verified 12/11/23 17:11 gluten AdvReac Severe celiac Verified 12/11/23 17:11 disease ibuprofen AdvReac Severe gi bleed Verified 12/11/23 17:11 NSAIDS (Non-Steroidal AdvReac Severe gi bleed Verified 12/11/23 17:11 Anti-Inflamma metoclopramide [From Reglan] AdvReac Intermediate muscle Verified 12/11/23 17:11 spasm avocado AdvReac Unknown Swelling Verified 12/13/23 15:25 of Lip/Tongue/Throat banana AdvReac Unknown Swelling Verified 12/13/23 15:25 of Lip/Tongue/Throat clarithromycin [From Biaxin] AdvReac Unknown unsure Verified 12/11/23 17:11 ferric carboxymaltose AdvReac Unknown unsure Verified 12/11/23 17:11 Home Medications Medication Instructions Recorded Confirmed Type cetirizine 10 mg tablet 20 mg (2 x 10 mg) PO BID #60 tabs 12/19/22 12/12/23 Rx fluoxetine 20 mg capsule 20 mg PO DAILY 12/19/22 12/12/23 History lorazepam 0.5 mg tablet 0.5 mg PO DAILY PRN Anxiety 12/19/22 12/12/23 History ondansetron HCl 8 mg tablet 8 mg PO DAILY PRN Nausea 12/19/22 12/12/23 History rimegepant 75 mg disintegrating 75 mg PO Q OTHER DAY 02/26/23 12/12/23 History tablet (Nurtec ODT) hydroxyzine HCl 25 mg tablet 25 mg PO QID PRN hives 08/17/23 12/12/23 History epinephrine 0.3 mg/0.3 mL 0.3 mg (0.3 mL) IM Q4H PRN 08/20/23 12/12/23 Rx injection, auto-injector Anaphylaxis #2 ea famotidine 40 mg tablet 40 mg PO BID #180 tabs 08/20/23 12/12/23 Rx fluticasone propionate 50 2 spray intranasal DAILY #1 inh 08/20/23 12/12/23 Rx mcg/actuation nasal spray,suspension (Flonase Allergy Relief) levalbuterol tartrate 45 1 puff inhalation Q6H PRN Wheezing 08/20/23 12/12/23 Rx mcg/actuation aerosol inhaler #1 inhaler omalizumab 150 mg/mL subcutaneous 300 mg (2 mL) subcut .COMPLEX #4 mL 10/16/23 12/12/23 Rx syringe (Xolair) epinephrine 0.3 mg/0.3 mL 0.3 mg (0.3 mL) IM Q4H PRN 12/12/23 12/12/23 Rx injection, auto-injector (EpiPen) anaphylaxis #2 ea prednisone 10 mg tablet See Rx Instructions PO .COMPLEX 12/12/23 12/12/23 Rx #30 tabs Patient History Medical History (Updated 12/13/23 @ 12:48 by Thee Pathak MD) Oral allergy syndrome Angioedema Gastroparesis Migraine Anxiety 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 Social History Smoking Status: Never smoker Tobacco Type: Cigarettes Second Hand Exposure: No; Do You Dip or Chew Tobacco: No; Hx Alcohol Use: No Hx Substance Use: No Preferred Language: Setswana Communication Ability: Effective 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 Beliefs That Will Affect Care: None Current Living Situation: Other Current Living Situation Comment: college roommates Feels Safe at Home: Yes Assistive Devices: None Review of Systems 2 Review of Systems: All systems reviewed & are unremarkable except as noted in HPI & below Physical Exam 2 Physical Exam: Constitutional: No acute distress HEENT: EOMI, pupils were dilated 6 mm, reactive to light, no tongue swelling, no stridor Respiratory system: Good air entry bilaterally, no wheeze, no rhonchi, no crackles CVS: S1-S2 positive, no murmurs or gallops Abdomen: Soft, nontender, nondistended, positive bowel sounds x4 Extremities: +2 pulses bilaterally radialis/ dorsalis pedis, no cyanosis, no edema Neuro: Awake alert oriented x3 Psych: Normal mood and affect G/U: No Bar Skin: no rashes, warm and dry Lymphatic: no cervical or axillary lymphadenopathy Results & Data Results & Data Vital Signs (Past 12 Hours) Vital Signs Temp Pulse Pulse Resp BP Pulse Ox O2 Del Method 12/13/23 15:46 36.7 C 78 26 H 156/94 H 94 Room Air 12/13/23 12:00 91 H 20 99 Room Air 12/13/23 11:55 80 20 153/99 H 97 Room Air 12/13/23 07:57 36.3 C L 87 18 156/98 H 96 Room Air 12/13/23 07:27 75 FiO2 12/13/23 15:46 12/13/23 12:00 21 12/13/23 11:55 12/13/23 07:57 12/13/23 07:27 Laboratory Results 12/12/23 19:50 12/12/23 19:50 Coding Level of Care Code 61849 IN/OBS CONSULT LVL 4,60M Diagnoses Angioedema T78.3XXA Mast cell activation syndrome D89.40 Anxiety F41.9 Chronic idiopathic urticaria L50.1
[2023-12-13] MEDS: FLUoxetine HCL 20 MG CAP PO SCH (19:55)
[2023-12-13] MEDS ORDERED: methylPREDNISolone 80 MG in SYRINGE 0 ML IV STA (21:07)
[2023-12-13] MEDS ORDERED: DOXEPIN HCL 10 MG CAPSULE PO STA (21:10)
[2023-12-13 22:04] LABS: Basophils # (auto) 0.01 K/uL (0.00-0.20); Basophils % (auto) 0.1 %; Hematocrit (blood only) 40.1 % (37.0-47.0); Hemoglobin 12.9 g/dl (12.0-16.0); Immature Granulocytes # (auto) 0.09 K/uL (0.01-0.20); Immature Granulocytes % (auto) 0.5 %; Lymphocytes # (auto) 1.67 K/uL (1.20-3.40); Lymphocytes % (auto) 9.4 %; Mean Corpuscular Hemoglobin 27.6 pg (25.0-34.0); Mean Corpuscular Hgb Conc 32.2 g/dL (32.0-36.0); Mean Corpuscular Volume 85.7 fL (80.0-100.0); Mean Platelet Volume 10.5 fL (9.4-12.4); Monocytes # (auto) 0.84 K/uL (0.11-0.59); Monocytes % (auto) 4.8 %; Neutrophils # (auto) 15.07 K/uL (1.40-6.50); Neutrophils % (auto) 85.2 %; Platelet Count 261 K/uL (130-400); RDW Coefficient of Variation 13.8 % (11.5-14.5); RDW Standard Deviation 42.6 fL (36.4-46.3); Red Blood Count 4.68 M/uL (4.20-5.40); White Blood Count 17.68 K/ul (4.8-10.8)
[2023-12-13] MEDS ORDERED: SODIUM CHLORIDE 0.9% 250 ML IV PRN (22:19)
--- NOTE | 2023-12-13 22:33 | Intensivist Progress Note ---
Date of Service December 13, 2023 Assessment & Plan (1) Respiratory arrest: Plan: Impression: 18-year-old female with extensive history of multiple drug and food allergies undergoing treatment for allergic reaction, following COVID-19 infection and suspicion for mast cell activation syndrome. Admitted to ICU for close monitoring following respiratory arrest and administration of IV epinephrine. Neuro - Anxietycontinue Ativan as needed, and scheduled Prozac Cardiac - Currently hemodynamically stable without use of vasopressors. EKG with normal sinus rhythm, QTc 450. Continuous monitoring on telemetry Respiratory - Respiratory arrestcurrently maintaining oxygen saturation on room air. Patient does have some tongue swelling/angioedema on exam but is able to swallow without difficulty and talk in full sentences without slurred speech. She did receive breaths with Ambu bag during respiratory arrest, but respiratory symptoms resolved following IV administration of epinephrine. -Administer IM epinephrine as needed. Patient has not needed follow-up administration of epinephrine following the 1 IV push. Will likely transition to epinephrine drip if this becomes an issue -Given p.o. doxepin -Continue IV Solu-Medrol -Continue H2 carlene -Patient and mother refused administration of FFP given patient, as patient has history of blood administration reaction -Benadryl currently on hold as patient has exceeded 24-hour max dose, and currently at risk for developing Benadryl toxicity. QTc was normal on EKG -Tryptase pending following respiratory event -Allergen panel pending -Monitor in ICU for further reaction for now. Continuous pulse ox monitoring. - Follow-up fur nailer recommendations GI - Continue famotidine, PPI NauseaZofran as needed RENAL/LYTES - Creatinine within normal limits, monitor routine BMPs and replete electrolytes as indicated Lactic acidosissuspect this is likely secondary to hypoxia from respiratory code. Currently trending down. Trend until normal - Strict I's and O's ENDO - No history of diabetes or thyroid disease. ICU hyperglycemic protocol HEME - Leukocytosis likely secondary to high-dose steroid use. H&H within normal l imits, monitor routine CBC ID - No indication for infectious process at this time LINES/IV ACCESS - Peripheral IVs DVT PROPHYLAXIS - SCDs I have personally spent 45 minutes of critical care time in the direct management of this patient. This is a life/limb threatening event. This includes time spent evaluating patient, direct bedside care, chart review, placing orders, interpretation of diagnostic studies, discussion with consultants, patient, and family members, as well as other required patient management activities. This time is exclusive of all separately billable procedures, and teaching time and separate from and in addition to any other critical care service time. Thank you for allowing us to participate in the care of this patient. Please refer to my attending physician's documentation for any further recommendations. (2) Anaphylaxis: (3) Angioedema: (4) COVID-19: (5) Mast cell activation syndrome: (6) Migraine: (7) Gastroparesis: Admission and Anticipated Discharge Date Admission Date: December 12, 2023 Subjective This evening patient developed respiratory arrest on the floor following progression of anaphylaxis and angioedema with tongue swelling. Per conversation with the patient's mother, patient became significantly anxious wit h respiratory distress. Code purple was initially called, and then CODE BLUE was called. Unfortunately patient was not on monitor at that time, but on my arrival to the room she was found to be unresponsive and did not appear to have any respiratory motion or effort. She did have a palpable pulse. She was given breaths with Ambu bag, and IV epinephrine was emergently administered. Patient awoke seconds after IV administration of epinephrine, and began breathing. She was placed on monitor and was noted to have normal vital signs. Following this event she is being moved to the ICU. She was given a dose of p.o. doxepin as recommended by allergy/immunology earlier today and she was given her scheduled IV Solu-Medrol as well. Did discuss administration of FFP, however the patient and mother were uncomfortable with blood product administration and refused, as she has had history of allergic reaction to blood in the past. Upon reevaluation, patient now complains of nausea and headache. She is alert and oriented and hemodynamically stable. She does describe some tickling in the back of her throat, and her tongue is noted to be edematous on exam. She is not having further anxiety at the moment, respiratory distress, stridor, and is able to swallow without difficulty and talk with complete sentences. Patient to remain in ICU for now for close monitoring following respiratory arrest anaphylactic shock. Physical Exam Constitutional: cooperative and comfortable Eyes: PERRL, conjunctivae normal, anicteric sclerae ENMT: external ear and nose normal, oropharynx normal Neck: trachea midline, no thyromegaly Respiratory: normal respiratory effort, lungs clear to auscultation Auscultation: no crackles, no rhonchi and no wheezes Cardiovascular: RRR, no murmur, no edema Heart Sounds: normal S1 and normal S2; no murmur Gastrointestinal (Abdomen): normal bowel sounds, soft, nontender, no hepatosplenomegaly Musculoskeletal: no cyanosis or clubbing, extremities motor strength 5/5 Neurologic: PERRL, EOMI, accommodation nl, no face palsy, no dysarthria Psychiatric: A+Ox3, euthymic affect Results & Data Results & Data Vital Signs (Past 12 Hours) Vital Signs Temp Pulse Pulse Resp BP Pulse Ox O2 Del Method 12/13/23 18:32 101 H 12/13/23 15:46 36.7 C 78 26 H 156/94 H 94 Room Air 12/13/23 12:00 91 H 20 99 Room Air 12/13/23 11:55 80 20 153/99 H 97 Room Air FiO2 12/13/23 18:32 12/13/23 15:46 12/13/23 12:00 21 12/13/23 11:55 PG Care Time/CCT Total # of Minutes Spent Total Time Spent with Patient: Total time spent is greater than 50% in coordination of care (as documented) at patient's floor/unit and/or counseling patient: Coding Level of Care Code 08746 CRITICAL CARE 1ST 30-74M Diagnoses Respiratory arrest R09.2 Anaphylaxis T78.2XXA Angioedema T78.3XXA COVID-19 U07.1 Mast cell activation syndrome D89.40 Migraine G43.909 Gastroparesis K31.84
[2023-12-13] MEDS ORDERED: DOXEPIN HCL 25 MG CAPSULE PO STA (22:52)
[2023-12-13 23:01] LABS: Alanine Aminotransferase 14 U/L (7-52); Albumin Globulin Ratio 1.6 (0.9-2); Albumin Level 4.2 gm/dl (3.4-5.0); Alkaline Phosphatase 50 U/L (34-104); Anion Gap 7 (3-11); Aspartate Aminotransferase 13 U/L (13-39); BUN Creatinine Ratio 21.8 (10-20); Bilirubin,Total 0.5 mg/dl (0.2-1.0); Blood Urea Nitrogen 12 mg/dl (6-23); Calcium 8.9 mg/dl (8.6-10.3); Carbon Dioxide 26 mmol/L (21-32); Chloride 106 mmol/L (98-107); Creatinine Clr Calc Pharmacy 172.7 ml/min; Est GFR (African American) > 150.0 ml/min; Globulin 2.6 gm/dl (2.5-4.0); Glucose 150 mg/dl (70-99(Fasting)); Potassium 3.7 mmol/L (3.5-5.1); Sodium 139 mmol/L (136-145); Total Protein 6.8 gm/dl (6.0-8.3)
[2023-12-14] MEDS: EPINEPHrine INJ 1 MG/ML AMP IM PRN (03:14)
[2023-12-14] MEDS: diphenhydrAMINE 50 MG/ML VIAL IV PRN (03:15)
[2023-12-14] MEDS ORDERED: STAT IV Infusion **Titration per Protocol STA ×3 (03:17→05:11)
[2023-12-14] MEDS ORDERED: EPINEPHrine INJ 1 MG/ML AMP IM STA ×2 (03:21→03:39)
[2023-12-14] MEDS ORDERED: EPINEPHrine/NSS 4 MG/254 ML BAG IV SCH (03:30)
[2023-12-14] MEDS ORDERED: PROPOFOL IV EMULSION 10 MG/ML 20 ML VIAL IV ONE ×2 (03:37→05:04)
[2023-12-14] MEDS ORDERED: BENZOCAINE/TETRACAIN/BUTAM 50 APPLN/5 GM CAN EXT ONE (03:37)
[2023-12-14] MEDS ORDERED: PROPOFOL IV EMULSION 10 MG/ML 100 ML VIAL IV ONE (04:23)
--- NOTE | 2023-12-14 05:00 | Anesthesiology Progress Note ---
Date of Service December 14, 2023 Assessment & Plan Admission and Anticipated Discharge Date Admission Date: December 12, 2023 Subjective Asked by ICU staff to secure airway in 18 yo female diagnosed w angioedema. On my arrival, tongue was swollen and protruding. Pt having difficulty speaking. Complained of tightness and pain in back of throat. There was inspiratory stridor. Pt has worsened despite epinephrine administration. I concurred that tracheal intubation was indicated at this time. Pt was medicated with lorazepam earlier. Propofol 200mg in divided doses was used during procedure. Topical anesthesia was applied to oropharynx with Cetcaine and 4% lidocaine. 7.0 ETT placed orally over bronchoscope into trachea. +BLBS, +ETCO2 detected. Propofol 200mg additional given after intubation. Pt left in care of SICU staff. Physical Exam Vital Signs: Last Vital Signs Temp 36.7 C 12/13/23 15:46 Pulse 66 12/13/23 23:45 Resp 18 12/13/23 23:45 BP 171/114 H 12/13/23 23:43 Pulse Ox 98 12/13/23 23:45 O2 Del Method Room Air 12/13/23 20:43 FiO2 21 12/13/23 12:00 Results & Data ([facility]) Medications Administered Diphenhydramine HCl (Diphenhydramine 50 Mg/Ml Vial) 25 mg IV Q6H PRN PRN Reason: Allergy Symptoms Stop: 01/12/24 01:29 Last Admin: 12/14/23 03:15 Dose: 25 mg Documented By: MCKENZIE Epinephrine HCl (Epinephrine Inj 1 Mg/Ml Amp) 0.5 mg IM Q4H PRN PRN Reason: anaphylaxis Stop: 01/11/24 22:44 Last Admin: 12/14/23 03:14 Dose: 0.5 mg Documented By: MCKENZIE Fluoxetine HCl (Fluoxetine Hcl 20 Mg Cap) 20 mg PO QPM NAVIN Stop: 01/12/24 20:59 Last Admin: 12/13/23 19:55 Dose: 20 mg Documented By: HJ Fluticasone Propionate (Fluticasone Propionate Na Spr 16 Gm Btl) 2 sprays NA DAILY NAVIN Stop: 01/12/24 08:59 Last Admin: 12/13/23 08:13 Dose: 2 sprays Documented By: CHARISSA Acetaminophen (Ofirmev) 1,000 mg in 100 mls @ 400 mls/hr IV Q8H PRN PRN Reason: Pain Stop: 12/16/23 05:59 Last Infusion: 12/13/23 22:48 Dose: Infused Documented By: Admin: 12/13/23 21:31 Dose: 400 mls/hr Documented By: RULA Lorazepam 0.5 mg/ Syringe 0.5 mls @ 2 mls/min IV Q8H PRN PRN Reason: Anxiety/Agitation Stop: 01/12/24 00:59 Last Admin: 12/13/23 18:06 Dose: 2 mls/min Documented By: Admin: 12/13/23 08:13 Dose: 2 mls/min Documented By: Admin: 12/12/23 23:52 Dose: 2 mls/min Documented By: ANAYELI Famotidine 20 mg/ Syringe 5 mls @ 2.5 mls/min IV BID NAVIN Stop: 01/12/24 08:59 Last Admin: 12/13/23 19:55 Dose: 2.5 mls/min Documented By: Admin: 12/13/23 08:13 Dose: 2.5 mls/min Documented By: CHARISSA Dextrose/Sodium Chloride (D5w And Nss) 1,000 mls @ 80 mls/hr IV .[id number] NAVIN Stop: 01/12/24 16:44 Last Admin: 12/13/23 16:55 Dose: 80 mls/hr Documented By: CHARISSA Miscellaneous (Order Awaiting Action: Rimegepant [Nurtec Odt] 75 Mg Tablet,Disintegrating) 1 each N/A QS NAVIN Stop: 01/12/24 00:00 Last Admin: 12/14/23 01:37 Dose: Not Given Documented By: Admin: 12/13/23 15:17 Dose: Not Given Documented By: Admin: 12/13/23 08:33 Dose: Not Given Documented By: Admin: 12/13/23 02:01 Dose: 1 each Documented By: LO Ondansetron HCl (Ondansetron Inj 2 Mg/Ml 2 Ml Vial) 4 mg IV Q6H PRN PRN Reason: Nausea Stop: 01/11/24 22:44 Last Admin: 12/13/23 16:14 Dose: 4 mg Documented By: CHARISSA
[2023-12-14] MEDS ORDERED: LIDOCAINE 4% MPF LOCAL INJ 5 ML AMP ONE (05:05)
--- NOTE | 2023-12-14 05:05 | Communication Note ---
Date of Service: December 14, 2023 This morning at approximately 0300, patient again had episode of anaphylactic reaction with angioedema/tongue swelling which was protruding from her mouth, and was preceded by hives and itching. This happened rapidly over the course of a few minutes, and she was given 0.5 mg IM injection of epinephrine. Initially, patient had some reduction and tongue swelling but was still unable to swallow or speak. Tongue swelling appeared to be worsening and she was given an additional dose of 0.5 mg IM epinephrine followed by an additional 0.5 mg IM dose for a total of 3 IM doses. Patient did not appear to be showing significant improvement, and anesthesia was called to the bedside. Patient was also started on IV epinephrine drip during this process. Due to patient's previous respiratory arrest this evening, and significance of angioedema with high risk of worsening respiratory compromise, decision was made to emergently intubate at the bedside. Patient was successfully intubated by anesthesia with 7.0 ET tube placed over bronchoscope. Patient now sedated with Versed and fentanyl drips. No significant hypoxia or hypercapnia on repeat ABG and chest x-ray showing correct placement of ET tube. Will continue with current management in ICU for now. Please note the above document was generated using voice recognition software. It may contain grammatical, syntax or spelling errors.Any formal questions or concerns about the content, text or information contained within the body of this dictation should be directly addressed to the provider for clarification. Coding Level of Care Code None
[2023-12-14] MEDS ORDERED: PROPOFOL BOLUS FROM BAG IV PRN (05:06)
[2023-12-14] MEDS ORDERED: fentaNYL citrate 2,500 MCG/250 ML BAG IV ONE (05:07)
[2023-12-14] MEDS ORDERED: propofoL 1,000 MG/100 ML VIAL IV SCH (05:15)
[2023-12-14] MEDS ORDERED: MIDAZOLAM HCL 125 MG/250 ML BAG IV SCH (05:15)
[2023-12-14] MEDS: fentaNYL citrate 2,500 MCG/250 ML BAG IV SCH ×2 (05:22→15:17)
[2023-12-14] MEDS: MIDAZOLAM BOLUS FROM BAG IV PRN ×2 (05:34→22:57)
--- NOTE | 2023-12-14 05:53 | Billing Data ---
Date of Service December 14, 2023 Coding Level of Care Code 70100 INT INP/OBS CARE
--- NOTE | 2023-12-14 07:15 | XRay Report ---
XR chest 1V portable CLINICAL HISTORY: Respiratory arrest. COMPARISON STUDY: Chest radiograph February 26, 2023. FINDINGS: Lung volumes are normal. Lungs are clear. There is no pneumothorax or pleural effusion. Car diac silhouette is prominent. Mediastinal contours are normal. There is no evidence for pulmonary toni ma. IMPRESSION: No acute cardiopulmonary findings. ACT 112: Negative or not required by law. Electronically signed by: González Wells M.D. 12/14/2023 7:13 AM
[2023-12-14] MEDS: FLUTICASONE PROPIONATE NA SPR 16 GM BTL SCH (07:21)
--- NOTE | 2023-12-14 07:51 | Critical Care Progress Note ---
Date of Service December 14, 2023 Assessment & Plan (1) Respiratory arrest: (2) Anaphylaxis: (3) Angioedema: (4) COVID-19: (5) Mast cell activation syndrome: (6) Migraine: (7) Gastroparesis: Plan Impression: 18-year-old female with extensive history of multiple drug and food allergies undergoing treatment for allergic reaction, following COVID-19 infection and suspicion for mast cell activation syndrome. Admitted to ICU for close monitoring following respiratory arrest and administration of IV epinephrine. Neuro - Anxiety On Prozac at home Cardiac - Currently hemodynamically stable without use of vasopressors. QTc 12/14/2023: 477 Respiratory - Respiratory arrest -Intubated early in the morning of 12/14/2023 for angioedema and respiratory compromise -Given p.o. doxepin -Continue IV Solu-Medrol, decrease days to 40 mg on a daily basis as patient got more than 220 mg on 12/13/2023. -Continue H2 carlene -Patient and mother refused administration of FFP given patient, as patient has history of blood administration reaction -Benadryl currently on hold as patient has exceeded 24-hour max dose, and currently at risk for developing Benadryl toxicity -Tryptase pending following respiratory event -Allergen panel pending - Follow-up school age teacher recommendations GI - Continue famotidine, PPI NauseaZofran as needed RENAL/LYTES - Monitor BUNs/creatinine Avoid nephrotoxic medication Lactic acidosissuspect this is likely secondary to hypoxia from respiratory code Continue to trend - Strict I's and O's ENDO - Continue with ICU hypoglycemia protocol HEME - Leukocytosis likely secondary to high-dose steroid use. H&H within normal limits, monitor routine CBC ID - No indication for infectious process at this time --Prophylaxis VTE: SCDs GI: Lansoprazole with famotidine Lines: Peripheral Diet: N.p.o. Plan: In/out: -249, urine output 1200 QTc from today is 477. Potassium is being replaced Will give 1 L of crystalloids I discussed the plan with the patient's school age teacher Dr. Ramirez His recommendation is to continue with long-acting antihistamine like doxepin, montelukast, decrease the dose of Solu-Medrol to equivalent of 40-50 mg of prednisone, continue with Pepcid, discontinue epinephrine Continue with intubation for total of 24 hours with trial of extubation tomorrow Probability of patient having hereditary or acquired angioedema is there. Treatment is usually with C1 inhibitor. I did order C4 as well as CH 50 levels but unfortunately it takes time for them to come back This information was relayed to patient's mother who was at bedside I have personally spent 48 minutes of critical care time in the direct management of this patient. This is a life/limb threatening event. This includes time spent evaluating patient, direct bedside care, chart review, placing orders, interpretation of diagnostic studies, discussion with consultants, patient, and family members, as well as other required patient management activities. This time is exclusive of all separately billable procedures, and teaching time and separate from and in addition to any other critical care service time. Thank you for allowing us to participate in the care of this patient. Please refer to my attending physician's documentation for any further recommendations. Admission and Anticipated Discharge Date Admission Date: December 12, 2023 Subjective Patient seen and examined at bedside. No acute distress, intubated early in the morning for bronchoscopy for angioedema She was on epinephrine 0.02 at the time of examination She was on 7 of midazolam and 50 of fentanyl She was RASS -2 Has been afebrile Systolic blood pressure was in the 140s, heart rate in the 80s Review of Systems Review of Systems: Unobtainable due to endotracheal tube Physical Exam Physical Exam: Constitutional: No acute distress HEENT: PERRLA, positive ETT, tongue seem to be normal in size Respiratory system: Good air entry bilaterally, no wheeze, no rhonchi, no crackles CVS: S1-S2 positive, no murmurs or gallops Abdomen: Soft, nontender, nondistended, positive bowel sounds x4 Extremities: +2 pulses bilaterally radialis/ dorsalis pedis, no cyanosis, no edema Neuro: Intubated, sedated, RASS -2 Psych: Unable to assess G/U: Positive Bar Skin: no rashes, warm and dry Lymphatic: no cervical or axillary lymphadenopathy Results & Data Results & Data Vital Signs (Past 12 Hours) Vital Signs Pulse Pulse Resp BP BP Pulse Ox O2 Del Method 12/14/23 06:17 12/14/23 05:58 92 H 21 98 12/14/23 04:41 91 H 18 100 12/14/23 04:41 144/74 H 12/14/23 04:40 93 H 18 99 12/14/23 04:40 141/62 H 12/14/23 04:37 89 18 99 12/14/23 04:37 136/68 12/14/23 04:35 89 18 99 12/14/23 04:35 134/72 12/14/23 04:31 137/76 12/14/23 04:31 93 H 18 98 12/14/23 04:30 94 H 15 98 12/14/23 04:30 95/77 L 12/14/23 04:25 151/81 H 12/14/23 04:25 102 H 21 99 12/14/23 04:21 88 17 99 12/14/23 04:21 138/85 12/14/23 04:17 103 H 21 98 12/14/23 04:17 141/86 H 12/14/23 04:15 132/70 12/14/23 04:15 110 H 12 99 12/14/23 04:13 125/74 12/14/23 04:13 109 H 16 94 12/14/23 04:11 127/66 12/14/23 04:11 112 H 15 100 12/14/23 04:09 154/84 H 12/14/23 04:09 103 H 21 100 12/14/23 04:07 103 H 14 100 12/14/23 04:07 142/86 H 12/14/23 04:05 106 H 15 100 12/14/23 04:05 145/83 H 12/14/23 04:03 150/74 H 12/14/23 04:03 109 H 16 100 12/14/23 04:01 102 H 18 100 12/14/23 04:01 156/86 H 12/14/23 04:00 110 H 18 100 12/14/23 04:00 126/87 12/14/23 03:58 106 H 18 100 12/14/23 03:58 156/74 H 12/14/23 03:56 125 H 15 99 12/14/23 03:56 164/96 H 12/14/23 03:53 127 H 27 H 100 12/14/23 03:53 141/72 H 12/14/23 03:51 124 H 22 100 12/14/23 03:51 135/100 12/14/23 03:49 130 H 24 100 12/14/23 03:49 161/124 H 12/14/23 03:47 134 H 23 100 12/14/23 03:47 166/97 H 12/14/23 03:45 141 H 22 100 12/14/23 03:45 136/99 12/14/23 03:43 138 H 27 H 100 12/14/23 03:43 148/107 H 12/14/23 03:30 103 H 19 100 12/14/23 03:15 106 H 16 100 12/14/23 03:13 152/98 H 12/14/23 03:13 92 H 17 100 12/14/23 03:00 106 H 17 100 12/14/23 02:58 168/107 H 12/14/23 02:58 99 H 17 100 12/14/23 02:45 77 24 99 12/14/23 02:44 83 21 99 12/14/23 02:44 136/96 12/13/23 23:45 66 18 98 12/13/23 23:43 171/114 H 12/13/23 23:43 63 19 99 12/13/23 23:30 66 16 94 12/13/23 23:15 69 21 98 12/13/23 23:13 137/96 12/13/23 23:13 81 14 100 12/13/23 23:00 71 15 99 12/13/23 22:45 69 19 97 12/13/23 22:30 89 19 98 12/13/23 22:16 133/85 12/13/23 22:16 85 14 95 12/13/23 22:15 82 13 99 12/13/23 22:14 150/83 H 12/13/23 22:14 84 26 H 97 12/13/23 22:09 95 12/13/23 21:00 100 Ambu-Bag, Free Flow/Blow-by 12/13/23 20:43 74 18 99 Room Air 12/13/23 19:50 90 18 150/88 H 99 Room Air O2 Flow Rate FiO2 12/14/23 06:17 30 12/14/23 05:58 40 12/14/23 04:41 12/14/23 04:41 12/14/23 04:40 12/14/23 04:40 12/14/23 04:37 12/14/23 04:37 12/14/23 04:35 12/14/23 04:35 12/14/23 04:31 12/14/23 04:31 12/14/23 04:30 12/14/23 04:30 12/14/23 04:25 12/14/23 04:25 12/14/23 04:21 12/14/23 04:21 12/14/23 04:17 12/14/23 04:17 12/14/23 04:15 12/14/23 04:15 12/14/23 04:13 12/14/23 04:13 12/14/23 04:11 12/14/23 04:11 12/14/23 04:09 12/14/23 04:09 12/14/23 04:07 12/14/23 04:07 12/14/23 04:05 12/14/23 04:05 12/14/23 04:03 12/14/23 04:03 12/14/23 04:01 12/14/23 04:01 12/14/23 04:00 12/14/23 04:00 12/14/23 03:58 12/14/23 03:58 12/14/23 03:56 12/14/23 03:56 12/14/23 03:53 12/14/23 03:53 12/14/23 03:51 12/14/23 03:51 12/14/23 03:49 12/14/23 03:49 12/14/23 03:47 12/14/23 03:47 12/14/23 03:45 12/14/23 03:45 12/14/23 03:43 12/14/23 03:43 12/14/23 03:30 12/14/23 03:15 12/14/23 03:13 12/14/23 03:13 12/14/23 03:00 12/14/23 02:58 12/14/23 02:58 12/14/23 02:45 12/14/23 02:44 12/14/23 02:44 12/13/23 23:45 12/13/23 23:43 12/13/23 23:43 12/13/23 23:30 12/13/23 23:15 12/13/23 23:13 12/13/23 23:13 12/13/23 23:00 12/13/23 22:45 12/13/23 22:30 12/13/23 22:16 12/13/23 22:16 12/13/23 22:15 12/13/23 22:14 12/13/23 22:14 12/13/23 22:09 12/13/23 21:00 15 12/13/23 20:43 12/13/23 19:50 Coding Level of Care Code 90803 CRITICAL CARE 1ST 30-74M Diagnoses Respiratory arrest R09.2 Anaphylaxis T78.2XXA Angioedema T78.3XXA COVID-19 U07.1 Mast cell activation syndrome D89.40 Migraine G43.909 Gastroparesis K31.84
[2023-12-14] MEDS ORDERED: LACTATED RINGER'S 500 ML IV ONE ×2 (08:11→10:15)
[2023-12-14] MEDS: FAMOTIDINE 20 MG in SYRINGE 3 ML IV SCH ×2 (08:15→20:32)
[2023-12-14] MEDS: D5W AND NSS 1,000 ML IV SCH (08:16)
--- NOTE | 2023-12-14 08:26 | XRay Report ---
XR chest 1V portable CLINICAL HISTORY: intubation TECHNIQUE: Single frontal radiograph of the chest was obtained. Comparison: Comparison is made to chest radiograph 12/13/2023 FINDINGS: Endotracheal tube terminates 4.1 cm from the joby. The cardiomediastinal silhouette is normal. Lung s are underinflated but clear. No evidence of pleural effusion or pneumothorax. IMPRESSION: Satisfactory position of endotracheal tube. ACT 112: Negative or not required by law. Electronically signed by: Ed Merchant M.D. 12/14/2023 8:25 AM
--- NOTE | 2023-12-14 08:29 | XRay Report ---
XR KUB/Abdomen 1 view CLINICAL HISTORY: og tube placement TECHNIQUE: 1 view of the abdomen was obtained. Comparison: None available at the time of this dictation. FINDINGS: Enteric tube terminates within the stomach with side-port seen. The osseous structures are grossly un remarkable. The bowel gas pattern is nonobstructive. A moderate amount of stool is noted within the l arge bowel. IMPRESSION: Satisfactory position of enteric tube. ACT 112: Negative or not required by law. Electronically signed by: Ed Merchant M.D. 12/14/2023 8:28 AM
[2023-12-14 08:33] LABS: Hematocrit (blood only) 36.6 % (37.0-47.0); Hemoglobin 11.9 g/dl (12.0-16.0); Mean Corpuscular Hemoglobin 27.5 pg (25.0-34.0); Mean Corpuscular Hgb Conc 32.5 g/dL (32.0-36.0); Mean Corpuscular Volume 84.7 fL (80.0-100.0); Mean Platelet Volume 9.6 fL (9.4-12.4); Platelet Count 318 K/uL (130-400); RDW Coefficient of Variation 13.7 % (11.5-14.5); RDW Standard Deviation 42.6 fL (36.4-46.3); Red Blood Count 4.32 M/uL (4.20-5.40); White Blood Count 26.11 K/ul (4.8-10.8)
[2023-12-14 08:48] LABS: Anion Gap 10 (3-11); BUN Creatinine Ratio 20.8 (10-20); Blood Urea Nitrogen 11 mg/dl (6-23); Calcium 8.9 mg/dl (8.6-10.3); Carbon Dioxide 24 mmol/L (21-32); Chloride 109 mmol/L (98-107); Creatinine Clr Calc Pharmacy 179.7 ml/min; Est GFR (African American) > 150.0 ml/min; Est GFR (Non-African American) 136.7 ml/min; Glucose 202 mg/dl (70-99(Fasting)); Magnesium 2.1 mg/dl (1.7-2.4); Phosphorus 2.5 mg/dl (2.5-4.9); Potassium 3.5 mmol/L (3.5-5.1); Sodium 143 mmol/L (136-145)
[2023-12-14] MEDS ORDERED: PANTOprazole 40 MG TAB PO SCH (09:00)
[2023-12-14 09:03] LABS: Basophils # (auto) 0.03 K/uL (0.00-0.20); Basophils % (auto) 0.1 %; Immature Granulocytes # (auto) 0.19 K/uL (0.01-0.20); Immature Granulocytes % (auto) 0.7 %; Lymphocytes # (auto) 1.46 K/uL (1.20-3.40); Lymphocytes % (auto) 5.6 %; Monocytes # (auto) 3.35 K/uL (0.11-0.59); Monocytes % (auto) 12.8 %; Neutrophils # (auto) 21.08 K/uL (1.40-6.50); Neutrophils % (auto) 80.8 %
[2023-12-14] MEDS: D5W AND 1/2NSS 1,000 ML IV SCH ×2 (10:42→22:54)
[2023-12-14] MEDS ORDERED: POTASSIUM CHLORIDE 20 MEQ/15 ML UDC PO ONE (11:00)
[2023-12-14] MEDS: LANSOPRAZOLE 30 MG SOLTAB NG SCH (11:13)
[2023-12-14] MEDS: methylPREDNISolone 40 MG in SYRINGE 0 ML IV SCH (13:14)
--- NOTE | 2023-12-14 15:43 | Hospitalist Progress Note ---
Date of Service December 14, 2023 Assessment & Plan (1) Allergic reaction: Plan: 17 yo female with PMHx of chronic idiopathic urticaria, mast cell activation syndrome, migraines, anxiety, and gastroparesis presents with allergic reaction. Angioedema Patient had been having episodes of tongue swelling, stridor, anxiety, inability to swallow saliva requiring several doses of EpiPen, steroids, Benadryl, Ativan in the last few days. She eventually got intubated for airway protection Was started on epi drip Currently she is in the ICU Of note, at no point did her blood pressure dropped I have been speaking with the solid surface fabricator and the senior systems administrator The plan is to keep her on the vent to make sure her airway is protected today. Epi drip is most likely not adding much as she is not hypotensive. The plan is to stop the epi drip. The plan is to also continue steroids and antihistamines She is now on Solu-Medrol 40 mg IV daily She is on Benadryl IV as needed. She also needs a long-acting antihistamine. The solid surface fabricator recommends Atarax but the mother states that it had caused her to have chest pain in the past. For now she is on doxepin. 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 famotidine #Anxiety -cont. fluoxetine -ativan prn #[facility] FEN/GI: Continue n.p.o. with IV fluids Code Status: full (2) COVID-19: (3) Mast cell activation syndrome: (4) Anxiety: (5) Chronic idiopathic urticaria: (6) Migraine: (7) Gastroparesis: Admission and Anticipated Discharge Date Admission Date: December 14, 2023 Subjective Overnight, patient needed to be intubated. She was transferred to the ICU and was started on a epinephrine drip. Patient remains intubated. Mother at the bedside. Review of Systems Review of Systems: Unobtainable due to endotracheal tube Physical Exam Physical Exam: General: Intubated, sedated Heart: S1, S2/regular rate and rhythm, no murmur rubs or gallops Lungs: Good air entry bilaterally Abdomen: Soft/nontender/nondistended. No hepatosplenomegaly Extremities: No clubbing/cyanosis. No edema Behavior: Unable to assess as she is intubated and sedated Results & Data Results & Data Vital Signs (Past 12 Hours) Vital Signs Temp Pulse Pulse Resp BP BP Pulse Ox 12/14/23 14:48 53 L 16 100 12/14/23 12:00 12/14/23 11:49 58 L 16 100 12/14/23 11:45 36.8 C 60 18 153/96 H 100 12/14/23 11:40 60 16 100 12/14/23 11:40 153/96 H 12/14/23 11:25 60 16 100 12/14/23 11:25 152/97 H 12/14/23 11:10 64 16 100 12/14/23 11:10 153/100 H 12/14/23 11:00 61 16 100 12/14/23 10:55 57 L 16 100 12/14/23 10:55 157/102 H 12/14/23 10:12 65 16 99 12/14/23 10:00 12/14/23 09:40 63 16 99 12/14/23 09:40 157/96 H 12/14/23 09:25 155/98 H 12/14/23 09:25 65 14 99 12/14/23 09:12 89 21 100 12/14/23 09:10 66 15 99 12/14/23 09:10 156/96 H 12/14/23 09:02 67 18 99 12/14/23 08:40 68 16 99 12/14/23 08:40 151/86 H 12/14/23 08:25 149/83 H 12/14/23 08:25 73 16 100 12/14/23 08:00 72 18 99 12/14/23 08:00 87 12/14/23 08:00 12/14/23 07:55 82 16 100 12/14/23 07:55 155/86 H 12/14/23 07:45 76 18 99 12/14/23 07:40 137/77 12/14/23 07:40 75 16 99 12/14/23 07:30 78 18 99 12/14/23 07:25 80 16 99 12/14/23 07:25 135/77 12/14/23 07:15 82 18 98 12/14/23 07:10 80 16 99 12/14/23 07:10 135/73 12/14/23 07:00 83 18 99 12/14/23 06:17 12/14/23 05:58 92 H 21 98 12/14/23 04:41 91 H 18 100 12/14/23 04:41 144/74 H 12/14/23 04:40 93 H 18 99 12/14/23 04:40 141/62 H 12/14/23 04:37 89 18 99 12/14/23 04:37 136/68 12/14/23 04:35 89 18 99 12/14/23 04:35 134/72 12/14/23 04:31 137/76 12/14/23 04:31 93 H 18 98 12/14/23 04:30 94 H 15 98 12/14/23 04:30 95/77 L 12/14/23 04:25 151/81 H 12/14/23 04:25 102 H 21 99 12/14/23 04:21 88 17 99 12/14/23 04:21 138/85 12/14/23 04:17 103 H 21 98 12/14/23 04:17 141/86 H 12/14/23 04:15 132/70 12/14/23 04:15 110 H 12 99 12/14/23 04:13 125/74 12/14/23 04:13 109 H 16 94 12/14/23 04:11 127/66 12/14/23 04:11 112 H 15 100 12/14/23 04:09 154/84 H 12/14/23 04:09 103 H 21 100 12/14/23 04:07 103 H 14 100 12/14/23 04:07 142/86 H 12/14/23 04:05 106 H 15 100 12/14/23 04:05 145/83 H 12/14/23 04:03 150/74 H 12/14/23 04:03 109 H 16 100 12/14/23 04:01 102 H 18 100 12/14/23 04:01 156/86 H 12/14/23 04:00 110 H 18 100 12/14/23 04:00 126/87 12/14/23 03:58 106 H 18 100 12/14/23 03:58 156/74 H 12/14/23 03:56 125 H 15 99 12/14/23 03:56 164/96 H 12/14/23 03:53 127 H 27 H 100 12/14/23 03:53 141/72 H 12/14/23 03:51 124 H 22 100 12/14/23 03:51 135/100 12/14/23 03:49 130 H 24 100 12/14/23 03:49 161/124 H 12/14/23 03:47 134 H 23 100 12/14/23 03:47 166/97 H 12/14/23 03:45 141 H 22 100 12/14/23 03:45 136/99 12/14/23 03:43 138 H 27 H 100 12/14/23 03:43 148/107 H O2 Del Method FiO2 12/14/23 14:48 21 12/14/23 12:00 21 12/14/23 11:49 21 12/14/23 11:45 Mechanical Vent 12/14/23 11:40 12/14/23 11:40 12/14/23 11:25 12/14/23 11:25 12/14/23 11:10 12/14/23 11:10 12/14/23 11:00 12/14/23 10:55 Mechanical Vent 12/14/23 10:55 12/14/23 10:12 12/14/23 10:00 Mechanical Vent 12/14/23 09:40 12/14/23 09:40 12/14/23 09:25 12/14/23 09:25 12/14/23 09:12 30 12/14/23 09:10 12/14/23 09:10 12/14/23 09:02 12/14/23 08:40 12/14/23 08:40 12/14/23 08:25 12/14/23 08:25 12/14/23 08:00 12/14/23 08:00 12/14/23 08:00 30 12/14/23 07:55 12/14/23 07:55 12/14/23 07:45 Mechanical Vent 12/14/23 07:40 12/14/23 07:40 12/14/23 07:30 12/14/23 07:25 12/14/23 07:25 12/14/23 07:15 12/14/23 07:10 12/14/23 07:10 12/14/23 07:00 12/14/23 06:17 30 12/14/23 05:58 40 12/14/23 04:41 12/14/23 04:41 12/14/23 04:40 12/14/23 04:40 12/14/23 04:37 12/14/23 04:37 12/14/23 04:35 12/14/23 04:35 12/14/23 04:31 12/14/23 04:31 12/14/23 04:30 12/14/23 04:30 12/14/23 04:25 12/14/23 04:25 12/14/23 04:21 12/14/23 04:21 12/14/23 04:17 12/14/23 04:17 12/14/23 04:15 12/14/23 04:15 12/14/23 04:13 12/14/23 04:13 12/14/23 04:11 12/14/23 04:11 12/14/23 04:09 12/14/23 04:09 12/14/23 04:07 12/14/23 04:07 12/14/23 04:05 12/14/23 04:05 12/14/23 04:03 12/14/23 04:03 12/14/23 04:01 12/14/23 04:01 12/14/23 04:00 12/14/23 04:00 12/14/23 03:58 12/14/23 03:58 12/14/23 03:56 12/14/23 03:56 12/14/23 03:53 12/14/23 03:53 12/14/23 03:51 12/14/23 03:51 12/14/23 03:49 12/14/23 03:49 12/14/23 03:47 12/14/23 03:47 12/14/23 03:45 12/14/23 03:45 12/14/23 03:43 12/14/23 03:43 Laboratory Results Chest X-Ray 12/13/23 21:28 XR chest 1V portable CLINICAL HISTORY: Respiratory arrest. COMPARISON STUDY: Chest radiograph February 26, 2023. FINDINGS: Lung volumes are normal. Lungs are clear. There is no pneumothorax or pleural effusion. Cardiac silhouette is prominent. Mediastinal contours are normal. There is no evidence for pulmonary edema. IMPRESSION: No acute cardiopulmonary findings. ACT 112: Negative or not required by law. Electronically signed by: González Wells M.D. 12/14/2023 7:13 AM Chest X-Ray 12/14/23 04:32 XR chest 1V portable CLINICAL HISTORY: intubation TECHNIQUE: Single frontal radiograph of the chest was obtained. Comparison: Comparison is made to chest radiograph 12/13/2023 FINDINGS: Endotracheal tube terminates 4.1 cm from the joby. The cardiomediastinal silhouette is normal. Lungs are underinflated but clear. No evidence of pleural effusion or pneumothorax. IMPRESSION: Satisfactory position of endotracheal tube. ACT 112: Negative or not required by law. Electronically signed by: Ed Merchant M.D. 12/14/2023 8:25 AM KUB X-Ray 12/14/23 04:50 XR KUB/Abdomen 1 view CLINICAL HISTORY: og tube placement TECHNIQUE: 1 view of the abdomen was obtained. Comparison: None available at the time of this dictation. FINDINGS: Enteric tube terminates within the stomach with side-port seen. The osseous structures are grossly unremarkable. The bowel gas pattern is nonobstructive. A moderate amount of stool is noted within the large bowel. IMPRESSION: Satisfactory position of enteric tube. ACT 112: Negative or not required by law. Electronically signed by: Ed Merchant M.D. 12/14/2023 8:28 AM PG Care Time/CCT Total # of Minutes Spent Total Time Spent with Patient: Total time spent is greater than 50% in coordination of care (as documented) at patient's floor/unit and/or counseling patient: Coding Level of Care Code 94646 SUB INP/OBS CARE 2/35MIN Diagnoses Allergic reaction T78.40XA COVID-19 U07.1 Mast cell activation syndrome D89.40 Anxiety F41.9 Chronic idiopathic urticaria L50.1 Migraine G43.909 Gastroparesis K31.84
[2023-12-14] MEDS: MONTELUKAST SOD 5 MG CHEWABLE TAB PO SCH (16:36)
[2023-12-14 17:08] LABS: Alternaria Class 0; Alternaria IgE <0.10 kU/L; Ash (White) Class 0; Ash (White) IgE <0.10 kU/L; Asperg Fumig Class 0; Asperg Fumig IgE <0.10 kU/L; Bermuda Grass Class 0; Bermuda Grass IgE <0.10 kU/L; Birch Class 0; Birch IgE <0.10 kU/L; Cat Dander Class 0; Cat Dander IgE <0.10 kU/L; Cladosporium IgE <0.10 kU/L; Cladosporium her Class 0; Cockroach Allergen Class 1; Cockroach IgE Ab 0.63 kU/L; Cottonwood Class 0; Cottonwood IgE <0.10 kU/L; D. farinae Class 1; D. farinae IgE 0.58 kU/L; D. pteronyssinus Class 1; Dog Dander Class 0; Dog Dander IgE <0.10 kU/L; Elm Class 0; Elm IgE <0.10 kU/L; Immunoglobulin IgE 176 kU/L (<OR=114); Maple (Box Elder) IgE <0.10 kU/L; Maple Class 0; Mountain Cedar Class 0; Mountain Cedar IgE <0.10 kU/L; Mouse Urine Protein Class 0; Mouse Urine Protein IgE <0.10 kU/L; Mugwort (W6) IgE <0.10 kU/L; Mugwort Class 0; Oak-White Class 0; Oak-White IgE <0.10 kU/L; Penic Notatum Class 0; Penic Notatum IgE <0.10 kU/L; Rough Pigweed Class 0; Rough Pigweed IgE <0.10 kU/L; Sheep Sorrel Class 0; Sheep Sorrel IgE <0.10 kU/L; Short Ragweed Class 0; Short Ragweed IgE <0.10 kU/L; Sycamore Class 0; Sycamore IgE <0.10 kU/L; Timothy Class 0; Timothy IgE <0.10 kU/L; Walnut Tree Class 0; Walnut Tree IgE <0.10 kU/L; White Mulberry Class 0; White Mulberry IgE <0.10 kU/L
--- NOTE | 2023-12-14 17:27 | Electrocardiogram Report ---
Test Reason : Blood Pressure : / mmHG Vent. Rate : 077 BPM Atrial Rate : 077 BPM P-R Int : 132 ms QRS Dur : 092 ms QT Int : 394 ms P-R-T Axes : 003 026 055 degrees QTc Int : 445 ms Poor data quality, interpretation may be adversely affected Normal sinus rhythm Possible Left atrial enlargement Nonspecific ST abnormality Abnormal ECG When compared with ECG of 11-DEC-2023 16:57, No significant change was found Confirmed by Favio Murray ([id number]) on 12/14/2023 5:26:51 PM Referred By: REFERRED SELF Confirmed By:Jorge Murray
--- NOTE | 2023-12-14 17:34 | Electrocardiogram Report ---
Test Reason : Blood Pressure : / mmHG Vent. Rate : 059 BPM Atrial Rate : 059 BPM P-R Int : 138 ms QRS Dur : 088 ms QT Int : 482 ms P-R-T Axes : 050 066 037 degrees QTc Int : 477 ms Sinus bradycardia Otherwise normal ECG When compared with ECG of 13-DEC-2023 21:53, (unconfirmed) Nonspecific T wave abnormality no longer evident in Lateral leads Confirmed by Favio Murray ([id number]) on 12/14/2023 5:34:07 PM Referred By: REFERRED SELF Confirmed By:Jorge Murray
--- NOTE | 2023-12-14 18:08 | XRay Report ---
XR chest 1V portable HISTORY: 18 years-old Female Wheezing acute respiratory failure COMPARISON: 12/14/2023 at 4:37 AM TECHNIQUE: AP view of the chest FINDINGS: Endotracheal tube overlies the midline, 4.6 cm superior to the joby. Enteric tube courses into the stomach with distal tip projected over the gastric body. Numerous telemetry leads are coiled over the chest. No pneumothorax, pleural effusion or airspace consolidation. The bones appear normal. IMPRESSION: 1. Endotracheal and enteric tube positioning as above. 2. The lungs are clear. 3. No pneumothorax. ACT 112: Negative or not required by law. The above report was generated using voice recognition software. It may contain grammatical, syntax o r spelling errors. Electronically signed by: Chavo Olsen M.D. 12/14/2023 6:06 PM
[2023-12-14] MEDS: DOXEPIN HCL 10 MG CAPSULE PO SCH (20:32)
[2023-12-14] MEDS: FLUoxetine HCL 20 MG CAP PO SCH (20:33)
[2023-12-14] MEDS ORDERED: DOXEPIN HCL 25 MG CAPSULE PO SCH (21:00)
[2023-12-14] MEDS: fentaNYL BOLUS from BAG IV PRN (22:57)
[2023-12-14] MEDS: ALBUTEROL 0.083% NEBU SOLN 3 ML VIAL NEB SCH (23:09)
[2023-12-15] MEDS: fentaNYL citrate 2,500 MCG/250 ML BAG IV SCH (01:02)
[2023-12-15] MEDS: fentaNYL BOLUS from BAG IV PRN ×2 (01:02→04:02)
[2023-12-15] MEDS: MIDAZOLAM BOLUS FROM BAG IV PRN ×2 (01:02→04:02)
[2023-12-15 04:34] LABS: Anion Gap 5 (3-11); BUN Creatinine Ratio 20.3 (10-20); Blood Urea Nitrogen 12 mg/dl (6-23); Calcium 8.8 mg/dl (8.6-10.3); Carbon Dioxide 26 mmol/L (21-32); Chloride 107 mmol/L (98-107); Creatinine Clr Calc Pharmacy 161.5 ml/min; Est GFR (African American) > 150.0 ml/min; Est GFR (Non-African American) 131.9 ml/min; Glucose 113 mg/dl (70-99(Fasting)); Magnesium 2.2 mg/dl (1.7-2.4); Phosphorus 2.9 mg/dl (2.5-4.9); Potassium 3.5 mmol/L (3.5-5.1); Sodium 138 mmol/L (136-145)
[2023-12-15 04:34] LABS: iSTAT Allen Test Pass; iSTAT Art Bld Gas pCO2 Correct 38 mmHg (35-46); iSTAT Art Bld Gas pH Corrected 7.434 (7.35-7.45); iSTAT Arterial Blood Gas HCO3 25 meg/L (19-24); iSTAT Arterial Blood Gas pCO2 37 mmHg (35-46); iSTAT Arterial Blood Gas pH 7.44 (7.35-7.45); iSTAT Arterial Blood Gas pO2 139 mmHg (80-95); iSTAT Arterial Blood Gas pO2 C 141; iSTAT Carbon Dioxide 26 mmol/L (24-31); iSTAT FiO2 30 %; iSTAT Hematocrit 32 % (37-47); iSTAT Hemoglobin 10.9 g/dl (12.0-16.0); iSTAT Potassium 3.5 mmol/L (3.3-5.0); iSTAT Site L Brachial; iSTAT Sodium 140 mmol/L (135-144)
[2023-12-15 04:57] LABS: Basophils # (auto) 0.01 K/uL (0.00-0.20); Basophils % (auto) 0.1 %; Hematocrit (blood only) 33.9 % (37.0-47.0); Hemoglobin 11.1 g/dl (12.0-16.0); Immature Granulocytes # (auto) 0.04 K/uL (0.01-0.20); Immature Granulocytes % (auto) 0.3 %; Lymphocytes # (auto) 2.95 K/uL (1.20-3.40); Lymphocytes % (auto) 25.4 %; Mean Corpuscular Hemoglobin 27.6 pg (25.0-34.0); Mean Corpuscular Hgb Conc 32.7 g/dL (32.0-36.0); Mean Corpuscular Volume 84.3 fL (80.0-100.0); Mean Platelet Volume 9.6 fL (9.4-12.4); Monocytes # (auto) 1.16 K/uL (0.11-0.59); Neutrophils # (auto) 7.45 K/uL (1.40-6.50); Neutrophils % (auto) 64.2 %; Platelet Count 249 K/uL (130-400); RDW Standard Deviation 43.4 fL (36.4-46.3); Red Blood Count 4.02 M/uL (4.20-5.40); White Blood Count 11.61 K/ul (4.8-10.8)
[2023-12-15] MEDS ORDERED: POTASSIUM CHLORIDE 20 MEQ/15 ML UDC NG STA (07:39)
--- NOTE | 2023-12-15 07:39 | Critical Care Progress Note ---
Date of Service December 15, 2023 Assessment & Plan (1) Respiratory arrest: (2) Anaphylaxis: (3) Angioedema: (4) COVID-19: (5) Mast cell activation syndrome: (6) Migraine: (7) Gastroparesis: Plan Impression: 18-year-old female with extensive history of multiple drug and food allergies undergoing treatment for allergic reaction, following COVID-19 infection and suspicion for mast cell activation syndrome. Admitted to ICU for close monitoring following respiratory arrest and administration of IV epinephrine. Neuro - Anxiety On Prozac at home Cardiac - Currently hemodynamically stable without use of vasopressors. QTc 12/14/2023: 477 Respiratory - Respiratory arrest -Intubated early in the morning of 12/14/2023 for angioedema and respiratory compromise -Given p.o. doxepin -Continue IV Solu-Medrol, decrease days to 40 mg on a daily basis as patient got more than 220 mg on 12/13/2023. -Continue H2 carlene -Patient and mother refused administration of FFP given patient, as patient has history of blood administration reaction -Benadryl As needed -Tryptase pending following respiratory event -Allergen panel pending - Follow-up event marketing assistant recommendations GI - Continue famotidine, PPI NauseaZofran as needed RENAL/LYTES - Monitor BUNs/creatinine Avoid nephrotoxic medication Lactic acidosissuspect this is likely secondary to hypoxia from respiratory code Continue to trend - Strict I's and O's ENDO - Continue with ICU hypoglycemia protocol HEME - Leukocytosis likely secondary to high-dose steroid use. H&H within normal limits, monitor routine CBC ID - No indication for infectious process at this time --Prophylaxis VTE: SCDs GI: Lansoprazole with famotidine Lines: Peripheral Diet: N.p.o. Plan: In/out: +54, urine output 2275 Chest x-ray from today does not show any significant cardiopulmonary abnormality Potassium will be replaced On physical exam there is no rash. Trial of extubation today. Probability of patient having hereditary or acquired angioedema is there. Treatment is usually with C1 inhibitor. I did order C4 as well as CH 50 levels but unfortunately it takes time for them to come back This information was relayed to patient's mother who was at bedside I have personally spent 38 minutes of critical care time in the direct management of this patient. This is a life/limb threatening event. This includes time spent evaluating patient, direct bedside care, chart review, placing orders, interpretation of diagnostic studies, discussion with consultants, patient, and family members, as well as other required patient management activities. This time is exclusive of all separately billable procedures, and teaching time and separate from and in addition to any other critical care service time. Thank you for allowing us to participate in the care of this patient. Please refer to my attending physician's documentation for any further recommendations. Admission and Anticipated Discharge Date Admission Date: December 14, 2023 Subjective Patient seen and examined at bedside. No acute distress, no new symptoms overnight Patient was saturating 99% on 30% FiO2, she was on 7 of midazolam and 50 of fentanyl She was RASS -1. Answering all the questions with nodding her head. Patient's mother was also in the room. Review of Systems 2 Review of Systems: All systems reviewed & are unremarkable except as noted in Subjective Physical Exam 2 Physical Exam: Constitutional: No acute distress HEENT: PERRLA, positive ETT, tongue seem to be normal in size Respiratory system: Good air entry bilaterally, no wheeze, no rhonchi, no crackles CVS: S1-S2 positive, no murmurs or gallops Abdomen: Soft, nontender, nondistended, positive bowel sounds x4 Extremities: +2 pulses bilaterally radialis/ dorsalis pedis, no cyanosis, no edema Neuro: Intubated, sedated, RASS -2 Psych: Unable to assess G/U: Positive Bar Skin: no rashes, warm and dry Lymphatic: no cervical or axillary lymphadenopathy Results & Data Results & Data Vital Signs (Past 12 Hours) Vital Signs Temp Pulse Resp BP Pulse Ox Pulse Ox O2 Del Method 12/15/23 06:15 56 L 16 98 12/15/23 06:10 56 L 16 98 12/15/23 06:10 119/57 L 12/15/23 06:00 37.3 C 55 L 16 98 12/15/23 05:45 54 L 16 98 12/15/23 05:30 55 L 16 98 12/15/23 05:15 54 L 16 98 12/15/23 05:10 55 L 16 98 12/15/23 05:10 119/67 12/15/23 05:00 55 L 16 99 12/15/23 04:45 51 L 16 100 12/15/23 04:30 53 L 16 99 01/27/24 04:15 48 L 17 100 12/15/23 04:10 37 L 16 99 12/15/23 04:10 119/68 12/15/23 04:10 53 L 16 98 12/15/23 04:00 52 L 16 98 12/15/23 04:00 12/15/23 03:45 53 L 16 99 12/15/23 03:30 52 L 16 98 12/15/23 03:15 52 L 16 99 12/15/23 03:10 55 L 16 98 12/15/23 03:10 117/61 12/15/23 03:00 52 L 16 99 12/15/23 02:45 57 L 16 98 12/15/23 02:30 54 L 16 98 12/15/23 02:15 54 L 16 98 12/15/23 02:10 54 L 16 99 12/15/23 02:10 115/63 12/15/23 02:00 55 L 16 99 12/15/23 01:45 59 L 16 98 12/15/23 01:30 67 16 100 12/15/23 01:15 16 100 12/15/23 01:00 37.3 C 67 16 99 12/15/23 00:45 80 17 100 12/15/23 00:30 67 16 98 12/15/23 00:15 68 16 98 12/15/23 00:10 68 16 98 12/15/23 00:10 101/44 L 12/15/23 00:01 53 L 12/15/23 00:00 70 16 97 12/15/23 00:00 12/14/23 23:45 68 16 97 12/14/23 23:30 68 16 97 12/14/23 23:15 58 L 16 98 12/14/23 23:10 51 L 16 98 12/14/23 23:10 115/63 12/14/23 23:10 51 L 16 99 12/14/23 23:00 53 L 16 98 12/14/23 22:45 54 L 16 98 12/14/23 22:30 55 L 16 98 12/14/23 22:15 52 L 16 98 12/14/23 22:10 55 L 16 98 12/14/23 22:10 116/60 12/14/23 22:00 53 L 16 98 12/14/23 22:00 98 12/14/23 21:55 112/59 L 12/14/23 21:55 54 L 16 98 12/14/23 21:45 56 L 16 98 12/14/23 21:40 52 L 16 98 12/14/23 21:40 116/61 12/14/23 21:30 57 L 16 98 12/14/23 21:25 114/62 12/14/23 21:25 55 L 16 98 12/14/23 21:15 58 L 16 98 12/14/23 21:10 118/61 12/14/23 21:10 55 L 16 98 12/14/23 21:00 55 L 16 98 12/14/23 20:55 120/64 12/14/23 20:55 53 L 16 99 12/14/23 20:54 58 L 16 99 12/14/23 20:45 58 L 16 98 12/14/23 20:40 57 L 16 98 12/14/23 20:40 115/59 L 12/14/23 20:30 54 L 16 98 12/14/23 20:25 58 L 16 98 12/14/23 20:25 116/64 12/14/23 20:15 56 L 16 99 12/14/23 20:10 57 L 16 98 12/14/23 20:10 37.3 C 115/63 12/14/23 20:00 59 L 16 98 12/14/23 20:00 Mechanical Vent 12/14/23 20:00 12/14/23 19:45 60 16 99 12/14/23 19:40 59 L 16 99 12/14/23 19:40 120/65 O2 Del Method FiO2 12/15/23 06:15 12/15/23 06:10 12/15/23 06:10 12/15/23 06:00 12/15/23 05:45 12/15/23 05:30 12/15/23 05:15 12/15/23 05:10 12/15/23 05:10 12/15/23 05:00 12/15/23 04:45 12/15/23 04:30 12/15/23 04:15 12/15/23 04:10 30 12/15/23 04:10 12/15/23 04:10 12/15/23 04:00 12/15/23 04:00 12/15/23 03:45 12/15/23 03:30 12/15/23 03:15 12/15/23 03:10 12/15/23 03:10 12/15/23 03:00 12/15/23 02:45 12/15/23 02:30 12/15/23 02:15 12/15/23 02:10 12/15/23 02:10 12/15/23 02:00 12/15/23 01:45 12/15/23 01:30 12/15/23 01:15 12/15/23 01:00 12/15/23 00:45 12/15/23 00:30 12/15/23 00:15 12/15/23 00:10 12/15/23 00:10 12/15/23 00:01 12/15/23 00:00 12/15/23 00:00 12/14/23 23:45 12/14/23 23:30 12/14/23 23:15 12/14/23 23:10 12/14/23 23:10 12/14/23 23:10 12/14/23 23:00 12/14/23 22:45 12/14/23 22:30 12/14/23 22:15 12/14/23 22:10 12/14/23 22:10 12/14/23 22:00 12/14/23 22:00 Mechanical Vent 12/14/23 21:55 12/14/23 21:55 12/14/23 21:45 12/14/23 21:40 12/14/23 21:40 12/14/23 21:30 12/14/23 21:25 12/14/23 21:25 12/14/23 21:15 12/14/23 21:10 12/14/23 21:10 12/14/23 21:00 12/14/23 20:55 12/14/23 20:55 12/14/23 20:54 30 12/14/23 20:45 12/14/23 20:40 12/14/23 20:40 12/14/23 20:30 12/14/23 20:25 12/14/23 20:25 12/14/23 20:15 12/14/23 20:10 12/14/23 20:10 12/14/23 20:00 12/14/23 20:00 30 12/14/23 20:00 30 12/14/23 19:45 12/14/23 19:40 12/14/23 19:40 Laboratory Results 12/15/23 03:47 12/15/23 03:47 Coding Level of Care Code 05217 CRITICAL CARE 1ST 30-74M Diagnoses Respiratory arrest R09.2 Anaphylaxis T78.2XXA Angioedema T78.3XXA COVID-19 U07.1 Mast cell activation syndrome D89.40 Migraine G43.909 Gastroparesis K31.84
[2023-12-15] MEDS: methylPREDNISolone 40 MG in SYRINGE 0 ML IV SCH ×2 (07:41→19:37)
[2023-12-15] MEDS: FLUTICASONE PROPIONATE NA SPR 16 GM BTL SCH ×2 (07:42→21:50)
[2023-12-15] MEDS: LANSOPRAZOLE 30 MG SOLTAB NG SCH (07:42)
[2023-12-15] MEDS: ENOXAPARIN INJ 40 MG/0.4 ML SYR SQ SCH ×2 (07:42→09:28)
[2023-12-15] MEDS ORDERED: POTASSIUM CHLORIDE 20 MEQ/15 ML UDC PO STA ×2 (07:45→07:49)
[2023-12-15] MEDS: FAMOTIDINE 20 MG in SYRINGE 3 ML IV SCH ×2 (07:45→21:14)
--- NOTE | 2023-12-15 07:52 | Electrocardiogram Report ---
Test Reason : Blood Pressure : / mmHG Vent. Rate : 065 BPM Atrial Rate : 065 BPM P-R Int : 128 ms QRS Dur : 090 ms QT Int : 456 ms P-R-T Axes : 068 077 041 degrees QTc Int : 474 ms Normal sinus rhythm Normal ECG When compared with ECG of 14-DEC-2023 10:57, No significant change was found Confirmed by Favio Murray ([id number]) on 12/15/2023 7:52:01 AM Referred By: REFERRED SELF Confirmed By:Jorge Murray
[2023-12-15] MEDS: ALBUTEROL 0.083% NEBU SOLN 3 ML VIAL NEB SCH (08:10)
[2023-12-15] MEDS ORDERED: MAGNESIUM HYDROXIDE SUSP 30 ML UDC PO PRN (11:54)
--- NOTE | 2023-12-15 12:47 | Hospitalist Progress Note ---
Date of Service December 15, 2023 Assessment & Plan (1) Allergic reaction: Plan: 17 yo female with PMHx of chronic idiopathic urticaria, mast cell activation syndrome, migraines, anxiety, and gastroparesis presents with allergic reaction. Angioedema Patient had been having episodes of tongue swelling, stridor, anxiety, inability to swallow saliva requiring several doses of EpiPen, steroids, Benadryl, Ativan in the last few days. She eventually got intubated for airway protection on 12/14, extubated 12/15 Was started on epi drip, now off of the drip Currently she is in the ICU I have been speaking with the metallurgical or materials technician and the water use inspector The plan is to also continue steroids and antihistamines She is now on Solu-Medrol 40 mg IV daily She is on Benadryl IV as needed. She also needs a long-acting antihistamine. The metallurgical or materials technician recommends Atarax but the mother states that it had caused her to have chest pain in the past. For now she is on doxepin. This is most likely not an anaphylactic reaction as she never dropped her blood pressure The patient has chronic idiopathic urticaria and mast cell activation syndrome School Laboratory Technician on board Inspector Plug Seam on board On PPI for GI protection since large doses of steroids have been used Continue H2 carlene Constipation Ordered milk of mag Colace and MiraLAX are marked as allergies #COVID -diagnosed 12/10/23 with PCP - solumedrol as above - otherwise supportive care The angioedema could be exacerbated by COVID infection #Gastroparesis -cont. famotidine #Anxiety -cont. fluoxetine -ativan prn #Migraines -Hold Nurte DVT ppx: Lovenox FEN/GI: Continue n.p.o. with IV fluids Code Status: full Continue to monitor in the ICU (2) COVID-19: (3) Mast cell activation syndrome: (4) Anxiety: (5) Chronic idiopathic urticaria: (6) Migraine: (7) Gastroparesis: Admission and Anticipated Discharge Date Admission Date: December 14, 2023 Subjective The patient got extubated this morning! Review of Systems Review of Systems: All systems reviewed & are unremarkable except as noted in Subjective Physical Exam Physical Exam: General: Sleeping, arousable. Looks anxious when she wakes up. Accompanied by her mother at the bedside. No tongue swelling Heart: S1, S2/regular rate and rhythm, no murmur rubs or gallops Lungs: Clear to auscultation bilaterally Abdomen: Soft/nontender/nondistended. No hepatosplenomegaly Extremities: No clubbing/cyanosis. No edema Behavior: Cooperative, appropriate Results & Data Results & Data Vital Signs (Past 12 Hours) Vital Signs Temp Pulse Pulse Resp BP BP Pulse Ox 12/15/23 11:00 36.7 C 69 18 143/80 H 93 12/15/23 09:16 56 L 12/15/23 09:16 12/15/23 09:15 100 H 13 98 12/15/23 09:00 98 H 7 L 97 12/15/23 08:45 110 H 9 L 98 12/15/23 08:30 102 H 17 98 12/15/23 08:15 92 H 22 100 12/15/23 08:10 62 14 98 12/15/23 08:10 124/56 L 12/15/23 08:05 54 L 20 96 12/15/23 08:00 55 L 16 96 12/15/23 07:45 56 L 16 95 12/15/23 07:30 63 19 97 12/15/23 07:15 54 L 16 99 12/15/23 06:15 56 L 16 98 12/15/23 06:10 56 L 16 98 12/15/23 06:10 119/57 L 12/15/23 06:00 37.3 C 55 L 16 98 12/15/23 05:45 54 L 16 98 12/15/23 05:30 55 L 16 98 12/15/23 05:15 54 L 16 98 12/15/23 05:10 55 L 16 98 12/15/23 05:10 119/67 12/15/23 05:00 55 L 16 99 12/15/23 04:45 51 L 16 100 12/15/23 04:30 53 L 16 99 12/15/23 04:15 48 L 17 100 12/15/23 04:10 37 L 16 99 12/15/23 04:10 119/68 12/15/23 04:10 53 L 16 98 12/15/23 04:00 52 L 16 98 12/15/23 04:00 12/15/23 03:45 53 L 16 99 12/15/23 03:30 52 L 16 98 12/15/23 03:15 52 L 16 99 12/15/23 03:10 55 L 16 98 12/15/23 03:10 117/61 12/15/23 03:00 52 L 16 99 12/15/23 02:45 57 L 16 98 12/15/23 02:30 54 L 16 98 12/15/23 02:15 54 L 16 98 12/15/23 02:10 54 L 16 99 12/15/23 02:10 115/63 12/15/23 02:00 55 L 16 99 12/15/23 01:45 59 L 16 98 12/15/23 01:30 67 16 100 12/15/23 01:15 16 100 12/15/23 01:00 37.3 C 67 16 99 O2 Del Method O2 Flow Rate FiO2 12/15/23 11:00 Room Air 12/15/23 09:16 12/15/23 09:16 Nasal Cannula 2 12/15/23 09:15 Nasal Cannula 2 12/15/23 09:00 12/15/23 08:45 12/15/23 08:30 12/15/23 08:15 12/15/23 08:10 12/15/23 08:10 12/15/23 08:05 12/15/23 08:00 Mechanical Vent 12/15/23 07:45 12/15/23 07:30 12/15/23 07:15 12/15/23 06:15 12/15/23 06:10 12/15/23 06:10 12/15/23 06:00 12/15/23 05:45 12/15/23 05:30 12/15/23 05:15 12/15/23 05:10 12/15/23 05:10 12/15/23 05:00 12/15/23 04:45 12/15/23 04:30 12/15/23 04:15 12/15/23 04:10 12/15/23 04:10 12/15/23 04:10 12/15/23 04:00 12/15/23 04:00 12/15/23 03:45 12/15/23 03:30 12/15/23 03:15 12/15/23 03:10 12/15/23 03:10 12/15/23 03:00 12/15/23 02:45 12/15/23 02:30 12/15/23 02:15 12/15/23 02:10 12/15/23 02:10 12/15/23 02:00 12/15/23 01:45 12/15/23 01:30 12/15/23 01:15 12/15/23 01:00 Laboratory Results Abnormal lab results 12/13/23 12/15/23 12/15/23 Range/Units 05:53 00:39 03:47 WBC 11.61 H D (4.8-10.8) K/ul RBC 4.02 L (4.20-5.40) M/uL Hgb 11.1 L (12.0-16.0) g/dl POC Hgb (12.0-16.0) g/dl Hct 33.9 L (37.0-47.0) % POC Hct (37-47) % Neut # (Auto) 7.45 H (1.40-6.50) K/uL Obion # (Auto) 1.16 H (0.11-0.59) K/uL POC pO2 (80-95) mmHg POC HCO3 (19-24) boby/L POC ABG O2 Sat (90-95) % Creatinine 0.59 L (0.6-1.2) mg/dl BUN/Creatinine Ratio 20.3 H (10-20) Glucose 113 H (70-99(Fasting)) mg/dl POC Glucose 123 H (70-99) mg/dl D. farinae Allrgen IgE 0.58 H kU/L D. pteronyssinus IgE 0.40 H kU/L Cockroach Allergen IgE 0.63 H kU/L IgE 176 H (<OM=956) kU/L 12/15/23 12/15/23 Range/Units 03:54 04:20 WBC (4.8-10.8) K/ul RBC (4.20-5.40) M/uL Hgb (12.0-16.0) g/dl POC Hgb 10.9 L (12.0-16.0) g/dl Hct (37.0-47.0) % POC Hct 32 L (37-47) % Neut # (Auto) (1.40-6.50) K/uL Obion # (Auto) (0.11-0.59) K/uL POC pO2 139 H (80-95) mmHg POC HCO3 25 H (19-24) boby/L POC ABG O2 Sat 99.0 H (90-95) % Creatinine (0.6-1.2) mg/dl BUN/Creatinine Ratio (10-20) Glucose (70-99(Fasting)) mg/dl POC Glucose 110 H (70-99) mg/dl D. farinae Allrgen IgE kU/L D. pteronyssinus IgE kU/L Cockroach Allergen IgE kU/L IgE (<AV=529) kU/L PG Care Time/CCT Total # of Minutes Spent Total Time Spent with Patient: Total time spent is greater than 50% in coordination of care (as documented) at patient's floor/unit and/or counseling patient: Coding Level of Care Code 02732 SUB INP/OBS CARE 2/35MIN Diagnoses Allergic reaction T78.40XA COVID-19 U07.1 Mast cell activation syndrome D89.40 Anxiety F41.9 Chronic idiopathic urticaria L50.1 Migraine G43.909 Gastroparesis K31.84
--- NOTE | 2023-12-15 13:14 | XRay Report ---
XR chest 1V portable CLINICAL HISTORY: Resp failure TECHNIQUE: Single frontal radiograph of the chest was obtained. Comparison: Comparison is made to chest radiograph 12/14/2023 FINDINGS: Lines and tubes are stable. The cardiomediastinal silhouette is normal. The lungs are clear. No evide nce of pleural effusion or pneumothorax. IMPRESSION: No acute abnormalities and in particular no radiographic evidence of pneumonia. Stable lines and tube s. ACT 112: Negative or not required by law. Electronically signed by: Ed Merchant M.D. 12/15/2023 1:13 PM
[2023-12-15] MEDS: ONDANSETRON INJ 2 MG/ML 2 ML VIAL IV PRN (13:37)
[2023-12-15] MEDS: diphenhydrAMINE 50 MG/ML VIAL IV PRN ×2 (13:41→19:09)
[2023-12-15] MEDS ORDERED: CETIRIZINE HCL 10 MG TABLET PO PRN (15:14)
[2023-12-15] MEDS ORDERED: CETIRIZINE HCL 10 MG TABLET PO ONE (15:15)
[2023-12-15] MEDS: MONTELUKAST SOD 5 MG CHEWABLE TAB PO SCH ×2 (15:17→17:20)
[2023-12-15] MEDS ORDERED: diphenhydrAMINE 50 MG/ML VIAL IV STA ×2 (15:22→19:09)
[2023-12-15] MEDS: ALBUTEROL 0.083% NEBU SOLN 3 ML VIAL NEB PRN (15:26)
[2023-12-15] MEDS ORDERED: methylPREDNISolone 40 MG in SYRINGE 0 ML IV ONE (15:45)
--- NOTE | 2023-12-15 16:28 | Communication Note ---
Date of Service: December 15, 2023 Critical care addendum: Was informed by RN that patient is forming rash and is having mild difficulty breathing. There was no tongue swelling initially. While I was putting in the orders, RN told me that some swelling of the tongue is noted. Patient was given 40 mg of Solu-Medrol IV, Benadryl 50 mg IV. It seems to be known anaphylactic angioedema mast cell versus bradykinin induced and I highly doubt a to have any response to epinephrine. Will try to hold back on epinephrine unless it gets worse. I also called and discussed the case with research computing specialist Dr. Ramirez. His recommendation was still to continue with Benadryl as needed along with long-acting doxepin nightly and montelukast. Unfortunately we do not have zafirlukast or zileuton in the pharmacy. I will increase patient's Solu-Medrol to 40 mg twice daily. Continue with lansoprazole Complement levels are not back yet. Tryptase levels are also pending If there is any worsening of angioedema like last time, will consider intubating again and keeping her intubated longer. FFP vs C1 inhibitor concentrate like icatibant can still be thought. Keep the patient n.p.o. for the time being. I have personally spent additional 39 minutes of critical care time in the direct management of this patient. This is a life/limb threatening event. This includes time spent evaluating patient, direct bedside care, chart review, placing orders, interpretation of diagnostic studies, discussion with consultants, patient, and family members, as well as other required patient management activities. This time is exclusive of all separately billable procedures, and teaching time and separate from and in addition to any other critical care service time. Please note the above document was generated using voice recognition software. It may contain grammatical, syntax or spelling errors. Coding Level of Care Code 79655 CRITICAL CARE EA ADD 30M
[2023-12-15] MEDS: EPINEPHrine INJ 1 MG/ML AMP IM PRN (19:09)
[2023-12-15] MEDS ORDERED: diphenhydrAMINE 50 MG/ML VIAL IV ONE (21:00)
[2023-12-15] MEDS: FLUoxetine HCL 20 MG CAP PO SCH (21:12)
[2023-12-15] MEDS: DOXEPIN HCL 10 MG CAPSULE PO SCH (21:13)
[2023-12-16] MEDS: diphenhydrAMINE 50 MG/ML VIAL IV SCH ×6 (00:16→20:23)
[2023-12-16] MEDS: diphenhydrAMINE 50 MG/ML VIAL IV PRN ×3 (00:47→21:25)
[2023-12-16 04:46] LABS: Hematocrit (blood only) 38.1 % (37.0-47.0); Hemoglobin 12.5 g/dl (12.0-16.0); Immature Granulocytes # (auto) 0.03 K/uL (0.01-0.20); Immature Granulocytes % (auto) 0.3 %; Lymphocytes # (auto) 1.16 K/uL (1.20-3.40); Lymphocytes % (auto) 10.8 %; Mean Corpuscular Hemoglobin 27.6 pg (25.0-34.0); Mean Corpuscular Hgb Conc 32.8 g/dL (32.0-36.0); Mean Corpuscular Volume 84.1 fL (80.0-100.0); Mean Platelet Volume 9.4 fL (9.4-12.4); Monocytes # (auto) 0.81 K/uL (0.11-0.59); Monocytes % (auto) 7.5 %; Neutrophils # (auto) 8.74 K/uL (1.40-6.50); Neutrophils % (auto) 81.4 %; Platelet Count 258 K/uL (130-400); RDW Coefficient of Variation 12.9 % (11.5-14.5); RDW Standard Deviation 39.6 fL (36.4-46.3); Red Blood Count 4.53 M/uL (4.20-5.40); White Blood Count 10.74 K/ul (4.8-10.8)
[2023-12-16 05:06] LABS: Anion Gap 5 (3-11); BUN Creatinine Ratio 28.6 (10-20); Blood Urea Nitrogen 14 mg/dl (6-23); Calcium 9.5 mg/dl (8.6-10.3); Carbon Dioxide 30 mmol/L (21-32); Chloride 101 mmol/L (98-107); Creatinine Clr Calc Pharmacy 184.5 ml/min; Est GFR (African American) > 150.0 ml/min; Est GFR (Non-African American) 140.3 ml/min; Glucose 128 mg/dl (70-99(Fasting)); Magnesium 2.4 mg/dl (1.7-2.4); Phosphorus 4.2 mg/dl (2.5-4.9); Sodium 136 mmol/L (136-145)
[2023-12-16] MEDS: ONDANSETRON INJ 2 MG/ML 2 ML VIAL IV PRN ×2 (06:21→21:20)
[2023-12-16] MEDS ORDERED: EX LAX EXT PRN (06:47)
[2023-12-16] MEDS ORDERED: diphenhydrAMINE 50 MG/ML VIAL IV STA (06:55)
[2023-12-16] MEDS: ENOXAPARIN INJ 40 MG/0.4 ML SYR SQ SCH (08:39)
[2023-12-16] MEDS: FLUTICASONE PROPIONATE NA SPR 16 GM BTL SCH (09:21)
[2023-12-16] MEDS: LANSOPRAZOLE 30 MG SOLTAB NG SCH (09:28)
[2023-12-16] MEDS: methylPREDNISolone 40 MG in SYRINGE 0 ML IV SCH ×2 (09:28→20:24)
[2023-12-16] MEDS: FAMOTIDINE 20 MG in SYRINGE 3 ML IV SCH ×2 (09:28→20:22)
[2023-12-16] MEDS ORDERED: Nursing to Pharmacy Communication SCH (10:00)
--- NOTE | 2023-12-16 10:04 | Electrocardiogram Report ---
Test Reason : Blood Pressure : / mmHG Vent. Rate : 060 BPM Atrial Rate : 060 BPM P-R Int : 144 ms QRS Dur : 084 ms QT Int : 458 ms P-R-T Axes : 067 076 031 degrees QTc Int : 458 ms Normal sinus rhythm Possible Left atrial enlargement Borderline ECG When compared with ECG of 15-DEC-2023 01:04, No significant change was found Confirmed by Asif Muñoz ([id number]) on 12/16/2023 10:04:26 AM Referred By: REFERRED SELF Confirmed By:Asif Muñoz
[2023-12-16] MEDS ORDERED: SENNA PO SCH (11:00)
--- NOTE | 2023-12-16 11:10 | Critical Care Progress Note ---
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 She was intubated earlier this admission due to concerns for airway protection, but quickly extubated. She has intermittent episodes of a protuberant tongue. This morning I evaluated her when she was complaining of tongue swelling. Her tongue did not appear to be actually swollen. Her tongue was sticking out from her mouth and she had some garbled speech. I was able to distract the patient and her speech intermittently does improve. The tongue is able to be retracted back into the mouth with a tongue depressor. Her airway does not appear edematous. Her lips do not appear edematous either. Unclear whether this is a true episode of angioedema or not. She is currently on high doses of cetirizine, IV Benadryl, Solu-Medrol, famotidine and leukotriene antagonist. I had several discussions this morning with her primary school teacher librarian over the phone, Dr. Ramirez. He does believe there is a significant anxiety component, but he also feels that she has true mast cell disease. For now we will continue monitoring the patient in the ICU for airway management if the need should arise for further airway intervention. Will hold on further doses of IM epinephrine currently. I am doubtful that patient has had true anaphylaxis. She has numerous drug allergies listed. She notes that she has an allergy to polyethylene glycol. I am also concerned the patient may have a degree of anticholinergic syndrome given the high doses of IV diphenhydramine, doxepin and cetirizine being utilized. Her pupils are dilated, her mood is labile and she is constipated which certainly could be symptoms of anticholinergic syndrome. Will have to monitor this closely. At this time, the metal pourer is strongly recommending continuing IV diphenhydramine given her overall syndrome. Will have speech evaluate the patient and if clear, can start a diet. Lastly she did test positive for COVID-19 this hospital admission. She does not have evidence of COVID viral pneumonia. The primary school teacher librarian is concerned that COVID may have triggered an immunologic response which in turn triggered her mast cell disorder. Admission and Anticipated Discharge Date Admission Date: December 14, 2023 Subjective Patient seen and examined. Mother is at bedside. Patient reportedly had increased redness of her face and tongue enlargement overnight. She received half a milligram of IM epinephrine. This morning she is complaining of tongue swelling and her tongue is protruding from her mouth. She is having some dysarthria. She is asking for more Benadryl. She denies any shortness of breath. She is anxious and notes that her throat is bit scratchy. I had several discussions with the patient, mother and Dr. Ramirez over the phone regarding her case. Her vital signs have remained completely stable and she is saturating in the mid to high 90s on room air. Review of Systems Review of Systems: All systems reviewed & are unremarkable except as noted in HPI & below Physical Exam Physical Exam: Constitutional: No acute distress HEENT: Pupils dilated, but reactive to light. Tongue was noted to be somewhat protuberant, but easily retracted back into her mouth with tongue depressor. I evaluated the posterior oropharynx. She has a Mallampati 2 airway. No lip swelling noted. No significant tongue swelling noted. Respiratory system: Good air entry bilaterally, no wheeze, no rhonchi, no crackles CVS: S1-S2 positive, no murmurs or gallops Abdomen: Soft, nontender, nondistended, positive bowel sounds x4 Extremities: +2 pulses bilaterally radialis/ dorsalis pedis, no cyanosis, no edema Neuro: Anxious, but nonfocal. Psych: Anxious. Alert and oriented x 3. Somewhat drowsy. Skin: no rashes, warm and dry Lymphatic: no cervical or axillary lymphadenopathy Results & Data Results & Data Vital Signs (Past 12 Hours) Vital Signs Temp Pulse Pulse Resp BP BP Pulse Ox 12/16/23 10:20 95 H 14 140/90 95 12/16/23 10:10 80 21 118/77 97 12/16/23 09:10 51 L 14 112/60 94 12/16/23 08:10 54 L 16 116/68 93 12/16/23 07:30 62 18 97 12/16/23 07:15 72 17 97 12/16/23 07:10 60 18 118/70 91 12/16/23 07:00 12/16/23 07:00 56 L 6 L 97 12/16/23 06:50 64 12 136/86 97 12/16/23 06:47 59 L 11 L 97 12/16/23 06:47 138/86 12/16/23 06:45 58 L 12 94 12/16/23 06:32 76 11 L 95 12/16/23 06:15 60 14 93 12/16/23 06:00 59 L 11 L 96 12/16/23 05:45 69 14 96 12/16/23 05:30 82 25 H 86 L 12/16/23 05:15 68 17 99 12/16/23 05:10 150/86 H 12/16/23 05:10 65 15 94 12/16/23 05:00 64 19 96 12/16/23 04:45 67 19 89 L 12/16/23 04:30 84 16 12/16/23 04:15 75 19 95 12/16/23 04:10 133/72 12/16/23 04:10 59 L 15 92 12/16/23 04:10 36.6 C 60 13 133/72 96 12/16/23 04:00 58 L 19 94 12/16/23 03:45 57 L 16 92 12/16/23 03:30 60 20 92 12/16/23 03:15 55 L 10 L 92 12/16/23 03:10 144/75 H 12/16/23 03:10 60 13 93 12/16/23 03:10 55 L 12 144/75 H 92 12/16/23 03:00 60 17 93 12/16/23 02:45 58 L 15 92 12/16/23 02:30 60 15 91 12/16/23 02:15 57 L 10 L 93 12/16/23 02:10 57 L 9 L 93 12/16/23 02:10 133/74 12/16/23 02:00 59 L 10 L 93 12/16/23 02:00 60 10 L 133/74 93 12/16/23 01:45 57 L 10 L 93 12/16/23 01:30 61 11 L 93 12/16/23 01:15 59 L 10 L 92 12/16/23 01:00 60 24 145/84 H 90 12/16/23 00:30 74 12 99 12/16/23 00:00 36.6 C 65 12 136/79 93 12/15/23 23:51 65 12/15/23 23:30 70 10 L 94 O2 Del Method 12/16/23 10:20 Room Air 12/16/23 10:10 Room Air 12/16/23 09:10 Room Air 12/16/23 08:10 Room Air 12/16/23 07:30 Room Air 12/16/23 07:15 Room Air 12/16/23 07:10 Room Air 12/16/23 07:00 Room Air 12/16/23 07:00 12/16/23 06:50 Room Air 12/16/23 06:47 12/16/23 06:47 12/16/23 06:45 12/16/23 06:32 12/16/23 06:15 12/16/23 06:00 12/16/23 05:45 12/16/23 05:30 12/16/23 05:15 12/16/23 05:10 12/16/23 05:10 12/16/23 05:00 12/16/23 04:45 12/16/23 04:30 12/16/23 04:15 12/16/23 04:10 12/16/23 04:10 12/16/23 04:10 Room Air 12/16/23 04:00 12/16/23 03:45 12/16/23 03:30 12/16/23 03:15 12/16/23 03:10 12/16/23 03:10 12/16/23 03:10 Room Air 12/16/23 03:00 12/16/23 02:45 12/16/23 02:30 12/16/23 02:15 12/16/23 02:10 12/16/23 02:10 12/16/23 02:00 12/16/23 02:00 Room Air 12/16/23 01:45 12/16/23 01:30 12/16/23 01:15 12/16/23 01:00 Room Air 12/16/23 00:30 12/16/23 00:00 Room Air 12/15/23 23:51 12/15/23 23:30 Coding Level of Care Code 54336 SUB INP/OBS CARE 3/50MIN Diagnoses COVID-19 U07.1 Mast cell activation syndrome D89.40 Migraine G43.909 Anxiety F41.9 Chronic idiopathic urticaria L50.1 Constipation K59.00 Adverse effect of anticholinergic T44.3X5A
--- NOTE | 2023-12-16 12:52 | Hospitalist Progress Note ---
Date of Service December 16, 2023 Assessment & Plan (1) Allergic reaction: Plan: 17 yo female with PMHx of chronic idiopathic urticaria, mast cell activation syndrome, migraines, anxiety, and gastroparesis presents with allergic reaction. Angioedema Not sure if this is true angioedema or anxiety related Patient had been having episodes of tongue swelling, stridor, anxiety, inability to swallow saliva requiring several doses of EpiPen, steroids, Benadryl, Ativan in the last few days. She eventually got intubated for airway protection on 12/14, extubated 12/15 Was started on epi drip, now off of the drip Currently she is in the ICU I have been speaking with the manganese wheeler and the switch engineer The plan is to also continue steroids and antihistamines She is now on Solu-Medrol 40 mg IV daily She is on Benadryl IV as needed. She also needs a long-acting antihistamine. The manganese wheeler recommends Atarax but the mother states that it had caused her to have chest pain in the past. For now she is on doxepin. 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 She was initially not able to put her tongue back into her mouth cavity. But when the gag reflex was checked, her tongue went back into the mouth cavity. That raises a question of whether this is a true tongue swelling and angioedema. Between yesterday and today, she did not require EpiPen. Constipation Ordered milk of mag Colace and MiraLAX are marked as allergies She is ordered senna #COVID -diagnosed 12/10/23 with PCP - solumedrol as above - otherwise supportive care The angioedema could be exacerbated by COVID infection #Gastroparesis -cont. famotidine #Anxiety -cont. fluoxetine -ativan prn #Migraines -Hold Nurtec DVT ppx: Lovenox Code Status: full Continue to monitor in the ICU (2) COVID-19: (3) Mast cell activation syndrome: (4) Anxiety: (5) Chronic idiopathic urticaria: (6) Migraine: (7) Gastroparesis: Admission and Anticipated Discharge Date Admission Date: December 14, 2023 Subjective Patient feels well at this time. She is browsing on the Internet. She had several episodes of "anaphylaxis" between yesterday and today where she would have a rash, and mild breathing difficulty with some tongue swelling leading to tongue protrusion as well. Solar Energy Systems Engineer did a gag test and her tongue went back in after the gag. Review of Systems Review of Systems: All systems reviewed & are unremarkable except as noted in Subjective Physical Exam Physical Exam: General: Awake, conversant Heart: S1, S2/regular rate and rhythm, no murmur rubs or gallops Lungs: Clear to auscultation bilaterally Abdomen: Soft/nontender/nondistended. No hepatosplenomegaly Extremities: No clubbing/cyanosis. No edema Behavior: Cooperative, appropriate Results & Data Results & Data Vital Signs (Past 12 Hours) Vital Signs Temp Pulse Pulse Resp BP BP Pulse Ox 12/16/23 11:13 58 L 16 137/84 98 12/16/23 11:13 36.5 C 12/16/23 10:20 95 H 14 140/90 95 12/16/23 10:10 80 21 118/77 97 12/16/23 09:10 51 L 14 112/60 94 12/16/23 08:10 54 L 16 116/68 93 12/16/23 07:30 62 18 97 12/16/23 07:15 72 17 97 12/16/23 07:10 60 18 118/70 91 12/16/23 07:00 12/16/23 07:00 56 L 6 L 97 12/16/23 06:50 64 12 136/86 97 12/16/23 06:47 59 L 11 L 97 12/16/23 06:47 138/86 12/16/23 06:45 58 L 12 94 12/16/23 06:32 76 11 L 95 12/16/23 06:15 60 14 93 12/16/23 06:00 59 L 11 L 96 12/16/23 05:45 69 14 96 12/16/23 05:30 82 25 H 86 L 12/16/23 05:15 68 17 99 12/16/23 05:10 150/86 H 12/16/23 05:10 65 15 94 12/16/23 05:00 64 19 96 12/16/23 04:45 67 19 89 L 12/16/23 04:30 84 16 12/16/23 04:15 75 19 95 12/16/23 04:10 133/72 12/16/23 04:10 59 L 15 92 12/16/23 04:10 36.6 C 60 13 133/72 96 12/16/23 04:00 58 L 19 94 12/16/23 03:45 57 L 16 92 12/16/23 03:30 60 20 92 12/16/23 03:15 55 L 10 L 92 12/16/23 03:10 144/75 H 12/16/23 03:10 60 13 93 12/16/23 03:10 55 L 12 144/75 H 92 12/16/23 03:00 60 17 93 12/16/23 02:45 58 L 15 92 12/16/23 02:30 60 15 91 12/16/23 02:15 57 L 10 L 93 12/16/23 02:10 57 L 9 L 93 12/16/23 02:10 133/74 12/16/23 02:00 59 L 10 L 93 12/16/23 02:00 60 10 L 133/74 93 12/16/23 01:45 57 L 10 L 93 12/16/23 01:30 61 11 L 93 12/16/23 01:15 59 L 10 L 92 12/16/23 01:00 60 24 145/84 H 90 O2 Del Method 12/16/23 11:13 Room Air 12/16/23 11:13 12/16/23 10:20 Room Air 12/16/23 10:10 Room Air 12/16/23 09:10 Room Air 12/16/23 08:10 Room Air 12/16/23 07:30 Room Air 12/16/23 07:15 Room Air 12/16/23 07:10 Room Air 12/16/23 07:00 Room Air 12/16/23 07:00 12/16/23 06:50 Room Air 12/16/23 06:47 12/16/23 06:47 12/16/23 06:45 12/16/23 06:32 12/16/23 06:15 12/16/23 06:00 12/16/23 05:45 12/16/23 05:30 12/16/23 05:15 12/16/23 05:10 12/16/23 05:10 12/16/23 05:00 12/16/23 04:45 12/16/23 04:30 12/16/23 04:15 12/16/23 04:10 12/16/23 04:10 12/16/23 04:10 Room Air 12/16/23 04:00 12/16/23 03:45 12/16/23 03:30 12/16/23 03:15 12/16/23 03:10 12/16/23 03:10 12/16/23 03:10 Room Air 12/16/23 03:00 12/16/23 02:45 12/16/23 02:30 12/16/23 02:15 12/16/23 02:10 12/16/23 02:10 12/16/23 02:00 12/16/23 02:00 Room Air 12/16/23 01:45 12/16/23 01:30 12/16/23 01:15 12/16/23 01:00 Room Air Laboratory Results Abnormal lab results 12/16/23 12/16/23 Range/Units 00:23 04:17 Neut # (Auto) 8.74 H (1.40-6.50) K/uL Lymph # (Auto) 1.16 L (1.20-3.40) K/uL [place] # (Auto) 0.81 H (0.11-0.59) K/uL Creatinine 0.49 L (0.6-1.2) mg/dl BUN/Creatinine Ratio 28.6 H (10-20) Glucose 128 H (70-99(Fasting)) mg/dl POC Glucose 134 H (70-99) mg/dl PG Care Time/CCT Total # of Minutes Spent Total Time Spent with Patient: Total time spent is greater than 50% in coordination of care (as documented) at patient's floor/unit and/or counseling patient: Coding Level of Care Code 88968 SUB INP/OBS CARE 2/35MIN Diagnoses Allergic reaction T78.40XA COVID-19 U07.1 Mast cell activation syndrome D89.40 Anxiety F41.9 Chronic idiopathic urticaria L50.1 Migraine G43.909 Gastroparesis K31.84
[2023-12-16] MEDS ORDERED: LORazepam 0.25 MG in SYRINGE 0.125 ML IV STA ×2 (13:50→21:14)
[2023-12-16] MEDS ORDERED: SODIUM CHLORIDE 0.9% 1,000 ML IV SCH (14:15)
[2023-12-16] MEDS: MONTELUKAST SOD 5 MG CHEWABLE TAB PO SCH (16:54)
[2023-12-16] MEDS: SENNA PO SCH (17:11)
[2023-12-16] MEDS: FLUoxetine HCL 20 MG CAP PO SCH (20:22)
[2023-12-16] MEDS: CETIRIZINE HCL 10 MG TABLET PO SCH (20:22)
[2023-12-16] MEDS: DOXEPIN HCL 10 MG CAPSULE PO SCH (20:23)
[2023-12-16] MEDS: ALBUTEROL 0.083% NEBU SOLN 3 ML VIAL NEB PRN (21:16)
[2023-12-17] MEDS: diphenhydrAMINE 50 MG/ML VIAL IV SCH ×6 (01:17→20:35)
[2023-12-17] MEDS: diphenhydrAMINE 50 MG/ML VIAL IV PRN ×4 (03:22→21:44)
[2023-12-17 05:24] LABS: Basophils # (auto) 0.02 K/uL (0.00-0.20); Basophils % (auto) 0.2 %; Hematocrit (blood only) 39.3 % (37.0-47.0); Hemoglobin 12.9 g/dl (12.0-16.0); Immature Granulocytes # (auto) 0.07 K/uL (0.01-0.20); Immature Granulocytes % (auto) 0.6 %; Lymphocytes % (auto) 11.3 %; Mean Corpuscular Hemoglobin 27.3 pg (25.0-34.0); Mean Corpuscular Hgb Conc 32.8 g/dL (32.0-36.0); Mean Corpuscular Volume 83.3 fL (80.0-100.0); Mean Platelet Volume 9.5 fL (9.4-12.4); Neutrophils # (auto) 9.32 K/uL (1.40-6.50); Neutrophils % (auto) 80.9 %; Platelet Count 267 K/uL (130-400); RDW Coefficient of Variation 12.5 % (11.5-14.5); RDW Standard Deviation 38.1 fL (36.4-46.3); Red Blood Count 4.72 M/uL (4.20-5.40); White Blood Count 11.51 K/ul (4.8-10.8)
[2023-12-17 05:37] LABS: Anion Gap 6 (3-11); BUN Creatinine Ratio 43.8 (10-20); Blood Urea Nitrogen 21 mg/dl (6-23); Calcium 9.1 mg/dl (8.6-10.3); Carbon Dioxide 28 mmol/L (21-32); Chloride 101 mmol/L (98-107); Creatinine Clr Calc Pharmacy 188.3 ml/min; Est GFR (African American) > 150.0 ml/min; Est GFR (Non-African American) 141.2 ml/min; Glucose 126 mg/dl (70-99(Fasting)); Magnesium 2.2 mg/dl (1.7-2.4); Phosphorus 4.2 mg/dl (2.5-4.9); Sodium 135 mmol/L (136-145)
[2023-12-17] MEDS: ENOXAPARIN INJ 40 MG/0.4 ML SYR SQ SCH (08:00)
[2023-12-17] MEDS: CETIRIZINE HCL 10 MG TABLET PO SCH ×2 (08:00→20:36)
[2023-12-17] MEDS: LANSOPRAZOLE 30 MG SOLTAB NG SCH (08:00)
[2023-12-17] MEDS: methylPREDNISolone 40 MG in SYRINGE 0 ML IV SCH ×2 (08:01→20:34)
[2023-12-17] MEDS: FAMOTIDINE 20 MG in SYRINGE 3 ML IV SCH ×2 (08:01→20:37)
[2023-12-17] MEDS: FLUTICASONE PROPIONATE NA SPR 16 GM BTL SCH (08:01)
--- NOTE | 2023-12-17 08:17 | Critical Care Progress Note ---
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 She has been intubated due to significant tongue swelling and angioedema but currently appears to be doing well on her current regiment of Benadryl Solu- Medrol cetirizine and Singulair. Recommendations: 1. Angioedema: Appears currently resolved and controlled on the current medical regiment. Long-term management per allergy immunology. Airway is normal currently with no signs of impending compromise. I think the patient's critical care issues are resolved at this point in time and she can be transferred out of the intensive care unit. Critical care services will sign off. 2. Constipation: The patient wants to continue her Ex-Lax. We discussed potentially trying lactulose but she would like to see how she does for now. Continue Zofran for nausea. 3. Was recommended that the patient get out of bed to chair and ambulate is much as possible. 4. Will advance diet as tolerated. 5. COVID: The patient is asymptomatic. No indication for additional steroids although the patient is already receiving Solu-Medrol which would be adequate coverage. Will defer tapering to allergy immunology The patient's critical care issues have currently resolved. Critical care will sign off. Management per hospitalist. Discussed with patient and mother at bedside. Discussed on multidisciplinary rounds. Reviewed with hospitalist and logging specialist. Admission and Anticipated Discharge Date Admission Date: December 14, 2023 Subjective Patient seen and examined. MR reviewed. Discussed with patient and mother at bedside as well as critical care nurse at bedside and on multidisciplinary rounds. Patient is doing better. Her biggest complaints currently are constipation. She wants a diet. She did take Ex-Lax this morning she states she has not had a bowel movement in several days. She is not complaining of any significant throat or mouth itching. Her voice appears normal. No wheezing. She has been hemodynamically stable. She did require 1 extra dose of Benadryl last night. Review of Systems Review of Systems: All systems reviewed & are unremarkable except as noted in Subjective Physical Exam Constitutional: WD/WN, vitals as above Neck: trachea midline, no thyromegaly Respiratory: normal respiratory effort, lungs clear to auscultation Cardiovascular: RRR, no murmur, no edema Gastrointestinal (Abdomen): normal bowel sounds, soft, nontender, no hepatosplenomegaly Musculoskeletal: Extremities: extremities normal to inspection Skin: no rashes, warm and dry Neurologic: Nonfocal exam Lymphatic: no cervical lymphadenopathy Results & Data Results & Data Vital Signs (Past 12 Hours) Vital Signs Temp Pulse Resp BP Pulse Ox Pulse Ox O2 Del Method 12/17/23 07:48 Room Air 12/17/23 07:10 107/61 12/17/23 07:00 51 L 12 97 Room Air 12/17/23 06:00 56 L 10 L 94 12/17/23 05:45 55 L 12 94 12/17/23 05:30 54 L 11 L 95 12/17/23 05:15 53 L 13 94 12/17/23 05:10 49 L 12 96 12/17/23 05:10 120/75 12/17/23 05:00 54 L 11 L 93 12/17/23 04:45 51 L 12 94 12/17/23 04:30 57 L 11 L 93 12/17/23 04:15 58 L 12 93 12/17/23 04:10 118/71 12/17/23 04:10 55 L 12 93 12/17/23 04:00 57 L 11 L 93 12/17/23 03:45 58 L 13 92 12/17/23 03:30 89 16 12/17/23 03:15 70 20 100 12/17/23 03:10 138/82 12/17/23 03:10 59 L 13 98 12/17/23 03:00 58 L 12 97 12/17/23 02:45 55 L 9 L 96 12/17/23 02:30 54 L 10 L 96 12/17/23 02:15 53 L 17 97 12/17/23 02:10 126/78 12/17/23 02:10 54 L 16 97 12/17/23 02:00 53 L 16 97 12/17/23 01:45 53 L 13 98 12/17/23 01:30 74 12 100 12/17/23 01:15 55 L 13 97 12/17/23 01:10 140/63 12/17/23 01:10 63 15 96 12/17/23 01:00 56 L 19 98 12/17/23 00:45 53 L 21 98 12/17/23 00:30 53 L 18 98 12/17/23 00:15 59 L 19 97 12/17/23 00:10 60 16 96 12/17/23 00:10 124/70 12/17/23 00:00 36.6 C 55 L 11 L 97 12/16/23 23:45 54 L 14 97 12/16/23 23:43 65 12/16/23 23:30 61 16 97 12/16/23 23:15 65 12 99 12/16/23 23:10 121/70 12/16/23 23:10 63 13 94 12/16/23 23:00 59 L 19 94 12/16/23 22:45 58 L 23 94 12/16/23 22:30 76 13 12/16/23 22:15 64 20 96 12/16/23 22:10 78 18 97 12/16/23 22:10 126/67 12/16/23 22:00 79 14 97 12/16/23 22:00 95 12/16/23 21:45 83 16 12/16/23 21:30 91 H 16 100 12/16/23 21:15 66 19 98 12/16/23 21:10 140/84 12/16/23 21:10 73 21 91 12/16/23 21:00 72 15 88 L 12/16/23 20:45 54 L 17 98 12/16/23 20:30 72 15 91 12/16/23 20:15 60 7 L 97 O2 Del Method 12/17/23 07:48 12/17/23 07:10 12/17/23 07:00 12/17/23 06:00 12/17/23 05:45 12/17/23 05:30 12/17/23 05:15 12/17/23 05:10 12/17/23 05:10 12/17/23 05:00 12/17/23 04:45 12/17/23 04:30 12/17/23 04:15 12/17/23 04:10 12/17/23 04:10 12/17/23 04:00 12/17/23 03:45 12/17/23 03:30 12/17/23 03:15 12/17/23 03:10 12/17/23 03:10 12/17/23 03:00 12/17/23 02:45 12/17/23 02:30 12/17/23 02:15 12/17/23 02:10 12/17/23 02:10 12/17/23 02:00 12/17/23 01:45 12/17/23 01:30 12/17/23 01:15 12/17/23 01:10 12/17/23 01:10 12/17/23 01:00 12/17/23 00:45 12/17/23 00:30 12/17/23 00:15 12/17/23 00:10 12/17/23 00:10 12/17/23 00:00 12/16/23 23:45 12/16/23 23:43 12/16/23 23:30 12/16/23 23:15 12/16/23 23:10 12/16/23 23:10 12/16/23 23:00 12/16/23 22:45 12/16/23 22:30 12/16/23 22:15 12/16/23 22:10 12/16/23 22:10 12/16/23 22:00 12/16/23 22:00 Room Air 12/16/23 21:45 12/16/23 21:30 12/16/23 21:15 12/16/23 21:10 12/16/23 21:10 12/16/23 21:00 12/16/23 20:45 12/16/23 20:30 12/16/23 20:15 Critical Care Results & Data Vital Signs (Past 12 Hours) Vital Signs Temp Pulse Resp BP Pulse Ox Pulse Ox O2 Del Method 12/17/23 07:48 Room Air 12/17/23 07:10 107/61 12/17/23 07:00 51 L 12 97 Room Air 12/17/23 06:00 56 L 10 L 94 12/17/23 05:45 55 L 12 94 12/17/23 05:30 54 L 11 L 95 12/17/23 05:15 53 L 13 94 12/17/23 05:10 49 L 12 96 12/17/23 05:10 120/75 12/17/23 05:00 54 L 11 L 93 12/17/23 04:45 51 L 12 94 12/17/23 04:30 57 L 11 L 93 12/17/23 04:15 58 L 12 93 12/17/23 04:10 118/71 12/17/23 04:10 55 L 12 93 12/17/23 04:00 57 L 11 L 93 12/17/23 03:45 58 L 13 92 12/17/23 03:30 89 16 12/17/23 03:15 70 20 100 12/17/23 03:10 138/82 12/17/23 03:10 59 L 13 98 12/17/23 03:00 58 L 12 97 12/17/23 02:45 55 L 9 L 96 12/17/23 02:30 54 L 10 L 96 12/17/23 02:15 53 L 17 97 12/17/23 02:10 126/78 12/17/23 02:10 54 L 16 97 12/17/23 02:00 53 L 16 97 12/17/23 01:45 53 L 13 98 12/17/23 01:30 74 12 100 12/17/23 01:15 55 L 13 97 12/17/23 01:10 140/63 12/17/23 01:10 63 15 96 12/17/23 01:00 56 L 19 98 12/17/23 00:45 53 L 21 98 12/17/23 00:30 53 L 18 98 12/17/23 00:15 59 L 19 97 12/17/23 00:10 60 16 96 12/17/23 00:10 124/70 12/17/23 00:00 36.6 C 55 L 11 L 97 12/16/23 23:45 54 L 14 97 12/16/23 23:43 65 12/16/23 23:30 61 16 97 12/16/23 23:15 65 12 99 12/16/23 23:10 121/70 12/16/23 23:10 63 13 94 12/16/23 23:00 59 L 19 94 12/16/23 22:45 58 L 23 94 12/16/23 22:30 76 13 12/16/23 22:15 64 20 96 12/16/23 22:10 78 18 97 12/16/23 22:10 126/67 12/16/23 22:00 79 14 97 12/16/23 22:00 95 12/16/23 21:45 83 16 12/16/23 21:30 91 H 16 100 12/16/23 21:15 66 19 98 12/16/23 21:10 140/84 12/16/23 21:10 73 21 91 12/16/23 21:00 72 15 88 L 12/16/23 20:45 54 L 17 98 12/16/23 20:30 72 15 91 12/16/23 20:15 60 7 L 97 O2 Del Method 12/17/23 07:48 12/17/23 07:10 12/17/23 07:00 12/17/23 06:00 12/17/23 05:45 12/17/23 05:30 12/17/23 05:15 12/17/23 05:10 12/17/23 05:10 12/17/23 05:00 12/17/23 04:45 12/17/23 04:30 12/17/23 04:15 12/17/23 04:10 12/17/23 04:10 12/17/23 04:00 12/17/23 03:45 12/17/23 03:30 12/17/23 03:15 12/17/23 03:10 12/17/23 03:10 12/17/23 03:00 12/17/23 02:45 12/17/23 02:30 12/17/23 02:15 12/17/23 02:10 12/17/23 02:10 12/17/23 02:00 12/17/23 01:45 12/17/23 01:30 12/17/23 01:15 12/17/23 01:10 12/17/23 01:10 12/17/23 01:00 12/17/23 00:45 12/17/23 00:30 12/17/23 00:15 12/17/23 00:10 12/17/23 00:10 12/17/23 00:00 12/16/23 23:45 12/16/23 23:43 12/16/23 23:30 12/16/23 23:15 12/16/23 23:10 12/16/23 23:10 12/16/23 23:00 12/16/23 22:45 12/16/23 22:30 12/16/23 22:15 12/16/23 22:10 12/16/23 22:10 12/16/23 22:00 12/16/23 22:00 Room Air 12/16/23 21:45 12/16/23 21:30 12/16/23 21:15 12/16/23 21:10 12/16/23 21:10 12/16/23 21:00 12/16/23 20:45 12/16/23 20:30 12/16/23 20:15 Lab & Micro Results (Past 24 Hours) RBC 4.72 M/uL (4.20-5.40) 12/17/23 WBC 11.51 K/ul (4.8-10.8) H 12/17/23 Hgb 12.9 g/dl (12.0-16.0) 12/17/23 Hct 39.3 % (37.0-47.0) 12/17/23 MCV 83.3 fL (80.0-100.0) 12/17/23 MCH 27.3 pg (25.0-34.0) 12/17/23 MCHC 32.8 g/dL (32.0-36.0) 12/17/23 RDW Standard Deviation 38.1 fL (36.4-46.3) 12/17/23 RDW Coefficient of Variation 12.5 % (11.5-14.5) 12/17/23 Plt Count 267 K/uL (130-400) 12/17/23 MPV 9.5 fL (9.4-12.4) 12/17/23 Neutrophils (%) (Auto) 80.9 % 12/17/23 Lymphocytes (%) (Auto) 11.3 % 12/17/23 Monocytes # (Auto) 0.80 K/uL (0.11-0.59) H 12/17/23 Eosinophils # (Auto) 0.00 K/uL (0.00-0.50) 12/17/23 Immature Granulocyte % (Auto) 0.6 % 12/17/23 Neutrophils # (Auto) 9.32 K/uL (1.40-6.50) H 12/17/23 Lymphocytes # (Auto) 1.30 K/uL (1.20-3.40) 12/17/23 Monocytes # (Auto) 0.80 K/uL (0.11-0.59) H 12/17/23 Eosinophils # (Auto) 0.00 K/uL (0.00-0.50) 12/17/23 Basophils # (Auto) 0.02 K/uL (0.00-0.20) 12/17/23 Immature Granulocyte # (Auto) 0.07 K/uL (0.01-0.20) 4 Na 135 mmol/L (136-145) L 12/17/23 K 4.0 mmol/L (3.5-5.1) 12/17/23 Cl 101 mmol/L (98-107) 12/17/23 CO2 28 mmol/L (21-32) 12/17/23 Anion Gap 6 (3-11) 12/17/23 BUN 21 mg/dl (6-23) 12/17/23 Creatinine 0.48 mg/dl (0.6-1.2) L 12/17/23 Estimated GFR ( Amer) > 150.0 ml/min 12/17/23 Estimated GFR (Non-Af Amer) 141.2 ml/min 12/17/23 BUN/Creatinine Ratio 43.8 (10-20) H 12/17/23 Glu 126 mg/dl (70-99(Fasting)) H 12/17/23 Ca 9.1 mg/dl (8.6-10.3) 12/17/23 Phosphorus Level 4.2 mg/dl (2.5-4.9) 12/17/23 Mg 2.2 mg/dl (1.7-2.4) 12/17/23 04:31 Calcium Level 9.1 mg/dl (8.6-10.3) 12/17/23 04:31 I & O Totals 24 Hours 12/16/23 12/17/23 12/18/23 06:59 06:59 06:59 Intake Total 1411.750 / 6151.592 3744 / 1050 Output Total 851 / 851 Balance 560.750 / 124.018 2751 / 1050 Cumulative 12/12/23 19:17 thru 12/17/23 06:00 Intake Total 7841.438 Output Total 4326 Balance 3515.438 RT Ventilator Mngmt (Last Documented) Ventilator Ordered Settings Ventilator Support Mode Assist Control 12/15/23 08:05 Respiratory Rate 12 12/17/23 07:00 Ventilator Tidal Volume 370 12/15/23 08:05 Setting Minute Ventilation 7.0 12/15/23 08:05 Positive End Expiratory 5 12/15/23 08:05 Pressure Fraction of Inspired Oxygen 30 12/15/23 08:05 Machine Comment CPAP trial attempted at this time 12/15/23 08:05 Ventilator - PT Measurements Respiratory Rate 12 Exhaled Tidal Volume 352 Minute Ventilation 7.0 Peak Inspiratory Airway 21 Pressure Plateau Pressure 13 Respiratory Cycle Inspiratory: 1:3.4 Expiratory Ratio Inspiratory Phase Time 0.85 End-Tidal CO2 52 Static Lung Compliance 44.00 Dynamic Lung Compliance 22.00 Normal Static Lung Compliance 46.00 Patient Measurements Comment Patient extubated to 2L, SPO2 97% Coding Level of Care Code 06832 SUB INP/OBS CARE 3/50MIN Diagnoses COVID-19 U07.1 Mast cell activation syndrome D89.40 Migraine G43.909 Anxiety F41.9 Chronic idiopathic urticaria L50.1 Constipation K59.00 Adverse effect of anticholinergic T44.3X5A
[2023-12-17] MEDS: ONDANSETRON INJ 2 MG/ML 2 ML VIAL IV PRN ×3 (09:21→21:44)
[2023-12-17] MEDS: SENNA PO SCH ×3 (09:21→20:59)
[2023-12-17] MEDS ORDERED: SOD PHOSPHATE/SOD BIPHOSPHATE ENEMA 132 ML BTL PR STA (09:28)
[2023-12-17] MEDS ORDERED: DOCUSATE SODIUM 100 MG CAP PO ONE (14:04)
[2023-12-17] MEDS: DOCUSATE SODIUM 100 MG CAP PO SCH ×2 (14:07→20:34)
--- NOTE | 2023-12-17 15:57 | Hospitalist Progress Note ---
Date of Service December 17, 2023 Assessment & Plan (1) Allergic reaction: Plan: 17 yo female with PMHx of chronic idiopathic urticaria, mast cell activation syndrome, migraines, anxiety, and gastroparesis presents with allergic reaction. Angioedema Not sure if this is true angioedema or anxiety related Patient had been having episodes of tongue swelling, stridor, anxiety, inability to swallow saliva requiring several doses of EpiPen, steroids, Benadryl, Ativan in the last few days. She eventually got intubated for airway protection on 12/14, extubated 12/15 Patient's recreation technician has been making recommendations, look at his notes on 12/13, and 12/14 The plan is to also continue steroids and antihistamines She is now on Solu-Medrol 40 mg IV daily, convert to p.o. prednisone She is on Benadryl IV as needed. She also needs a long-acting antihistamine. The recreation technician recommends Atarax but the mother states that it had caused her to have chest pain in the past. For now she is on doxepin. This is most likely not an anaphylactic reaction as she never dropped her blood pressure The patient has chronic idiopathic urticaria and mast cell activation syndrome [employer] Supervisor on board Patient be transferred out of ICU Constipation Ordered milk of mag Colace and MiraLAX are marked as allergies She is ordered senna #COVID -diagnosed 12/10/23 with PCP - solumedrol as above - otherwise supportive care The angioedema could be exacerbated by COVID infection #Gastroparesis -cont. famotidine #Anxiety -cont. fluoxetine -ativan prn #Migraines -Hold [employer] [facility] D[facility] ppx: Lovenox Code Status: full Transfer out of ICU, hopefully discharge in next 24 to 48 hours (2) COVID-19: (3) Mast cell activation syndrome: (4) Anxiety: (5) Chronic idiopathic urticaria: (6) Migraine: (7) Gastroparesis: Admission and Anticipated Discharge Date Admission Date: December 14, 2023 Subjective Patient seen and examined today, still complains of constipation, and has had on preferable regimen for bowel movement at home which works for her, she stated double fleet enema and double Colace twice daily Review of Systems Review of Systems: All systems reviewed are negative, apart from the ones contained in the history. Physical Exam Physical Exam: The patient is awake, alert and oriented 3, well developed and well nourished, normocephalic and atraumatic, lying in bed and in no acute distress. HEENT--PERRL, EOMI, mucous membranes and oropharynx mildly dry Neck--supple. No JVD. No bruits. Thyroid normal, trachea midline, no adenopat hy. Heart--normal S1 and S2. No murmurs, rubs or gallops. Lungs--clear bilaterally, no respiratory distress, no accessory muscle use. Abdomen--normal bowel sounds and soft. Extremities--no cyanosis or clubbing. No edema. Dermatologic--normal skin turgor, normal color, no abnormal lymph nodes, no rash. Neurologic--cranial nerves II through XII grossly intact. Rheumatologic--normal range of motion. Psychiatric--normal affect. Results & Data Results & Data Vital Signs (Past 12 Hours) Vital Signs Temp Pulse Pulse Resp BP BP Pulse Ox 12/17/23 14:37 84 16 136/88 96 12/17/23 11:18 98.2 F 12/17/23 11:10 72 14 97 12/17/23 11:10 130/67 12/17/23 10:00 71 14 12/17/23 08:00 60 13 126/78 98 12/17/23 08:00 98.1 F 12/17/23 08:00 12/17/23 07:48 12/17/23 07:10 107/61 12/17/23 07:00 51 L 12 97 12/17/23 06:00 56 L 10 L 94 12/17/23 05:45 55 L 12 94 12/17/23 05:30 54 L 11 L 95 12/17/23 05:15 53 L 13 94 12/17/23 05:10 49 L 12 96 12/17/23 05:10 120/75 12/17/23 05:00 54 L 11 L 93 12/17/23 04:45 51 L 12 94 12/17/23 04:30 57 L 11 L 93 12/17/23 04:15 58 L 12 93 12/17/23 04:10 118/71 12/17/23 04:10 55 L 12 93 12/17/23 04:00 57 L 11 L 93 O2 Del Method O2 Del Method 12/17/23 14:37 Room Air 12/17/23 11:18 12/17/23 11:10 Room Air 12/17/23 11:10 12/17/23 10:00 12/17/23 08:00 12/17/23 08:00 12/17/23 08:00 Room Air 12/17/23 07:48 Room Air 12/17/23 07:10 12/17/23 07:00 Room Air 12/17/23 06:00 12/17/23 05:45 12/17/23 05:30 12/17/23 05:15 12/17/23 05:10 12/17/23 05:10 12/17/23 05:00 12/17/23 04:45 12/17/23 04:30 12/17/23 04:15 12/17/23 04:10 12/17/23 04:10 12/17/23 04:00 PG Care Time/CCT Total # of Minutes Spent Total Time Spent with Patient: Total time spent is greater than 50% in coordination of care (as documented) at patient's floor/unit and/or counseling patient: Coding Level of Care Code 00190 SUB INP/OBS CARE 2/35MIN Diagnoses Allergic reaction T78.40XA COVID-19 U07.1 Mast cell activation syndrome D89.40 Anxiety F41.9 Chronic idiopathic urticaria L50.1 Migraine G43.909 Gastroparesis K31.84 Time Spent (min) 35
[2023-12-17 16:52] LABS: Complement C3 83 mg/dL (83-193); Complement Total(CH50) 57 U/mL (31-60)
[2023-12-17] MEDS: MONTELUKAST SOD 5 MG CHEWABLE TAB PO SCH (17:06)
[2023-12-17] MEDS: FLUoxetine HCL 20 MG CAP PO SCH (20:34)
[2023-12-17] MEDS: DOXEPIN HCL 10 MG CAPSULE PO SCH (20:34)
[2023-12-18] MEDS: diphenhydrAMINE 50 MG/ML VIAL IV SCH ×3 (00:15→08:01)
[2023-12-18] MEDS: diphenhydrAMINE 50 MG/ML VIAL IV PRN ×2 (04:26→10:49)
[2023-12-18 07:19] LABS: Basophils # (auto) 0.01 K/uL (0.00-0.20); Basophils % (auto) 0.1 %; Hematocrit (blood only) 42.1 % (37.0-47.0); Hemoglobin 14.1 g/dl (12.0-16.0); Immature Granulocytes # (auto) 0.14 K/uL (0.01-0.20); Lymphocytes # (auto) 2.16 K/uL (1.20-3.40); Lymphocytes % (auto) 15.1 %; Mean Corpuscular Hemoglobin 27.6 pg (25.0-34.0); Mean Corpuscular Hgb Conc 33.5 g/dL (32.0-36.0); Mean Corpuscular Volume 82.5 fL (80.0-100.0); Mean Platelet Volume 9.6 fL (9.4-12.4); Monocytes # (auto) 1.23 K/uL (0.11-0.59); Monocytes % (auto) 8.6 %; Neutrophils # (auto) 10.79 K/uL (1.40-6.50); Neutrophils % (auto) 75.2 %; Platelet Count 326 K/uL (130-400); RDW Coefficient of Variation 12.7 % (11.5-14.5); RDW Standard Deviation 38.2 fL (36.4-46.3); White Blood Count 14.33 K/ul (4.8-10.8)
[2023-12-18 07:33] LABS: BUN Creatinine Ratio 40.6 (10-20); Calcium 9.3 mg/dl (8.6-10.3); Creatinine Clr Calc Pharmacy 141.2 ml/min; Est GFR (African American) 148.9 ml/min; Est GFR (Non-African American) 128.5 ml/min; Magnesium 2.4 mg/dl (1.7-2.4); Phosphorus 4.8 mg/dl (2.5-4.9); Potassium 4.1 mmol/L (3.5-5.1)
[2023-12-18] MEDS: ENOXAPARIN INJ 40 MG/0.4 ML SYR SQ SCH (07:43)
[2023-12-18] MEDS: methylPREDNISolone 40 MG in SYRINGE 0 ML IV SCH (07:56)
[2023-12-18] MEDS: CETIRIZINE HCL 10 MG TABLET PO SCH (07:56)
[2023-12-18] MEDS: FLUTICASONE PROPIONATE NA SPR 16 GM BTL SCH (07:57)
[2023-12-18] MEDS: FAMOTIDINE 20 MG in SYRINGE 3 ML IV SCH (07:57)
[2023-12-18] MEDS: LANSOPRAZOLE 30 MG SOLTAB NG SCH (07:58)
[2023-12-18] MEDS: DOCUSATE SODIUM 100 MG CAP PO SCH (08:01)
--- NOTE | 2023-12-18 13:20 | Discharge Summary ---
Date of Service December 18, 2023 Admission HPI Per Admitting Provider 17 yo female with PMHx of chronic idiopathic urticaria, mast cell activation syndrome, migraines, anxiety, and gastroparesis presents with allergic reaction. Was discharged from [facility] this morning and was doing great all day. For dinner she had a variety of foods including cookies made out of almond flour which she is allergic too. 30 minutes after started experiencing generalized itching, throat/tongue swelling, difficulty breathing, abd pain, and diarrhea. Due to possible anaphylaxis patient did have a dose of epinephrine IM. Denies fever, chills, fatigue, chest pain, nausea, vomiting, constipation, dysuria, extremity numbness/tingling/weakness. She has a longstanding history of chronic idiopathic urticaria and mast cell activation for which she follows with allergy for. Principal Diagnosis Anaphylaxis Discharge Exam The patient is awake, alert and oriented 3, well developed and well nourished, normocephalic and atraumatic, lying in bed and in no acute distress. HEENT--PERRL, EOMI, mucous membranes and oropharynx mildly dry Neck--supple. No JVD. No bruits. Thyroid normal, trachea midline, no leslie nopathy. Heart--normal S1 and S2. No murmurs, rubs or gallops. Lungs--clear bilaterally, no respiratory distress, no accessory muscle use. Abdomen--normal bowel sounds and soft. Extremities--no cyanosis or clubbing. No edema. Dermatologic--normal skin turgor, normal color, no abnormal lymph nodes, no rash. Neurologic--cranial nerves II through XII grossly intact. Rheumatologic--normal range of motion. Psychiatric--normal affect. Discharge Data Allergies Allergy/AdvReac Type Severity Reaction Status Date / Time docusate [From Senna-S] Allergy Severe Hives, Verified 12/11/23 22:01 stridor plecanatide [From Trulance] Allergy Severe Anaphylaxis Verified 12/11/23 17:11 polyethylene glycol Allergy Severe Anaphylaxis Verified 12/11/23 17:11 [From Golytely] potassium chloride Allergy Severe Anaphylaxis Verified 12/11/23 17:11 [From Golytely] senna [From Senna-S] Allergy Severe Hives, Verified 12/11/23 22:01 stridor shellfish derived Allergy Severe Unknown Verified 12/13/23 15:21 sodium [From Golytely] Allergy Severe Anaphylaxis Verified 12/11/23 17:11 sodium bicarbonate Allergy Severe Anaphylaxis Verified 12/11/23 17:11 [From Golytely] sodium chloride Allergy Severe Anaphylaxis Verified 12/11/23 17:11 [From Golytely] sodium sulfate Allergy Severe Anaphylaxis Verified 12/11/23 17:11 [From Golytely] adhesive Allergy Intermediate Hives Verified 12/11/23 22:01 latex Allergy Intermediate Rash Verified 12/11/23 17:11 oxycodone Allergy Intermediate hives/rash Verified 12/11/23 17:11 Penicillins Allergy Intermediate vomiting/ra Verified 12/11/23 17:11 sh polyethylene glycol 3350 Allergy Intermediate hives/itchi Verified 12/11/23 17:11 [From Miralax] ng Sulfa (Sulfonamide Allergy Intermediate Rash Verified 12/11/23 17:11 Antibiotics) sulfamethoxazole Allergy Intermediate Rash Verified 12/11/23 17:11 [From Sulfamethoxazole-Trimethoprim] tetrahydrozoline Allergy Intermediate Rash Verified 12/11/23 17:11 trimethoprim Allergy Intermediate Rash Verified 12/11/23 17:11 [From Sulfamethoxazole-Trimethoprim] zinc Allergy Intermediate Itching Verified 12/11/23 22:03 nickel Allergy Mild Rash Verified 12/11/23 17:11 almond Allergy Unknown Unknown Verified 12/13/23 15:21 cashew nut Allergy Unknown Unknown Verified 12/13/23 15:21 clams Allergy Unknown Unknown Verified 12/13/23 15:21 crab Allergy Unknown Unknown Verified 12/13/23 15:21 egg Allergy Unknown Unknown Verified 12/13/23 15:21 hazelnut Allergy Unknown Unknown Verified 12/13/23 15:23 lobster Allergy Unknown Unknown Verified 12/13/23 15:23 scallops Allergy Unknown Unknown Verified 12/13/23 15:23 sesame seed Allergy Unknown Unknown Verified 12/13/23 15:23 shrimp Allergy Unknown Unknown Verified 12/13/23 15:23 soybean Allergy Unknown Unknown Verified 12/13/23 15:23 walnut Allergy Unknown Unknown Verified 12/13/23 15:23 aspirin AdvReac Severe gi bleed Verified 12/11/23 17:11 gluten AdvReac Severe celiac Verified 12/11/23 17:11 disease ibuprofen AdvReac Severe gi bleed Verified 12/11/23 17:11 NSAIDS (Non-Steroidal AdvReac Severe gi bleed Verified 12/11/23 17:11 Anti-Inflamma metoclopramide [From Reglan] AdvReac Intermediate muscle Verified 12/11/23 17:11 spasm avocado AdvReac Unknown Swelling Verified 12/13/23 15:25 of Lip/Tongue/Throat banana AdvReac Unknown Swelling Verified 12/13/23 15:25 of Lip/Tongue/Throat clarithromycin [From Biaxin] AdvReac Unknown unsure Verified 12/11/23 17:11 ferric carboxymaltose AdvReac Unknown unsure Verified 12/11/23 17:11 Consultations 12/12/23 20:30 ED Decision to Admit Stat 12/12/23 21:33 Consult Allergy / Immunology Routine 12/13/23 14:49 Consult Kettle Operator Head Stat Hospital Course (1) Allergic reaction: 17 yo female with PMHx of chronic idiopathic urticaria, mast cell activation syndrome, migraines, anxiety, and gastroparesis presents with allergic reaction. Angioedema Not sure if this is true angioedema or anxiety related Patient had been having episodes of tongue swelling, stridor, anxiety, inability to swallow saliva requiring several doses of EpiPen, steroids, Benadryl, Ativan in the last few days. She eventually got intubated for airway protection on 12/14, extubated 12/15 Patient's hair mixer has been making recommendations, look at his notes on 12/13, and 12/14 The plan is to also continue steroids and antihistamines She is now on Solu-Medrol 40 mg IV daily, convert to p.o. prednisone She is on Benadryl IV as needed. She also needs a long-acting antihistamine. The hair mixer recommends Atarax but the mother states that it had caused her to have chest pain in the past. For now she is on doxepin. This is most likely not an anaphylactic reaction as she never dropped her blood pressure The patient has chronic idiopathic urticaria and mast cell activation syndrome Bench Shear Operator on board Follow-up with hair mixer by 1:30 PM today Constipation Ordered milk of mag Colace and MiraLAX are marked as allergies She is ordered senna #COVID -diagnosed 12/10/23 with PCP - solumedrol as above - otherwise supportive care The angioedema could be exacerbated by COVID infection #Gastroparesis -cont. famotidine #Anxiety -cont. fluoxetine -ativan prn #Migraines -Hold Nurte DVT ppx: Lovenox Code Status: full Discharge home (2) COVID-19: (3) Mast cell activation syndrome: (4) Anxiety: (5) Chronic idiopathic urticaria: (6) Migraine: (7) Gastroparesis: Total Time Total Time Spent Total Time Spent (In Minutes): 35 Discharge Plan Discharge Items Patient Disposition: Home - Self-Care Reason For Visit: ANAPHYLAXIS Discharge Diagnosis: anaphylaxis Activity: Resume your previous activity Non-emergency contact: Primary Care Provider Call non-emergency contact if: you have any medication questions Follow-up/Referrals: Araseli Pacheco MD [Primary Care Provider] - Diet: Regular Addtl Attending Provider Instructions: You have an appointment with your Bench Shear Operator Dr De La Paz by 1;30 today Pending Studies at Discharge: No Stand-Alone Forms: [employer], Smoking Cessation Medications and DC Order Prescriptions: New diphenhydramine HCl [Benadryl Allergy] 25 mg tablet 25 mg PO TID PRN (Reason: allergy symptoms) Qty: 20 0RF prednisone 10 mg tablet 10 mg PO DAILY Qty: 30 0RF Rx Instructions: 40 mg for 3 days then 30 for 3 days then 20 for 3 days then 10 for 3 days. pantoprazole [Protonix] 40 mg tablet,delayed release (DR/EC) 40 mg PO DAILY Qty: 30 0RF Continued Xolair 150 mg/mL syringe 300 mg subcut .COMPLEX Qty: 4 11RF Rx Instructions: INJECT 300 mg subcutaneously EVERY 2 WEEKS APPROVED GOOD 10/16/23 - 10/16/24 prednisone 10 mg tablet See Rx Instructions PO .COMPLEX Qty: 30 0RF Rx Instructions: 50mg x 2 days, 40mg x 2days, 30mg x 2days, 20mg x2days, 10mg x 2day doxepin 10 mg/mL concentrate 5 mg PO DAILY Qty: 120 6RF fluoxetine 20 mg capsule 20 mg PO DAILY lorazepam 0.5 mg tablet 0.5 mg PO DAILY PRN (Reason: Anxiety) Rx Instructions: Patient says her dose is 2 mg tid prn, but I can find no record of this. This dose above is from 1st. ondansetron HCl 8 mg tablet 8 mg PO DAILY PRN (Reason: Nausea) cetirizine 10 mg tablet 20 mg PO BID Qty: 60 11RF Nurtec ODT 75 mg tablet,disintegrating 75 mg PO Q OTHER DAY epinephrine [EpiPen] 0.3 mg/0.3 mL auto-injector 0.3 mg IM Q4H PRN (Reason: anaphylaxis) Qty: 2 0RF hydroxyzine HCl 25 mg tablet 25 mg PO QID PRN (Reason: hives) famotidine 40 mg tablet 40 mg PO BID Qty: 180 3RF epinephrine 0.3 mg/0.3 mL auto-injector 0.3 mg IM Q4H PRN (Reason: Anaphylaxis) Qty: 2 4RF fluticasone propionate [Flonase Allergy Relief] 50 mcg/actuation spray,suspension 2 spray intranasal DAILY Qty: 1 0RF Rx Instructions: administer into each nostril levalbuterol tartrate 45 mcg/actuation HFA aerosol inhaler 1 puff inhalation Q6H PRN (Reason: Wheezing) Qty: 1 0RF Discharge Orders: Discharge Order (Routine); Ordered 12/18/23 Ordered By: Tremaine Chappell Admission Data Admit Date/Time: 12/14/23 08:09 Attending Provider: Tremaine Chappell Admit Provider: Dave Lambert Primary Care Provider: Araseli Pacheco Other Providers: Robin Melissa; Les Rmairez; Yomi Trejo Other Interventions: Discharge Summary Assessment (RN) Last Done: 12/18/23 11:31 Coding Level of Care Code 03929 INP/OBS DISCH >30 MIN Diagnoses Allergic reaction T78.40XA COVID-19 U07.1 Mast cell activation syndrome D89.40 Anxiety F41.9 Chronic idiopathic urticaria L50.1 Migraine G43.909 Gastroparesis K31.84 Time Spent (min) 35
== END 2023-12-18 12:30 | disposition home or self-care (01) | DRG 814 ==
LOC: ED 19:17 → EDINP 19:17 → SUATTDRO 21:22 → 2W 12-13 01:47 → 1E 12-13 22:06 → SUATTDRO 12-14 08:09 → 2E 12-18 08:30

== ENCOUNTER 2024-01-30 14:07 | Observation (INO) ==
--- NOTE | 2024-01-30 14:22 | Emergency Department Note ---
Impression & Plan Allergic reaction, Acute hypokalemia, Hyperchloremia ED Provider Note NAME: LEANDER DORANTES AGE: 18 SEX: F : 2005 ARRIVES VIA: Walk-In INFORMANT: Patient ED PROVIDER(S): Gregorio Salinas DO CHIEF COMPLAINT: Swallowing of the tongue HPI: Patient is a 18-year-old female with a past medical history of mast cell activation syndrome who presents to the ER for diarrhea which started yesterday and associate with hives. She notes about 20 minutes prior to arrival she noticed swelling of her tongue. She denies any headache or change in vision. No chest pain or shortness of breath. No dysuria, urgency, or frequency. No other exacerbating or remitting factors. ADDITIONAL HISTORY OBTAINED: Per HPI Chronic Medical/Social Conditions Affecting Care: Per HPI PAST MEDICAL HISTORY:See Below PAST SURGICAL HISTORY:See Below FAMILY HISTORY:See Below SOCIAL HISTORY:See Below HOME MEDICATIONS:See Below ALLERGIES:See Below VITALS:See Below PHYSICAL EXAMINATION: GENERAL: Sitting up in bed, alert, well appearing, well nourished, no distress, non-toxic EYE EXAM: normal conjunctiva. PERRL and EOM's grossly intact. OROPHARYNX: no exudate, no erythema, lips, buccal mucosa, and tongue normal and mucous membranes are moist with the tongue protruding between the teeth but when tongue depressor/blade used it does retract and posterior pharynx is normal. The tongue is not edematous. NECK: supple, no nuchal rigidity, no adenopathy, non-tender LUNGS: Clear to auscultation. Normal chest wall mechanics HEART: no murmurs, S1 normal and S2 normal ABDOMEN: abdomen soft, non-tender, normo-active bowel sounds, no masses, no rebound or guarding. BACK: Back is symmetrical on inspection and there is no deformity, no midline tenderness, no CVA tenderness. SKIN: no rashes and no bruising UPPER EXTREMITIES: upper extremities are grossly normal. LOWER EXTREMITIES: No pitting edema. NEURO EXAM: Normal sensorium, cranial nerves II-XII grossly intact, normal speech, no gross weakness of arms, no gross weakness of legs. MEDICAL DECISION MAKING: Patient is a 18-year-old female who presents ER for above-stated complaint. IV established blood work was obtained. Labs show no significant leukocytosis or anemia. BMP with mild hypokalemia 3.3. Chloride slightly elevated at 108. LFTs bilirubin was unremarkable. Lipase was normal. On exam there is no clear angioedema but rather her tongue is protruded out and she is holding her mouth/teeth closed on her tongue. There is no bite mendez or indentation throughout the tongue. When tongue blade is used her tongue retracts without difficulty and sits within the mouth without any clear swelling. Posterior pharynx and the tongue are unremarkable at this point. Following this the tongue then protrudes. Upon arrival they declined epinephrine. They requested Benadryl and steroids. They would not get blood work until they were received Zofran. Patient was eventually moved out of B1 following the Benadryl and the symptoms completely resolved. They did recur and she was given another 25 mg Benadryl. I discussed with Brigido and he notes that there has been previous findings. Did discuss case with the hospitalist for observation. Patient was given IV fluids. Consults/Care Managements Discussions: Per [facility] Triage Nursing notes reviewed. Limited review of prior medical records performed Vital Signs: reviewed and remarkable for no significant abnormalities Differential diagnosis: Allergic reaction, anaphylaxis, urticaria, Balbuena-Wesly syndrome, toxic epidermal necrolysis, erythema multiforme, contact dermatitis, cellulitis, as well as other pathologies. ER treatment provided: See below Diagnostics interpreted by me include EKG and cardiac monitoring as listed below: -Cardiac Monitoring: An order was placed for continuous cardiac monitoring. The monitor shows a rate of 80 with sinus rhythm. -ECG: Sinus rhythm rate 73 Normal axis T wave inversion in the inferior leads QTc 423 -Laboratory studies:Interpreted by me as stated above in MDM and shown below. Imaging studies: Xrays: As interpreted by me:none CTs show: none Procedures:none Critical Care: None Past Med/Surg History Medical History (Updated 01/30/24 @ 21:46 by Gregorio Salinas DO) Adverse effect of anticholinergic Constipation Oral allergy syndrome Angioedema Gastroparesis Migraine Anxiety 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 Social History Smoking Status: Never smoker Tobacco Type: Cigarettes Second Hand Exposure: No; Do You Dip or Chew Tobacco: No; Hx Alcohol Use: Yes Hx Substance Use: No Preferred Language: Frisian Communication Ability: Impaired Imaging Center Manager Required: No Beliefs That Will Affect Care: None Current Living Situation: Alone Current Living Situation Comment: student Other Information That Helps Us Care for You: No Feels Safe at Home: Yes Safety Concerns: Feels Safe At This Time Assistive Devices: None Allergies Allergies Allergy/AdvReac Type Severity Reaction Status Date / Time docusate [From Senna-S] Allergy Severe Hives, Verified 01/30/24 15:05 stridor plecanatide [From Trulance] Allergy Severe Anaphylaxis Verified 01/30/24 15:05 polyethylene glycol Allergy Severe Anaphylaxis Verified 01/30/24 15:05 [From Golytely] potassium chloride Allergy Severe Anaphylaxis Verified 01/30/24 15:05 [From Golytely] senna [From Senna-S] Allergy Severe Hives, Verified 01/30/24 15:05 stridor shellfish derived Allergy Severe Unknown Verified 01/30/24 15:05 sodium [From Golytely] Allergy Severe Anaphylaxis Verified 01/30/24 15:05 sodium bicarbonate Allergy Severe Anaphylaxis Verified 01/30/24 15:05 [From Golytely] sodium chloride Allergy Severe Anaphylaxis Verified 01/30/24 15:05 [From Golytely] sodium sulfate Allergy Severe Anaphylaxis Verified 01/30/24 15:05 [From Golytely] adhesive Allergy Intermediate Hives Verified 01/30/24 15:05 latex Allergy Intermediate Rash Verified 01/30/24 15:05 oxycodone Allergy Intermediate hives/rash Verified 01/30/24 15:05 Penicillins Allergy Intermediate vomiting/ra Verified 01/30/24 15:05 sh polyethylene glycol 3350 Allergy Intermediate hives/itchi Verified 01/30/24 15:05 [From Miralax] ng Sulfa (Sulfonamide Allergy Intermediate Rash Verified 01/30/24 15:05 Antibiotics) sulfamethoxazole Allergy Intermediate Rash Verified 01/30/24 15:05 [From Sulfamethoxazole-Trimethoprim] tetrahydrozoline Allergy Intermediate Rash Verified 01/30/24 15:05 trimethoprim Allergy Intermediate Rash Verified 01/30/24 15:05 [From Sulfamethoxazole-Trimethoprim] zinc Allergy Intermediate Itching Verified 01/30/24 15:05 nickel Allergy Mild Rash Verified 01/30/24 15:05 almond Allergy Unknown Unknown Verified 01/30/24 15:05 cashew nut Allergy Unknown Unknown Verified 01/30/24 15:05 clams Allergy Unknown Unknown Verified 01/30/24 15:05 crab Allergy Unknown Unknown Verified 01/30/24 15:05 egg Allergy Unknown Unknown Verified 01/30/24 15:05 hazelnut Allergy Unknown Unknown Verified 01/30/24 15:05 lobster Allergy Unknown Unknown Verified 01/30/24 15:05 scallops Allergy Unknown Unknown Verified 01/30/24 15:05 sesame seed Allergy Unknown Unknown Verified 01/30/24 15:05 shrimp Allergy Unknown Unknown Verified 01/30/24 15:05 soybean Allergy Unknown Unknown Verified 01/30/24 15:05 walnut Allergy Unknown Unknown Verified 01/30/24 15:05 aspirin AdvReac Severe gi bleed Verified 01/30/24 15:05 gluten AdvReac Severe celiac Verified 01/30/24 15:05 disease ibuprofen AdvReac Severe gi bleed Verified 01/30/24 15:05 NSAIDS (Non-Steroidal AdvReac Severe gi bleed Verified 01/30/24 15:05 Anti-Inflamma metoclopramide [From Reglan] AdvReac Intermediate muscle Verified 01/30/24 15:05 spasm avocado AdvReac Unknown Swelling Verified 01/30/24 15:05 of Lip/Tongue/Throat banana AdvReac Unknown Swelling Verified 01/30/24 15:05 of Lip/Tongue/Throat clarithromycin [From Biaxin] AdvReac Unknown unsure Verified 01/30/24 15:05 ferric carboxymaltose AdvReac Unknown unsure Verified 01/30/24 15:05 Home Meds Home Medications Medication Instructions Recorded Confirmed fluoxetine 20 mg capsule 20 mg PO DAILY 12/19/22 01/30/24 lorazepam 0.5 mg tablet 0.5 mg PO BID PRN Anxiety 12/19/22 01/30/24 ondansetron HCl 8 mg tablet 8 mg PO DAILY PRN Nausea 12/19/22 01/30/24 rimegepant 75 mg disintegrating 75 mg PO Q OTHER DAY 02/26/23 01/30/24 tablet (Nurtec ODT) hydroxyzine HCl 25 mg tablet 25 mg PO QID PRN hives 08/17/23 01/30/24 diphenhydramine HCl 25 mg 25 mg PO Q6H PRN ITCHING/ALLERGY 01/30/24 01/30/24 disintegrating tablet SYMPTOMS Previous Rx's Medication Instructions Recorded cetirizine 10 mg tablet 20 mg (2 x 10 mg) PO BID #60 tabs 12/19/22 fluticasone propionate 50 2 spray intranasal DAILY #1 inh 08/20/23 mcg/actuation nasal spray,suspension (Flonase Allergy Relief) levalbuterol tartrate 45 1 puff inhalation Q6H PRN Wheezing 08/20/23 mcg/actuation aerosol inhaler #1 inhaler omalizumab 150 mg/mL subcutaneous 300 mg (2 mL) subcut .COMPLEX #4 mL 10/16/23 syringe (Xolair) miscellaneous medical supply #60 caps 12/18/23 pantoprazole 40 mg tablet,delayed 40 mg PO DAILY #30 tabs 12/18/23 release (Protonix) famotidine 40 mg tablet 40 mg PO BID #180 tabs 12/19/23 epinephrine 0.3 mg/0.3 mL 0.3 mg (0.3 mL) IM Q20M PRN 12/27/23 injection, auto-injector (EpiPen) anaphylaxis #2 ea miscellaneous medical supply #1 btl 12/27/23 zafirlukast 20 mg tablet (Accolate) 20 mg PO BID #180 tabs 01/18/24 Results & Data (ED) Vital Signs Vital Signs - 24 hr 01/30/24 14:10 01/30/24 14:10 01/30/24 14:17 Temperature 36.4 C Temperature Source Axillary Pulse Rate 77 73 Pulse Rate [Apical] Pulse Rate from SpO2 Sensor Respiratory Rate 17 Respiratory Effort / Characteristics Non-Labored Non-Labored Respiratory Depth Normal Normal Respiratory Pattern Regular Regular Blood Pressure 146/95 H Blood Pressure [Right Arm] Blood Pressure Mean 112 Blood Pressure Mean [Right Arm] Blood Pressure Position [Right Arm] Pulse Oximetry 99 Oxygen Delivery Method Room Air Room Air Oxygen Flow Rate Sepsis Recent Fever Within 48 Hours No Sepsis New/Unexplained Change in Mental Status No Sepsis Action Taken by Nursing No Action Required 01/30/24 14:18 01/30/24 14:19 01/30/24 14:30 Temperature Temperature Source Pulse Rate 80 Pulse Rate [Apical] 72 Pulse Rate from SpO2 Sensor Respiratory Rate 20 18 Respiratory Effort / Characteristics Non-Labored Respiratory Depth Normal Respiratory Pattern Regular Blood Pressure Blood Pressure [Right Arm] 146/95 H Blood Pressure Mean Blood Pressure Mean [Right Arm] 112 Blood Pressure Position [Right Arm] Pulse Oximetry 100 99 100 Oxygen Delivery Method Room Air Room Air Room Air Oxygen Flow Rate 0 Sepsis Recent Fever Within 48 Hours Sepsis New/Unexplained Change in Mental Status Sepsis Action Taken by Nursing 01/30/24 15:00 01/30/24 15:07 01/30/24 15:07 Temperature Temperature Source Pulse Rate 70 71 Pulse Rate [Apical] Pulse Rate from SpO2 Sensor 68 Respiratory Rate 19 16 Respiratory Effort / Characteristics Respiratory Depth Respiratory Pattern Blood Pressure 137/81 Blood Pressure [Right Arm] Blood Pressure Mean 101 Blood Pressure Mean [Right Arm] Blood Pressure Position [Right Arm] Pulse Oximetry 97 96 Oxygen Delivery Method Room Air Oxygen Flow Rate Sepsis Recent Fever Within 48 Hours Sepsis New/Unexplained Change in Mental Status Sepsis Action Taken by Nursing 01/30/24 15:08 01/30/24 15:30 01/30/24 15:44 Temperature Temperature Source Pulse Rate 72 72 Pulse Rate [Apical] 70 Pulse Rate from SpO2 Sensor 72 Respiratory Rate 16 12 16 Respiratory Effort / Characteristics Non-Labored Spontaneous Respiratory Depth Normal Respiratory Pattern Blood Pressure Blood Pressure [Right Arm] 137/81 Blood Pressure Mean Blood Pressure Mean [Right Arm] 99 Blood Pressure Position [Right Arm] Sitting Pulse Oximetry 98 100 Oxygen Delivery Method Room Air Oxygen Flow Rate Sepsis Recent Fever Within 48 Hours Sepsis New/Unexplained Change in Mental Status Sepsis Action Taken by Nursing 01/30/24 16:04 01/30/24 16:05 01/30/24 16:30 Temperature Temperature Source Pulse Rate 74 Pulse Rate [Apical] Pulse Rate from SpO2 Sensor 70 73 Respiratory Rate 20 Respiratory Effort / Characteristics Respiratory Depth Respiratory Pattern Blood Pressure 127/81 Blood Pressure [Right Arm] Blood Pressure Mean 91 Blood Pressure Mean [Right Arm] Blood Pressure Position [Right Arm] Pulse Oximetry 100 100 Oxygen Delivery Method Oxygen Flow Rate Sepsis Recent Fever Within 48 Hours Sepsis New/Unexplained Change in Mental Status Sepsis Action Taken by Nursing 01/30/24 16:30 01/30/24 17:00 01/30/24 17:02 Temperature Temperature Source Pulse Rate 83 Pulse Rate [Apical] Pulse Rate from SpO2 Sensor 79 Respiratory Rate 18 Respiratory Effort / Characteristics Respiratory Depth Respiratory Pattern Blood Pressure 128/80 119/75 Blood Pressure [Right Arm] Blood Pressure Mean 90 86 Blood Pressure Mean [Right Arm] Blood Pressure Position [Right Arm] Pulse Oximetry 98 Oxygen Delivery Method Oxygen Flow Rate Sepsis Recent Fever Within 48 Hours Sepsis New/Unexplained Change in Mental Status Sepsis Action Taken by Nursing 01/30/24 17:02 01/30/24 18:27 Temperature Temperature Source Pulse Rate 75 79 Pulse Rate [Apical] Pulse Rate from SpO2 Sensor 76 Respiratory Rate 18 Respiratory Effort / Characteristics Respiratory Depth Respiratory Pattern Blood Pressure Blood Pressure [Right Arm] Blood Pressure Mean Blood Pressure Mean [Right Arm] Blood Pressure Position [Right Arm] Pulse Oximetry 98 Oxygen Delivery Method Oxygen Flow Rate Sepsis Recent Fever Within 48 Hours Sepsis New/Unexplained Change in Mental Status Sepsis Action Taken by Nursing Laboratory Data 01/30/24 15:05 01/30/24 15:05 Lab Results 01/30/24 01/30/24 Range/Units 15:05 16:29 WBC 6.20 (4.8-10.8) K/ul RBC 4.55 (4.20-5.40) M/uL Hgb 12.9 (12.0-16.0) g/dl Hct 37.8 (37.0-47.0) % MCV 83.1 (80.0-100.0) fL MCH 28.4 (25.0-34.0) pg MCHC 34.1 (32.0-36.0) g/dL RDW Std Deviation 40.5 (36.4-46.3) fL RDW Coeff of Layla 13.4 (11.5-14.5) % Plt Count 241 (130-400) K/uL MPV 9.8 (9.4-12.4) fL Immature Gran % (Auto) 0.2 % Neut % (Auto) 46.3 % Lymph % (Auto) 41.1 % Nolan % (Auto) 8.5 % Eos % (Auto) 3.7 % Baso % (Auto) 0.2 % Neut # (Auto) 2.87 (1.40-6.50) K/uL Lymph # (Auto) 2.55 (1.20-3.40) K/uL Nolan # (Auto) 0.53 (0.11-0.59) K/uL Eos # (Auto) 0.23 (0.00-0.50) K/uL Baso # (Auto) 0.01 (0.00-0.20) K/uL Immature Gran # (Auto) 0.01 (0.01-0.20) K/uL Sodium 141 (136-145) mmol/L Potassium 3.3 L (3.5-5.1) mmol/L Chloride 108 H (98-107) mmol/L Carbon Dioxide 24 (21-32) mmol/L Anion Gap 9 (3-11) BUN 9 (6-23) mg/dl Creatinine 0.64 (0.6-1.2) mg/dl Est Cr Clr Drug Dosing 154.9 ml/min Est GFR ( Amer) 148.9 ml/min Est GFR (Non-Af Amer) 128.5 ml/min BUN/Creatinine Ratio 14.1 (10-20) Glucose 72 (70-99(Fasting)) mg/dl POC Glucose 86 (70-99) mg/dl Calcium 9.5 (8.6-10.3) mg/dl Total Bilirubin 0.8 (0.2-1.0) mg/dl AST 17 (13-39) U/L ALT 11 (7-52) U/L Alkaline Phosphatase 51 (34-104) U/L Total Protein 7.4 (6.0-8.3) gm/dl Albumin 4.5 (3.4-5.0) gm/dl Globulin 2.9 (2.5-4.0) gm/dl Albumin/Globulin Ratio 1.6 (0.9-2) Lipase 20 (11-82) U/L Administered Medications Diphenhydramine HCl (Diphenhydramine 50 Mg/Ml Vial) 50 mg IV Q4H NAVIN Stop: 02/29/24 21:29 Last Admin: 01/30/24 21:27 Dose: 50 mg Documented By: NAB Discontinued Medications Acetaminophen (Acetaminophen 500 Mg Tab) 500 mg PO NOW STA Stop: 01/30/24 19:25 Last Admin: 01/30/24 20:28 Dose: 500 mg Documented By: RADHA Diphenhydramine HCl (Diphenhydramine 50 Mg/Ml Vial) 50 mg IV NOW STA Stop: 01/30/24 14:18 Last Admin: 01/30/24 14:25 Dose: 50 mg Documented By: MALA Diphenhydramine HCl (Diphenhydramine 50 Mg/Ml Vial) 25 mg IV NOW STA Stop: 01/30/24 16:51 Last Admin: 01/30/24 17:03 Dose: 25 mg Documented By: ROBINW Lactated Ringer's (Lr) 2,000 mls @ 999 mls/hr IV .Q2H1M ONE Stop: 01/30/24 16:17 Last Infusion: 01/30/24 21:34 Dose: Infused Documented By: Admin: 01/30/24 14:28 Dose: 999 mls/hr Documented By: MALA Famotidine (Pepcid 20mg Iv Push) 20 mg in 5 mls @ 2.5 mls/min IV NOW STA Stop: 01/30/24 14:18 Last Admin: 01/30/24 14:25 Dose: 2.5 mls/min Documented By: MALA Methylprednisolone (Methylprednisolone 125 Mg/2 Ml Vial) 125 mg IV NOW STA Stop: 01/30/24 14:18 Last Admin: 01/30/24 14:48 Dose: 80 mg Documented By: NESTOR Ondansetron HCl (Ondansetron Inj 2 Mg/Ml 2 Ml Vial) Confirm Administered Dose 4 mg .ROUTE .STK-MED ONE Stop: 01/30/24 14:44 Last Admin: 01/30/24 14:46 Dose: Not Given Documented By: NESTOR Ondansetron HCl (Ondansetron Inj 2 Mg/Ml 2 Ml Vial) 4 mg IV NOW STA Stop: 01/30/24 14:46 Last Admin: 01/30/24 14:46 Dose: 4 mg Documented By: NESTOR Discharge Plan Visit Data Chief Complaint: Allergic Reaction ED Provider: Gregorio Salinas Discharge Problem: Allergic reaction, Acute hypokalemia, Hyperchloremia Patient Disposition: Admitted As Inpatient Discharge Instructions Interventions: ED Discharge Assessment Last Done: 01/30/24 20:53 Discharge Problem: Allergic reaction Qualifiers: Encounter type: initial encounter Qualified Code(s): T78.40XA - Allergy, unspecified, initial encounter
[2024-01-30] MEDS: diphenhydrAMINE 50 MG/ML VIAL IV STA ×2 (14:25→17:03)
[2024-01-30] MEDS: FAMOTIDINE 20MG IV PUSH 20 MG/5 ML SYR IV STA (14:25)
[2024-01-30] MEDS: LACTATED RINGER'S 2,000 ML IV ONE (14:28)
[2024-01-30] MEDS: ONDANSETRON INJ 2 MG/ML 2 ML VIAL IV STA (14:46)
[2024-01-30] MEDS: ONDANSETRON INJ 2 MG/ML 2 ML VIAL ONE (14:46)
[2024-01-30] MEDS: methylPREDNISolone 125 MG/2 ML VIAL IV STA (14:48)
[2024-01-30 15:26] LABS: Basophils # (auto) 0.01 K/uL (0.00-0.20); Basophils % (auto) 0.2 %; Eosinophils # (auto) 0.23 K/uL (0.00-0.50); Eosinophils % (auto) 3.7 %; Hematocrit (blood only) 37.8 % (37.0-47.0); Hemoglobin 12.9 g/dl (12.0-16.0); Immature Granulocytes # (auto) 0.01 K/uL (0.01-0.20); Immature Granulocytes % (auto) 0.2 %; Lymphocytes # (auto) 2.55 K/uL (1.20-3.40); Lymphocytes % (auto) 41.1 %; Mean Corpuscular Hemoglobin 28.4 pg (25.0-34.0); Mean Corpuscular Hgb Conc 34.1 g/dL (32.0-36.0); Mean Corpuscular Volume 83.1 fL (80.0-100.0); Mean Platelet Volume 9.8 fL (9.4-12.4); Monocytes # (auto) 0.53 K/uL (0.11-0.59); Monocytes % (auto) 8.5 %; Neutrophils # (auto) 2.87 K/uL (1.40-6.50); Neutrophils % (auto) 46.3 %; Platelet Count 241 K/uL (130-400); RDW Coefficient of Variation 13.4 % (11.5-14.5); RDW Standard Deviation 40.5 fL (36.4-46.3); Red Blood Count 4.55 M/uL (4.20-5.40)
[2024-01-30 17:03] LABS: Albumin Level 4.5 gm/dl (3.4-5.0); Bilirubin,Total 0.8 mg/dl (0.2-1.0); Calcium 9.5 mg/dl (8.6-10.3); Potassium 3.3 mmol/L (3.5-5.1)
[2024-01-30 17:09] LABS: Albumin Globulin Ratio 1.6 (0.9-2); BUN Creatinine Ratio 14.1 (10-20); Creatinine Clr Calc Pharmacy 154.9 ml/min; Est GFR (African American) 148.9 ml/min; Est GFR (Non-African American) 128.5 ml/min; Globulin 2.9 gm/dl (2.5-4.0); Total Protein 7.4 gm/dl (6.0-8.3)
--- NOTE | 2024-01-30 18:39 | History & Physical Report ---
Date of Service January 30, 2024 Assessment & Plan (1) Diarrhea: Plan: Resolved; patient reports nausea and diarrhea that developed on 01/28 Her boyfriend also has a stomach bug Hx of chronic spontaneous idiopathic urticaria; diarrhea resulted in hives, rashes on her body, and tongue swelling No throat swelling, per patient Last episode of diarrhea the morning of 01/29 Zofran as needed for nausea A.m. CBC, BMP (2) Chronic idiopathic urticaria: Plan: Hx of recent [place] admission with intubation Multiple food/drug allergies Allergy/immunology consulted Plan is to watch her overnight with the following regimen: Benadryl 50 mg IV q4h scheduled; caution oversedation; communication note: If breakthrough medication is needed, nursing staff instructed to reach out to provider Maximum parenteral dosing 400 mg/day Cetirizine 20 mg p.o. twice daily Solu-Medrol 40 mg IV QAM Levalbuterol as needed for wheezing Acetaminophen as needed for pain/fever Epinephrine on-call as needed for breakthrough symptoms Patient currently takes zafirlukast 20mg BID, but this is non-formulary; spoke to pharmacy and will switch to approximate equivalent (montelukast 10 mg p.o. 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 Patient presented on 01/29 for diarrhea x 1 day, as well as tongue swelling and itching; given her history of mast cell activation syndrome, the patient and her mother called immunology and it was suggested to come in to the ER for IV Benadryl and fluids. Patient reports that both she and her boyfriend got the stomach bug, and that she has been having intermittent hives/angioedema with her diarrhea. Patient also notes she has been dizzy due to her dysautonomia. Her last episode of diarrhea was around 0800 on the morning of 01/31. She denies any blood in her stool or urine. She has been tolerating some solids such as crackers, as well as fluids such as Gatorade. Patient reports she took all of her regular morning medications today. She reports that she is no longer taking doxepin, but besides that there have been no recent change in medications. Vital stable at time of admission. ED course: LR 2000 mL IV Pepcid 20 mg IV Benadryl 50 mg + 25 mg Methylprednisolone 80 mg Zofran 4 mg x 2 ROS: Patient endorses chills, dizzyness/lightheadedness, mild tongue swelling, IGLESIAS, chest heaviness, heart racing when standing, nausea, and diarrhea. Patient denies fever, nightsweats, fall, fainting, throat swelling, chest pain, SOB, or vomiting. Reached out to Dr. Ramirez (allergy/immunology) with recommendations as follows: -Systemic corticosteroids started at 40 mg daily; may increase up to 80 mg daily -Benadryl 50 mg IV q4-6h as needed for acute swelling/hives -Benadryl 25mg q4h as a standing order -Normal for swelling to wax and wane -Epinephrine as needed, but can be avoided if airways patent and normal blood pressure Allergies Allergy/AdvReac Type Severity Reaction Status Date / Time docusate [From Senna-S] Allergy Severe Hives, Verified 01/30/24 15:05 stridor plecanatide [From Trulance] Allergy Severe Anaphylaxis Verified 01/30/24 15:05 polyethylene glycol Allergy Severe Anaphylaxis Verified 01/30/24 15:05 [From Golytely] potassium chloride Allergy Severe Anaphylaxis Verified 01/30/24 15:05 [From Golytely] senna [From Senna-S] Allergy Severe Hives, Verified 01/30/24 15:05 stridor shellfish derived Allergy Severe Unknown Verified 01/30/24 15:05 sodium [From Golytely] Allergy Severe Anaphylaxis Verified 01/30/24 15:05 sodium bicarbonate Allergy Severe Anaphylaxis Verified 01/30/24 15:05 [From Golytely] sodium chloride Allergy Severe Anaphylaxis Verified 01/30/24 15:05 [From Golytely] sodium sulfate Allergy Severe Anaphylaxis Verified 01/30/24 15:05 [From Golytely] adhesive Allergy Intermediate Hives Verified 01/30/24 15:05 latex Allergy Intermediate Rash Verified 01/30/24 15:05 oxycodone Allergy Intermediate hives/rash Verified 01/30/24 15:05 Penicillins Allergy Intermediate vomiting/ra Verified 01/30/24 15:05 sh polyethylene glycol 3350 Allergy Intermediate hives/itchi Verified 01/30/24 15:05 [From Miralax] ng Sulfa (Sulfonamide Allergy Intermediate Rash Verified 01/30/24 15:05 Antibiotics) sulfamethoxazole Allergy Intermediate Rash Verified 01/30/24 15:05 [From Sulfamethoxazole-Trimethoprim] tetrahydrozoline Allergy Intermediate Rash Verified 01/30/24 15:05 trimethoprim Allergy Intermediate Rash Verified 01/30/24 15:05 [From Sulfamethoxazole-Trimethoprim] zinc Allergy Intermediate Itching Verified 01/30/24 15:05 nickel Allergy Mild Rash Verified 01/30/24 15:05 almond Allergy Unknown Unknown Verified 01/30/24 15:05 cashew nut Allergy Unknown Unknown Verified 01/30/24 15:05 clams Allergy Unknown Unknown Verified 01/30/24 15:05 crab Allergy Unknown Unknown Verified 01/30/24 15:05 egg Allergy Unknown Unknown Verified 01/30/24 15:05 hazelnut Allergy Unknown Unknown Verified 01/30/24 15:05 lobster Allergy Unknown Unknown Verified 01/30/24 15:05 scallops Allergy Unknown Unknown Verified 01/30/24 15:05 sesame seed Allergy Unknown Unknown Verified 01/30/24 15:05 shrimp Allergy Unknown Unknown Verified 01/30/24 15:05 soybean Allergy Unknown Unknown Verified 01/30/24 15:05 walnut Allergy Unknown Unknown Verified 01/30/24 15:05 aspirin AdvReac Severe gi bleed Verified 01/30/24 15:05 gluten AdvReac Severe celiac Verified 01/30/24 15:05 disease ibuprofen AdvReac Severe gi bleed Verified 01/30/24 15:05 NSAIDS (Non-Steroidal AdvReac Severe gi bleed Verified 01/30/24 15:05 Anti-Inflamma metoclopramide [From Reglan] AdvReac Intermediate muscle Verified 01/30/24 15:05 spasm avocado AdvReac Unknown Swelling Verified 01/30/24 15:05 of Lip/Tongue/Throat banana AdvReac Unknown Swelling Verified 01/30/24 15:05 of Lip/Tongue/Throat clarithromycin [From Biaxin] AdvReac Unknown unsure Verified 01/30/24 15:05 ferric carboxymaltose AdvReac Unknown unsure Verified 01/30/24 15:05 Home Medications Medication Instructions Recorded Confirmed Type cetirizine 10 mg tablet 20 mg (2 x 10 mg) PO BID #60 tabs 12/19/22 01/30/24 Rx fluoxetine 20 mg capsule 20 mg PO DAILY 12/19/22 01/30/24 History lorazepam 0.5 mg tablet 0.5 mg PO BID PRN Anxiety 12/19/22 01/30/24 History ondansetron HCl 8 mg tablet 8 mg PO DAILY PRN Nausea 12/19/22 01/30/24 History rimegepant 75 mg disintegrating 75 mg PO Q OTHER DAY 02/26/23 01/30/24 History tablet (Nurtec ODT) hydroxyzine HCl 25 mg tablet 25 mg PO QID PRN hives 08/17/23 01/30/24 History fluticasone propionate 50 2 spray intranasal DAILY #1 inh 08/20/23 01/30/24 Rx mcg/actuation nasal spray,suspension (Flonase Allergy Relief) levalbuterol tartrate 45 1 puff inhalation Q6H PRN Wheezing 08/20/23 01/30/24 Rx mcg/actuation aerosol inhaler #1 inhaler omalizumab 150 mg/mL subcutaneous 300 mg (2 mL) subcut .COMPLEX #4 mL 10/16/23 01/30/24 Rx syringe (Xolair) miscellaneous medical supply #60 caps 12/18/23 12/18/23 Rx pantoprazole 40 mg tablet,delayed 40 mg PO DAILY #30 tabs 12/18/23 01/30/24 Rx release (Protonix) famotidine 40 mg tablet 40 mg PO BID #180 tabs 12/19/23 01/30/24 Rx epinephrine 0.3 mg/0.3 mL 0.3 mg (0.3 mL) IM Q20M PRN 12/27/23 01/30/24 Rx injection, auto-injector (EpiPen) anaphylaxis #2 ea miscellaneous medical supply #1 btl 12/27/23 Rx zafirlukast 20 mg tablet (Accolate) 20 mg PO BID #180 tabs 01/18/24 01/30/24 Rx diphenhydramine HCl 25 mg 25 mg PO Q6H PRN ITCHING/ALLERGY 01/30/24 01/30/24 History disintegrating tablet SYMPTOMS Past Med/Surg History Medical History (Updated 01/30/24 @ 21:46 by Gregorio Salinas DO) Adverse effect of anticholinergic Constipation Oral allergy syndrome Angioedema Gastroparesis Migraine Anxiety 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 Social History Smoking Status: Never smoker Tobacco Type: Cigarettes Second Hand Exposure: No; Do You Dip or Chew Tobacco: No; Hx Alcohol Use: Yes Hx Substance Use: No Preferred Language: Kazakh Communication Ability: Impaired 3Rd Pressman Required: No Beliefs That Will Affect Care: None Current Living Situation: Alone Current Living Situation Comment: student Other Information That Helps Us Care for You: No Feels Safe at Home: Yes Safety Concerns: Feels Safe At This Time Assistive Devices: None Review of Systems Review of Systems: See HPI above Physical Exam Physical Exam: General: no acute distress; pleasant affect; non-toxic appearing; cooperative HEENT: normocephalic, atraumatic; no scleral icterus; PERRLA; moist mucus membrane; vision and hearing grossly intact; mild tongue swelling Neck: supple; no swelling of the neck; patent airway; no lymphadenopathy; trachea midline Skin: warm, dry without signs of tenting; no cyanosis; no rashes, bruising, lesions, or erythema noted CV: chest wall NTP; RRR; S1/S2 normal; no murmurs/rubs/gallops; pulses intact and symmetric at radial, DP, and PT Lungs: no acute respiratory distress; symmetrical chest wall expansion; clear breath sounds across all lung morton w/o adventitious sounds; no wheezing ABD: Soft, NTP; BS present; no rebound/guarding; no ascites; no distention; mild erythematous rash with excoriations on the RLQ MSK: no tics or fasciculations; no edema noted in the LEs b/l, nonerythematous Neuro: A&Ox3; normal mood and affect; fluent speech; no focal deficits; sensation grossly intact in the LEs b/l Results & Data Results & Data Vital Signs (Past 12 Hours) Vital Signs Temp Pulse Pulse Resp BP BP Pulse Ox 01/30/24 18:27 79 01/30/24 17:02 75 18 98 01/30/24 17:02 119/75 01/30/24 17:00 83 18 98 01/30/24 16:30 128/80 01/30/24 16:30 74 20 100 01/30/24 16:05 100 01/30/24 16:04 127/81 01/30/24 15:44 72 16 01/30/24 15:30 72 12 100 01/30/24 15:08 70 16 137/81 98 01/30/24 15:07 71 16 96 01/30/24 15:07 137/81 01/30/24 15:00 70 19 97 01/30/24 14:30 80 18 100 01/30/24 14:19 99 01/30/24 14:18 72 20 146/95 H 100 01/30/24 14:17 73 01/30/24 14:10 36.4 C 77 17 146/95 H 99 01/30/24 14:10 O2 Del Method O2 Flow Rate 01/30/24 18:27 01/30/24 17:02 01/30/24 17:02 01/30/24 17:00 01/30/24 16:30 01/30/24 16:30 01/30/24 16:05 01/30/24 16:04 01/30/24 15:44 01/30/24 15:30 01/30/24 15:08 Room Air 01/30/24 15:07 01/30/24 15:07 01/30/24 15:00 Room Air 01/30/24 14:30 Room Air 01/30/24 14:19 Room Air 0 01/30/24 14:18 Room Air 01/30/24 14:17 01/30/24 14:10 Room Air 01/30/24 14:10 Room Air Laboratory Results Abnormal lab results 01/30/24 Range/Units 15:05 Potassium 3.3 L (3.5-5.1) mmol/L Chloride 108 H (98-107) mmol/L Code Status & VTE Plan Code Status Full code VTE Prophylaxis Plan VTE Prophylaxis will be ordered: No Supervising Physician Co-Signing Physician Notes Patient seen and examined, chart reviewed, case discussed with Tone Fady, PA-C and I agree with the assessment and plan as above except as otherwise noted Labs and images reviewed 18-year-old female with history of chronic idiopathic urticaria, mast cell activation syndrome, angioedema, anaphylaxis. Presents with concerns for tongue swelling. Tongue protrudes and retracts on exam, no acute airway obstruction no wheezing lungs are clear and no stridor. Patient has been placed on Benadryl, Pepcid, methylprednisolone in the ER. Benadryl continued per her allergy recommendations. Would not use any additional benzodiazepine treatments for anxiety. Continue zafirlukast, patient may use her own med if this is brought in. Continue cetirizine twice daily. PG Care Time/CCT Total # of Minutes Spent Total Time Spent with Patient: Total time spent is greater than 50% in coordination of care (as documented) at patient's floor/unit and/or counseling patient: C[place] [address] INT INP/OBS CARE 3/75MIN Patient Type Established History Comprehensive Exam Comprehensive Medical Decision Making High Complexity Diagnoses Diarrhea R19.7 Chronic idiopathic urticaria L50.1 Mast cell activation syndrome D89.40 Anxiety F41.9 Migraine G43.909 Gastroparesis K31.84
[2024-01-30] MEDS: ACETAMINOPHEN 500 MG TAB PO STA (20:28)
[2024-01-30] MEDS ORDERED: LEVALBUTEROL TARTRATE 15 GM HFA.AER.AD INH PRN (21:09)
[2024-01-30] MEDS ORDERED: hydrOXYzine HCl 25 MG TAB PO PRN (21:09)
[2024-01-30] MEDS ORDERED: EPINEPHrine INJ 1 MG/ML AMP IM PRN (21:09)
[2024-01-30] MEDS ORDERED: ONDANSETRON INJ 2 MG/ML 2 ML VIAL IV PRN (21:09)
[2024-01-30] MEDS: diphenhydrAMINE 50 MG/ML VIAL IV SCH (21:27)
[2024-01-30] MEDS ORDERED: ACETAMINOPHEN 325 MG TAB PO PRN (22:00)
[2024-01-30] MEDS: FAMOTIDINE 40 MG TABLET PO SCH (22:09)
[2024-01-30] MEDS: CETIRIZINE HCL 10 MG TABLET PO SCH (22:09)
[2024-01-30 22:29] LABS: Appearance Urine Clear (Clear); Bacteria Urine Automated Negative (Negative); Bilirubin Urine Negative (Negative); Blood Urine Trace (Negative); Cast Urine Automated 0 /lpf (0-5); Color Urine Yellow; Glucose Urine UA 1+ (Negative); Ketones Urine Negative (Negative); Leukocyte Esterase Urine Trace (Negative); Nitrite Urine Negative (Negative); Protein Urine Negative (Negative); RBC Urine Automated 0-4 /hpf (0-4); Specific Gravity Urine 1.006 (1.000-1.030); Urobilinogen Urine Negative (Negative)
[2024-01-30] MEDS: MONTELUKAST SODIUM 10 MG TABLET PO SCH (23:05)
[2024-01-30] MEDS ORDERED: Nursing to Pharmacy Communication SCH (23:15)
[2024-01-30] MEDS: FLUoxetine HCL 20 MG CAP PO SCH (23:36)
--- NOTE | 2024-01-31 06:16 | Electrocardiogram Report ---
Test Reason : Blood Pressure : / mmHG Vent. Rate : 073 BPM Atrial Rate : 073 BPM P-R Int : 148 ms QRS Dur : 082 ms QT Int : 384 ms P-R-T Axes : 047 061 003 degrees QTc Int : 423 ms Poor data quality, interpretation may be adversely affected Normal sinus rhythm Poor R wave progression, consider anterior AL vs. lead placement vs. LVH Nonspecific T wave abnormality Abnormal ECG When compared with ECG of 16-DEC-2023 05:26, T wave inversion more evident in Anterior leads Confirmed by Russell Etienne ([id number]) on 01/31/2024 6:16:07 AM Referred By: REFERRED SELF Confirmed By:Russell Etienne
[2024-01-31 06:45] LABS: Basophils # (auto) 0.02 K/uL (0.00-0.20); Basophils % (auto) 0.2 %; Eosinophils # (auto) 0.01 K/uL (0.00-0.50); Eosinophils % (auto) 0.1 %; Hematocrit (blood only) 36.3 % (37.0-47.0); Hemoglobin 12.3 g/dl (12.0-16.0); Immature Granulocytes # (auto) 0.04 K/uL (0.01-0.20); Immature Granulocytes % (auto) 0.4 %; Lymphocytes # (auto) 2.03 K/uL (1.20-3.40); Lymphocytes % (auto) 18.3 %; Mean Corpuscular Hemoglobin 27.8 pg (25.0-34.0); Mean Corpuscular Hgb Conc 33.9 g/dL (32.0-36.0); Mean Corpuscular Volume 81.9 fL (80.0-100.0); Mean Platelet Volume 9.9 fL (9.4-12.4); Monocytes # (auto) 0.81 K/uL (0.11-0.59); Monocytes % (auto) 7.3 %; Neutrophils # (auto) 8.17 K/uL (1.40-6.50); Neutrophils % (auto) 73.7 %; Platelet Count 296 K/uL (130-400); RDW Coefficient of Variation 13.3 % (11.5-14.5); Red Blood Count 4.43 M/uL (4.20-5.40); White Blood Count 11.08 K/ul (4.8-10.8)
[2024-01-31 07:00] LABS: Anion Gap 6 (3-11); BUN Creatinine Ratio 16.7 (10-20); Blood Urea Nitrogen 10 mg/dl (6-23); Carbon Dioxide 25 mmol/L (21-32); Chloride 107 mmol/L (98-107); Creatinine Clr Calc Pharmacy 162.1 ml/min; Est GFR (African American) > 150.0 ml/min; Est GFR (Non-African American) 131.2 ml/min; Glucose 101 mg/dl (70-99(Fasting)); Potassium 3.7 mmol/L (3.5-5.1); Sodium 138 mmol/L (136-145)
[2024-01-31] MEDS: methylPREDNISolone 40 MG in SYRINGE 0 ML IV SCH (08:27)
[2024-01-31] MEDS: FLUTICASONE PROPIONATE NA SPR 16 GM BTL SCH (08:27)
[2024-01-31] MEDS: PANTOprazole 40 MG TAB PO SCH (08:27)
[2024-01-31] MEDS ORDERED: FLUoxetine HCL 20 MG CAP PO SCH (09:00)
--- NOTE | 2024-01-31 10:41 | Allergy & Immunology Consult ---
Date of Consultation January 31, 2024 Assessment & Plan (1) Chronic idiopathic urticaria: (2) Mast cell activation syndrome: Plan Patient presents yesterday with gastrointestinal symptoms, dehydration, flareup of underlying chronic urticaria/angioedema. Today it seems that her symptoms are resolved and I feel that she is stable for discharge. It is not clear whether the tongue swelling was true angioedema versus subjective swelling, and so we continue to try to optimize care this patient. We will further maximize her angioedema regimen, and I will see whether we can get Zyflo approved. This might be uniquely beneficial in patients with angioedema predominant chronic u rticaria. At this point, she can resume her home medications. She does not need a prednisone taper. Typically in angioedema patient's single dose of prednisone/Solu-Medrol is often sufficient to abort attacks. 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 As result we will try to minimize her need for this medication. She has a follow-up set up with me in about 2 weeks already so we will keep this. If she has any problems in outpatient she will let me know. She has been for refill of Zofran as hers is and I will refill this. Total time for today is 45 minutes which includes reviewing records prior to patient arrival, the [id number] visit, as well as time to record documentation after patient departure. History of Present Illness Reason for Consultation: angioedema Attending Physician: Gómez Hicks MD History of Present Illness This is a 18-year-old female who is well-known to allergy and immunology. She has a diagnosis of chronic idiopathic urticaria/angioedema, possibly mast cell activation syndrome, that has been difficult to control. She is currently being optimized on medications to prevent further episodes of angioedema, but has continued to get breakouts. She had a recent admission for a flareup after COVID and appears of gotten another viral infection recently because primarily gastrointestinal symptoms of nausea and diarrhea. She felt significantly dehydrated and so came into the ER primarily for IV fluids. However, she also developed hives and tongue swelling and was admitted overnight primarily to treat the symptoms and to prevent progression. She received Benadryl IV as well as prednisone yesterday and she feels as though her symptoms have resolved today. She would like to go home at this point. Allergies Allergy/AdvReac Type Severity Reaction Status Date / Time docusate [From Senna-S] Allergy Severe Hives, Verified 01/30/24 15:05 stridor plecanatide [From Trulance] Allergy Severe Anaphylaxis Verified 01/30/24 15:05 polyethylene glycol Allergy Severe Anaphylaxis Verified 01/30/24 15:05 [From Golytely] senna [From Senna-S] Allergy Severe Hives, Verified 01/30/24 15:05 stridor shellfish derived Allergy Severe Unknown Verified 01/30/24 15:05 adhesive Allergy Intermediate Hives Verified 01/30/24 15:05 latex Allergy Intermediate Rash Verified 01/30/24 15:05 oxycodone Allergy Intermediate hives/rash Verified 01/30/24 15:05 Penicillins Allergy Intermediate vomiting/ra Verified 01/30/24 15:05 sh polyethylene glycol 3350 Allergy Intermediate hives/itchi Verified 01/30/24 15:05 [From Miralax] ng Sulfa (Sulfonamide Allergy Intermediate Rash Verified 01/30/24 15:05 Antibiotics) sulfamethoxazole Allergy Intermediate Rash Verified 01/30/24 15:05 [From Sulfamethoxazole-Trimethoprim] tetrahydrozoline Allergy Intermediate Rash Verified 01/30/24 15:05 trimethoprim Allergy Intermediate Rash Verified 01/30/24 15:05 [From Sulfamethoxazole-Trimethoprim] nickel Allergy Mild Rash Verified 01/30/24 15:05 clams Allergy Unknown Unknown Verified 01/30/24 15:05 crab Allergy Unknown Unknown Verified 01/30/24 15:05 hazelnut Allergy Unknown Unknown Verified 01/30/24 15:05 lobster Allergy Unknown Unknown Verified 01/30/24 15:05 scallops Allergy Unknown Unknown Verified 01/30/24 15:05 sesame seed Allergy Unknown Unknown Verified 01/30/24 15:05 shrimp Allergy Unknown Unknown Verified 01/30/24 15:05 aspirin AdvReac Severe gi bleed Verified 01/30/24 15:05 gluten AdvReac Severe celiac Verified 01/30/24 15:05 disease ibuprofen AdvReac Severe gi bleed Verified 01/30/24 15:05 NSAIDS (Non-Steroidal AdvReac Severe gi bleed Verified 01/30/24 15:05 Anti-Inflamma metoclopramide [From Reglan] AdvReac Intermediate muscle Verified 01/30/24 15:05 spasm avocado AdvReac Unknown Swelling Verified 01/30/24 15:05 of Lip/Tongue/Throat clarithromycin [From Biaxin] AdvReac Unknown unsure Verified 01/30/24 15:05 ferric carboxymaltose AdvReac Unknown unsure Verified 01/30/24 15:05 Home Medications Medication Instructions Recorded Confirmed Type cetirizine 10 mg tablet 20 mg (2 x 10 mg) PO BID #60 tabs 12/19/22 01/30/24 Rx fluoxetine 20 mg capsule 20 mg PO DAILY 12/19/22 01/30/24 History lorazepam 0.5 mg tablet 0.5 mg PO BID PRN Anxiety 12/19/22 01/30/24 History ondansetron HCl 8 mg tablet 8 mg PO DAILY PRN Nausea 12/19/22 01/30/24 History rimegepant 75 mg disintegrating 75 mg PO Q OTHER DAY 02/26/23 01/30/24 History tablet (Nurtec ODT) hydroxyzine HCl 25 mg tablet 25 mg PO QID PRN hives 08/17/23 01/30/24 History fluticasone propionate 50 2 spray intranasal DAILY #1 inh 08/20/23 01/30/24 Rx mcg/actuation nasal spray,suspension (Flonase Allergy Relief) levalbuterol tartrate 45 1 puff inhalation Q6H PRN Wheezing 08/20/23 01/30/24 Rx mcg/actuation aerosol inhaler #1 inhaler omalizumab 150 mg/mL subcutaneous 300 mg (2 mL) subcut .COMPLEX #4 mL 10/16/23 01/30/24 Rx syringe (Xolair) miscellaneous medical supply #60 caps 12/18/23 12/18/23 Rx pantoprazole 40 mg tablet,delayed 40 mg PO DAILY #30 tabs 12/18/23 01/30/24 Rx release (Protonix) famotidine 40 mg tablet 40 mg PO BID #180 tabs 12/19/23 01/30/24 Rx epinephrine 0.3 mg/0.3 mL 0.3 mg (0.3 mL) IM Q20M PRN 12/27/23 01/30/24 Rx injection, auto-injector (EpiPen) anaphylaxis #2 ea miscellaneous medical supply #1 btl 12/27/23 Rx zafirlukast 20 mg tablet (Accolate) 20 mg PO BID #180 tabs 01/18/24 01/30/24 Rx diphenhydramine HCl 25 mg 25 mg PO Q6H PRN ITCHING/ALLERGY 01/30/24 01/30/24 History disintegrating tablet SYMPTOMS Patient History Medical History (Updated 01/30/24 @ 21:46 by Gregorio Salinas DO) Adverse effect of anticholinergic Constipation Oral allergy syndrome Angioedema Gastroparesis Migraine Anxiety 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 Social History Smoking Status: Never smoker Tobacco Type: Cigarettes Second Hand Exposure: No; Do You Dip or Chew Tobacco: No; Hx Alcohol Use: Yes Hx Substance Use: No Preferred Language: Niuean Communication Ability: Impaired Master Merchandiser Required: No Beliefs That Will Affect Care: None Current Living Situation: Alone Current Living Situation Comment: student Other Information That Helps Us Care for You: No Feels Safe at Home: Yes Safety Concerns: Feels Safe At This Time Assistive Devices: None Review of Systems 2 Review of Systems: Constitutional: all normal. HEENT: as per HPI otherwise normal. Respiratory: as per HPI otherwise normal. Cardiovascular: all normal. Gastrointestinal: all normal. Skin: as per HPI otherwise normal. Endocrine: all normal. Hematologic: all normal. Musculoskeletal: all normal. Neurologic: all normal. Psychiatric: all normal. Vascular: all normal. Urinary: all normal. Physical Exam Constitutional: WD/WN, vitals as above Eyes: no conjunctival abnormality and sclerae not anicteric ENMT: external ear and nose normal, oropharynx normal Neck: trachea midline Respiratory: normal respiratory effort and able to speak in complete sentences; does not use accessory muscles Musculoskeletal: Head/Neck/Chest: head atraumatic Gait: normal gait Skin: no rashes and no lesions Psychiatric: A+Ox3, euthymic affect Results & Data Vital Signs (Past 12 Hours) Vital Signs Temp Pulse Pulse Resp BP Pulse Ox O2 Del Method 01/31/24 09:31 60 01/31/24 07:32 36.4 C L 69 18 126/75 100 Room Air 01/31/24 03:20 36.5 C 66 20 123/75 98 Room Air 01/30/24 23:12 36.3 C L 66 20 133/76 97 Room Air 01/30/24 22:51 67 Coding Level of Care Code 13129 IN/OBS CONSULT LVL 3,45M Diagnoses Chronic idiopathic urticaria L50.1 Mast cell activation syndrome D89.40 Time Spent (min) 45
--- NOTE | 2024-01-31 10:55 | Discharge Summary ---
Discharge Summary Date of Service January 31, 2024 Notes For Next Care Provider Patient hospitalized with Diarrhea likely from viral syndrome causing exacerbation of her chronic idiopathic urticaria. Seen by Dr. Ramirez and recommended no changes from home management. Medication Changes From Visit Dr. Nix to see if Zyflo will be approved Admission HPI Per Admitting Provider Lulu is a 18-year-old female with PMH of chronic idiopathic urticaria, migraine, mast cell activation syndrome, angioedema, and anaphylaxis. Patient presented on 01/29 for diarrhea x 1 day, as well as tongue swelling and itching; given her history of mast cell activation syndrome, the patient and her mother called immunology and it was suggested to come in to the ER for IV Benadryl and fluids. Patient reports that both she and her boyfriend got the stomach bug, and that she has been having intermittent hives/angioedema with her diarrhea. Patient also notes she has been dizzy due to her dysautonomia. Her last episode of diarrhea was around 0800 on the morning of 01/31. She denies any blood in her stool or urine. She has been tolerating some solids such as crackers, as well as fluids such as Gatorade. Patient reports she took all of her regular morning medications today. She reports that she is no longer taking doxepin, but besides that there have been no recent change in medications. Vital stable at time of admission. ED course: LR 2000 mL IV Pepcid 20 mg IV Benadryl 50 mg + 25 mg Methylprednisolone 80 mg Zofran 4 mg x 2 ROS: Patient endorses chills, dizzyness/lightheadedness, mild tongue swelling, IGLESIAS, chest heaviness, heart racing when standing, nausea, and diarrhea. Patient denies fever, nightsweats, fall, fainting, throat swelling, chest pain, SOB, or vomiting. Reached out to Dr. Ramirez (allergy/immunology) with recommendations as follows: -Systemic corticosteroids started at 40 mg daily; may increase up to 80 mg daily -Benadryl 50 mg IV q4-6h as needed for acute swelling/hives -Benadryl 25mg q4h as a standing order -Normal for swelling to wax and wane -Epinephrine as needed, but can be avoided if airways patent and normal blood p ressure Principal Dx & Hospital Course #1 = Principal Diagnosis (1) Diarrhea: patient reports nausea and diarrhea that developed on 01/28, last episode AM of 01/29 - Her boyfriend also has a stomach bug Hx of chronic spontaneous idiopathic urticaria; diarrhea resulted in hives, rashes on her body, and tongue swelling No throat swelling, per patient Resolved (2) Chronic idiopathic urticaria: Hx of recent [facility] ICU admission with intubation Multiple food/drug allergies Allergy/immunology consulted - continue home regiment, will try to get Zyflo approved - does not need steroid taper - keep follow up appointment with Dr. Ramirez (3) Mast cell activation syndrome: Chronic; noted (4) Anxiety: Continue fluoxetine (5) Migraine: continue home Nurtec every other day (6) Gastroparesis: Continue famotidine, epinephrine Plan Dispo: discharge to home with allergy follow up Mother updated at bedside Discharge Exam General: NAD, VS as above HEENT - no tongue swelling Resp: normal respiratory effort, lungs clear to auscultation no wheezing CV: RRR, no murmur, Abd: normal bowel sounds, non tender, no hepatosplenomegaly Extremities: Moves all extremities, no edema Neuro: A&O x3, Skin: intact, no lesions noted Updated Medication List Medication Instructions Recorded Confirmed Type cetirizine 10 mg tablet 20 mg (2 x 10 mg) PO BID #60 tabs 12/19/22 01/30/24 Rx fluoxetine 20 mg capsule 20 mg PO DAILY 12/19/22 01/30/24 History lorazepam 0.5 mg tablet 0.5 mg PO BID PRN Anxiety 12/19/22 01/30/24 History ondansetron HCl 8 mg tablet 8 mg PO DAILY PRN Nausea 12/19/22 01/30/24 History rimegepant 75 mg disintegrating 75 mg PO Q OTHER DAY 02/26/23 01/30/24 History tablet (Nurtec ODT) hydroxyzine HCl 25 mg tablet 25 mg PO QID PRN hives 08/17/23 01/30/24 History fluticasone propionate 50 2 spray intranasal DAILY #1 inh 08/20/23 01/30/24 Rx mcg/actuation nasal spray,suspension (Flonase Allergy Relief) levalbuterol tartrate 45 1 puff inhalation Q6H PRN Wheezing 08/20/23 01/30/24 Rx mcg/actuation aerosol inhaler #1 inhaler omalizumab 150 mg/mL subcutaneous 300 mg (2 mL) subcut .COMPLEX #4 mL 10/16/23 01/30/24 Rx syringe (Xolair) [employer] #60 caps 12/18/23 12/18/23 Rx pantoprazole 40 mg tablet,delayed 40 mg PO DAILY #30 tabs 12/18/23 01/30/24 Rx release (Protonix) famotidine 40 mg tablet 40 mg PO BID #180 tabs 12/19/23 01/30/24 Rx epinephrine 0.3 mg/0.3 mL 0.3 mg (0.3 mL) IM Q20M PRN 12/27/23 01/30/24 Rx injection, auto-injector (EpiPen) anaphylaxis #2 ea [employer] #1 btl 12/27/23 Rx zafirlukast 20 mg tablet (Accolate) 20 mg PO BID #180 tabs 01/18/24 01/30/24 Rx diphenhydramine HCl 25 mg 25 mg PO Q6H PRN ITCHING/ALLERGY 01/30/24 01/30/24 History disintegrating tablet SYMPTOMS ondansetron HCl 4 mg tablet 4 mg PO Q8H PRN nausea and 01/31/24 Rx vomiting 10 days #30 tabs Hospital Stay Data Consultations 01/30/24 17:01 ED Decision to Admit Stat 01/30/24 19:53 Consult Allergy / Immunology Routine Pending Results Patient Have Any Pending Studies at Discharge: No Discharge Instructions Given to Patient (Per Discharging Provider) Ms. Billingsley You were hospitalized after having episodes of diarrhea and a flare of your chronic urticaria. You were seen by Dr. Ramirez who recommend going back on your home regiment, without steroids. He will be sending in your Zofran. Keep your follow up with Dr. Ramirez. We discussed the Auvi-Q as an alternative to epi-pen that you could discuss with him. Please contact allergy or return to the ER with any new or worsening symptoms. Thank you for allowing us to participate in your care. Total Time Total Time Spent Total Time Spent (In Minutes): Time spend day of discharge 35 minutes including direct patient care, medication reconciliation, documentation, review of labs and images, and coordination of care. Coding Level of Care Code 56734 INP/OBS DISCH >30 MIN Diagnoses Diarrhea R19.7 Chronic idiopathic urticaria L50.1 Mast cell activation syndrome D89.40 Anxiety F41.9 Migraine G43.909 Gastroparesis K31.84
== END 2024-01-31 11:57 | disposition home or self-care (01) ==
LOC: 2E 14:07 → ED 14:07 → SUATTDRO 19:49 → 2E 20:53

== ENCOUNTER 2024-03-13 16:49 | Inpatient (IN) ==
[2024-03-13 16:55] VITALS: TEMP 98.4
[2024-03-13] MEDS: methylPREDNISolone 125 MG/2 ML VIAL IV STA (17:14)
[2024-03-13] MEDS: LORazepam 1 MG/1 ML SYR ED Inj Use IV STA (17:14)
[2024-03-13] MEDS: SODIUM CHLORIDE 0.9% 1,000 ML IV ONE (17:14)
[2024-03-13] MEDS: diphenhydrAMINE 50 MG/ML VIAL IV STA ×2 (18:09→20:54)
--- NOTE | 2024-03-13 20:00 | History & Physical Report ---
Date of Service March 13, 2024 Assessment & Plan (1) Itching: Plan: 18yo female with history of idiopathic urticaria, possible mast cell activation syndrome presenting from [facility] with ongoing symptoms. She feels that she was exposed to more pollen than usual and she may have a virus causing her symptoms. She reports tongue swelling, throat itching and difficulty swallowing. States that she had stridor before arrival. Overall feels that her symptoms are improving but states she has more tongue swelling now. She is strongly requesting IV Benadryl at a specific dose and schedule as well as IV Pepcid and IV steroids. Patient's airway does not at all seem edematous on clinical exam. No wheeze or stridor noted on exam. She does display poor effort with exam. I do not strongly feel that her current presentation represents an acute allergic or anap hylactic reaction. We will keep patient for observation overnight, however, due to report of airway symptoms prior to arrival. Patient reported worsening tongue swelling and shortness of breath later in the ER. Mother at bedside at the time and administered home epi pen 0.3mcg IM Left thigh. Patient evaluated immediately - no hypoxia, no wheeze, no stridor. Tongue protruding from her mouth but does not seem to be edematous. -Will admit to PCU -Benadryl 25mg IV q 4 hours. Patient is requesting Benadryl 50mg IV q 4 hours as well as PRN IV Benadryl. I am concerned for anticholinergic toxicity with higher doses of Benadryl therefore I feel that 25mg IV q 4 hours PRN is sufficient at this time. I feel that increasing the dosage or frequency of administration may actually be counter-productive to her care. Some concern for drug-seeking behavior as patient and mother ask quite frequently about when patient can get more Benadryl and how much Benadryl she can receive. -Pepcid 20mg IV BID -Solumedrol 40mg IV daily -Airway monitoring and continuous pulse oximetry -Continue home Cetirizine History of Present Illness Chief Complaint: Allergic reaction Primary Care Provider: Araseli Pacheco MD Lulu Billingsley is a 18yo female with history of recurrent episodes of urticaria and angioedema presenting with allergic reaction. Patient was seen by her Construction Rigger today and had an allergy shot. She then developed increased difficulty breathing. She was administered IM Benadryl and IM epinephrine in the office. She presents to the ER with concern for ongoing symptoms. She reports tongue swelling, throat itching and stridor prior to arrival. During my encounter patient was seen with her boyfriend present. She reported her symptoms somewhat improving. She was requesting admission and scheduled IV Benadryl as well as PRN IV Benadryl. Later in the evening I was called to bedside because patient was requiring epinephrine. Patient reported worsening tongue swelling and throat closure. Mother at bedside and self-administered epi-pen. Patient evaluated immediately following the event and was saturating well. No wheeze or stridor. Tongue protruding from mouth and pressed onto the roof of her mouth but did not appear to be edematous. ER Course: Ativan 1mg IV NSS x 1L Solumedrol 125mg IV Benadryl 50mg IV x 2 doses - last administered at 20:54 Allergies Allergy/AdvReac Type Severity Reaction Status Date / Time docusate [From Senna-S] Allergy Severe Hives, Verified 02/27/24 14:55 stridor plecanatide [From Trulance] Allergy Severe Anaphylaxis Verified 02/27/24 14:55 polyethylene glycol Allergy Severe Anaphylaxis Verified 02/27/24 14:55 [From Golytely] senna [From Senna-S] Allergy Severe Hives, Verified 02/27/24 14:55 stridor shellfish derived Allergy Severe Unknown Verified 02/27/24 14:55 adhesive Allergy Intermediate Hives Verified 02/27/24 14:55 latex Allergy Intermediate Rash Verified 02/27/24 14:55 oxycodone Allergy Intermediate hives/rash Verified 02/27/24 14:55 Penicillins Allergy Intermediate vomiting/ra Verified 02/27/24 14:55 sh polyethylene glycol 3350 Allergy Intermediate hives/itchi Verified 02/27/24 14:55 [From Miralax] ng Sulfa (Sulfonamide Allergy Intermediate Rash Verified 02/27/24 14:55 Antibiotics) sulfamethoxazole Allergy Intermediate Rash Verified 02/27/24 14:55 [From Sulfamethoxazole-Trimethoprim] tetrahydrozoline Allergy Intermediate Rash Verified 02/27/24 14:55 trimethoprim Allergy Intermediate Rash Verified 02/27/24 14:55 [From Sulfamethoxazole-Trimethoprim] nickel Allergy Mild Rash Verified 02/27/24 14:55 clams Allergy Unknown Unknown Verified 02/27/24 14:55 crab Allergy Unknown Unknown Verified 02/27/24 14:55 hazelnut Allergy Unknown Unknown Verified 02/27/24 14:55 lobster Allergy Unknown Unknown Verified 02/27/24 14:55 scallops Allergy Unknown Unknown Verified 02/27/24 14:55 sesame seed Allergy Unknown Unknown Verified 02/27/24 14:55 shrimp Allergy Unknown Unknown Verified 02/27/24 14:55 aspirin AdvReac Severe gi bleed Verified 02/27/24 14:55 gluten AdvReac Severe celiac Verified 02/27/24 14:55 disease ibuprofen AdvReac Severe gi bleed Verified 02/27/24 14:55 NSAIDS (Non-Steroidal AdvReac Severe gi bleed Verified 02/27/24 14:55 Anti-Inflamma metoclopramide [From Reglan] AdvReac Intermediate muscle Verified 02/27/24 14:55 spasm avocado AdvReac Unknown Swelling Verified 02/27/24 14:55 of Lip/Tongue/Throat clarithromycin [From Biaxin] AdvReac Unknown unsure Verified 02/27/24 14:55 ferric carboxymaltose AdvReac Unknown unsure Verified 02/27/24 14:55 Home Medications Medication Instructions Recorded Confirmed Type cetirizine 10 mg tablet 20 mg (2 x 10 mg) PO BID #60 tabs 12/19/22 02/27/24 Rx fluoxetine 20 mg capsule 20 mg PO DAILY 12/19/22 02/27/24 History lorazepam 0.5 mg tablet 0.5 mg PO BID PRN Anxiety 12/19/22 02/27/24 History ondansetron HCl 8 mg tablet 8 mg PO DAILY PRN Nausea 12/19/22 02/27/24 History rimegepant 75 mg disintegrating 75 mg PO Q OTHER DAY 02/26/23 02/27/24 History tablet (Nurtec ODT) hydroxyzine HCl 25 mg tablet 25 mg PO QID PRN hives 08/17/23 02/27/24 History omalizumab 150 mg/mL subcutaneous 300 mg (2 mL) subcut .COMPLEX #4 mL 10/16/23 02/27/24 Rx syringe (Xolair) [employer] #60 caps 12/18/23 02/27/24 Rx pantoprazole 40 mg tablet,delayed 40 mg PO DAILY #30 tabs 12/18/23 02/27/24 Rx release (Protonix) famotidine 40 mg tablet 40 mg PO BID #180 tabs 12/19/23 02/27/24 Rx epinephrine 0.3 mg/0.3 mL 0.3 mg (0.3 mL) IM Q20M PRN 12/27/23 02/27/24 Rx injection, auto-injector (EpiPen) anaphylaxis #2 ea [employer] #1 btl 12/27/23 02/27/24 Rx diphenhydramine HCl 25 mg 25 mg PO Q6H PRN ITCHING/ALLERGY 01/30/24 02/27/24 History disintegrating tablet SYMPTOMS ondansetron HCl 4 mg tablet 4 mg PO Q8H PRN nausea and 01/31/24 02/27/24 Rx vomiting 10 days #30 tabs fluticasone propionate 50 2 spray intranasal DAILY #1 inh 02/13/24 02/27/24 Rx mcg/actuation nasal spray,suspension (Flonase Allergy Relief) levalbuterol tartrate 45 1 puff inhalation Q6H PRN Wheezing 02/13/24 02/27/24 Rx mcg/actuation aerosol inhaler #1 inhaler zileuton 600 mg tablet,extended 2 tab PO BID #120 tabs 03/03/24 03/03/24 Rx release 12hr mphase Past Med/Surg History Medical History Allergic reaction Adverse effect of anticholinergic Constipation Oral allergy syndrome Angioedema Gastroparesis Migraine Anxiety 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 Social History Smoking Status: Never smoker Tobacco Type: Cigarettes Second Hand Exposure: No; Do You Dip or Chew Tobacco: No; Hx Alcohol Use: Yes Hx Substance Use: No Preferred Language: Guinean Communication Ability: Impaired Field Cane Scaler Helper Required: No Beliefs That Will Affect Care: None Current Living Situation: Alone Current Living Situation Comment: student Feels Safe at Home: Yes Assistive Devices: None Review of Systems Review of Systems: All systems reviewed & are unremarkable except as noted in HPI & below Physical Exam Physical Exam: General: patient resting comfortably, NAD, non-toxic in appearance, AA&O x 4, joking with boyfriend at bedside Skin: warm, dry, intact, no rashes or lesions HEENT: NC/AT, PERRL, EOMI, anicteric sclera, conjunctiva without injection, external ear normal to inspection and nontender, nares patent, moist mucus membranes, patient protruding tongue from mouth, tongue does not appear to be swollen, neck supple, trachea midline, no LAD, no thyromegaly, no JVD Heart: +S1/S2, regular, no m/r/g Lungs: equal air entry bilaterally, no rales/rhonchi/wheezes, no stridor Abd: +BS, soft, NT/ND, no masses/organomegaly/ascites Ext: warm, 2+ pulses in UE/LE bilaterally, no clubbing/cyanosis or edema Neuro: nonfocal, patient AA&O x 4, speech intact, no facial droop, moving all extremities on command with equal strength 5/5 Results & Data Results & Data Vital Signs (Past 12 Hours) Vital Signs Temp Pulse Pulse Resp BP BP Pulse Ox 03/13/24 17:21 82 16 99 03/13/24 17:15 03/13/24 17:05 88 03/13/24 16:59 84 20 100 03/13/24 16:55 96 H 16 152/87 H 100 03/13/24 16:54 36.9 C 87 18 170/103 H 97 O2 Del Method 03/13/24 17:21 Room Air 03/13/24 17:15 Room Air 03/13/24 17:05 03/13/24 16:59 Room Air 03/13/24 16:55 Room Air 03/13/24 16:54 Room Air Medications Administered Discontinued Medications Diphenhydramine HCl (Diphenhydramine 50 Mg/Ml Vial) 50 mg IV NOW STA Stop: 03/13/24 18:03 Last Admin: 03/13/24 18:09 Dose: 50 mg Documented By: GRETCHEN Diphenhydramine HCl (Diphenhydramine 50 Mg/Ml Vial) 50 mg IV NOW STA Stop: 03/13/24 20:45 Last Admin: 03/13/24 20:54 Dose: 50 mg Documented By: Epinephrine HCl (Epinephrine Inj 1 Mg/Ml Amp) Confirm Administered Dose 1 mg .ROUTE .STK-MED ONE Stop: 03/13/24 20:30 Last Admin: 03/13/24 20:39 Dose: Not Given Documented By: GASTON Epinephrine HCl (Epinephrine Inj 1 Mg/Ml Amp) Confirm Administered Dose 2 mg .ROUTE .STK-MED ONE Stop: 03/13/24 20:31 Last Admin: 03/13/24 20:40 Dose: Not Given Documented By: GASTON Sodium Chloride (Nss) 1,000 mls @ 999 mls/hr IV .Q1H1M ONE Stop: 03/13/24 18:06 Last Infusion: 03/13/24 19:33 Dose: Infused Documented By: Admin: 03/13/24 17:14 Dose: 999 mls/hr Documented By: SHIRLEY Lorazepam (Lorazepam 1 Mg/1 Ml Syr Ed Inj Use) 1 mg IV ONE STA Stop: 03/13/24 17:07 Last Admin: 03/13/24 17:14 Dose: 1 mg Documented By: SHIRLEY Methylprednisolone (Methylprednisolone 125 Mg/2 Ml Vial) 125 mg IV NOW STA Stop: 03/13/24 17:07 Last Admin: 03/13/24 17:14 Dose: 125 mg Documented By: SHIRLEY PG Care Time/CCT Total # of Minutes Spent Total Time Spent with Patient: Total time spent is greater than 50% in coordination of care (as documented) at patient's floor/unit and/or counseling patient: Coding Level of Care Code 10163 INT INP/OBS CARE 2/55MIN Diagnoses Itching L29.9
[2024-03-13] MEDS: EPINEPHrine INJ 1 MG/ML AMP ONE ×2 (20:39→20:40)
--- NOTE | 2024-03-13 21:49 | Emergency Department Note ---
History of Present Illness General Chief complaint: Allergic Reaction Stated complaint: ALLERGIC REACTION, RESPITORY DISTRESS Time Seen by Provider: 03/13/24 17:03 History of Present Illness Provider complaint: Allergic reaction 18-year-old female presents emergency department for an allergic reaction. 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 She states after that she was having more difficulty breathing. The patient received Benadryl IM and epinephrine IM in the office but came to the emergency department because they felt like she was not feeling better. Home Medications Medication Instructions Recorded Confirmed Type cetirizine 10 mg tablet 20 mg (2 x 10 mg) PO BID #60 tabs 12/19/22 02/27/24 Rx fluoxetine 20 mg capsule 20 mg PO DAILY 12/19/22 02/27/24 History lorazepam 0.5 mg tablet 0.5 mg PO BID PRN Anxiety 12/19/22 02/27/24 History ondansetron HCl 8 mg tablet 8 mg PO DAILY PRN Nausea 12/19/22 02/27/24 History rimegepant 75 mg disintegrating 75 mg PO Q OTHER DAY 02/26/23 02/27/24 History tablet (Nurtec ODT) hydroxyzine HCl 25 mg tablet 25 mg PO QID PRN hives 08/17/23 02/27/24 History omalizumab 150 mg/mL subcutaneous 300 mg (2 mL) subcut .COMPLEX #4 mL 10/16/23 02/27/24 Rx syringe (Xolair) miscellaneous medical supply #60 caps 12/18/23 02/27/24 Rx pantoprazole 40 mg tablet,delayed 40 mg PO DAILY #30 tabs 12/18/23 02/27/24 Rx release (Protonix) famotidine 40 mg tablet 40 mg PO BID #180 tabs 12/19/23 02/27/24 Rx epinephrine 0.3 mg/0.3 mL 0.3 mg (0.3 mL) IM Q20M PRN 12/27/23 02/27/24 Rx injection, auto-injector (EpiPen) anaphylaxis #2 ea miscellaneous medical supply #1 btl 12/27/23 02/27/24 Rx diphenhydramine HCl 25 mg 25 mg PO Q6H PRN ITCHING/ALLERGY 01/30/24 02/27/24 History disintegrating tablet SYMPTOMS ondansetron HCl 4 mg tablet 4 mg PO Q8H PRN nausea and 01/31/24 02/27/24 Rx vomiting 10 days #30 tabs fluticasone propionate 50 2 spray intranasal DAILY #1 inh 02/13/24 02/27/24 Rx mcg/actuation nasal spray,suspension (Flonase Allergy Relief) levalbuterol tartrate 45 1 puff inhalation Q6H PRN Wheezing 02/13/24 02/27/24 Rx mcg/actuation aerosol inhaler #1 inhaler zileuton 600 mg tablet,extended 2 tab PO BID #120 tabs 03/03/24 03/03/24 Rx release 12hr mphase Allergies Allergy/AdvReac Type Severity Reaction Status Date / Time docusate [From Senna-S] Allergy Severe Hives, Verified 02/27/24 14:55 stridor plecanatide [From Trulance] Allergy Severe Anaphylaxis Verified 02/27/24 14:55 polyethylene glycol Allergy Severe Anaphylaxis Verified 02/27/24 14:55 [From Golytely] senna [From Senna-S] Allergy Severe Hives, Verified 02/27/24 14:55 stridor shellfish derived Allergy Severe Unknown Verified 02/27/24 14:55 adhesive Allergy Intermediate Hives Verified 02/27/24 14:55 latex Allergy Intermediate Rash Verified 02/27/24 14:55 oxycodone Allergy Intermediate hives/rash Verified 02/27/24 14:55 Penicillins Allergy Intermediate vomiting/ra Verified 02/27/24 14:55 sh polyethylene glycol 3350 Allergy Intermediate hives/itchi Verified 02/27/24 14:55 [From Miralax] ng Sulfa (Sulfonamide Allergy Intermediate Rash Verified 02/27/24 14:55 Antibiotics) sulfamethoxazole Allergy Intermediate Rash Verified 02/27/24 14:55 [From Sulfamethoxazole-Trimethoprim] tetrahydrozoline Allergy Intermediate Rash Verified 02/27/24 14:55 trimethoprim Allergy Intermediate Rash Verified 02/27/24 14:55 [From Sulfamethoxazole-Trimethoprim] nickel Allergy Mild Rash Verified 02/27/24 14:55 clams Allergy Unknown Unknown Verified 02/27/24 14:55 crab Allergy Unknown Unknown Verified 02/27/24 14:55 hazelnut Allergy Unknown Unknown Verified 02/27/24 14:55 lobster Allergy Unknown Unknown Verified 02/27/24 14:55 scallops Allergy Unknown Unknown Verified 02/27/24 14:55 sesame seed Allergy Unknown Unknown Verified 02/27/24 14:55 shrimp Allergy Unknown Unknown Verified 02/27/24 14:55 aspirin AdvReac Severe gi bleed Verified 02/27/24 14:55 gluten AdvReac Severe celiac Verified 02/27/24 14:55 disease ibuprofen AdvReac Severe gi bleed Verified 02/27/24 14:55 NSAIDS (Non-Steroidal AdvReac Severe gi bleed Verified 02/27/24 14:55 Anti-Inflamma metoclopramide [From Reglan] AdvReac Intermediate muscle Verified 02/27/24 14:55 spasm avocado AdvReac Unknown Swelling Verified 02/27/24 14:55 of Lip/Tongue/Throat clarithromycin [From Biaxin] AdvReac Unknown unsure Verified 02/27/24 14:55 ferric carboxymaltose AdvReac Unknown unsure Verified 02/27/24 14:55 Past Med/Surg History Medical History Allergic reaction Adverse effect of anticholinergic Constipation Oral allergy syndrome Angioedema Gastroparesis Migraine Anxiety 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 Social History Smoking Status: Never smoker Tobacco Type: Cigarettes Second Hand Exposure: No; Do You Dip or Chew Tobacco: No; Hx Alcohol Use: Yes Hx Substance Use: No Preferred Language: Pakistani Communication Ability: Impaired Foster Care Worker Required: No Beliefs That Will Affect Care: None Current Living Situation: Alone Current Living Situation Comment: student Feels Safe at Home: Yes Assistive Devices: None Physical Exam Vital Signs Vital Signs - 24 hr 03/13/24 16:54 03/13/24 16:55 03/13/24 16:59 Temperature 36.9 C Temperature Source Temporal Artery Scan Pulse Rate 96 H 84 Pulse Rate [Right] 87 Pulse Rhythm Respiratory Rate 18 16 20 Respiratory Effort / Characteristics Non-Labored Spontaneous Respiratory Depth Normal Respiratory Pattern Blood Pressure 152/87 H Blood Pressure [Right Arm] 170/103 H Blood Pressure Mean 108 Blood Pressure Mean [Right Arm] 125 Pulse Oximetry 97 100 100 Oxygen Delivery Method Room Air Room Air Room Air Sepsis Recent Fever Within 48 Hours No Sepsis New/Unexplained Change in Mental Status N/A Sepsis Action Taken by Nursing No Action Required 03/13/24 17:05 03/13/24 17:15 03/13/24 17:21 Temperature Temperature Source Pulse Rate 88 82 Pulse Rate [Right] Pulse Rhythm Regular Respiratory Rate 16 Respiratory Effort / Characteristics Non-Labored Spontaneous Respiratory Depth Normal Respiratory Pattern Regular Blood Pressure Blood Pressure [Right Arm] Blood Pressure Mean Blood Pressure Mean [Right Arm] Pulse Oximetry 99 Oxygen Delivery Method Room Air Room Air Sepsis Recent Fever Within 48 Hours Sepsis New/Unexplained Change in Mental Status Sepsis Action Taken by Nursing 03/13/24 19:57 Temperature Temperature Source Pulse Rate Pulse Rate [Right] Pulse Rhythm Respiratory Rate Respiratory Effort / Characteristics Respiratory Depth Respiratory Pattern Blood Pressure Blood Pressure [Right Arm] Blood Pressure Mean Blood Pressure Mean [Right Arm] Pulse Oximetry 99 Oxygen Delivery Method Room Air Sepsis Recent Fever Within 48 Hours Sepsis New/Unexplained Change in Mental Status Sepsis Action Taken by Nursing Physical Exam HENT: Exam performed. -Head: Normocephalic and atraumatic. -Right Ear: External ear normal. No mastoid erythema -Left Ear: External ear normal. No mastoid erythema -Mouth/Throat: The oropharynx is clear and moist. No trismus in the jaw. No dental abscesses or uvula swelling. No oropharyngeal exudate or tonsillar abscesses. No tongue or uvula swelling. No lip swelling. EYES: Conjunctivae and EOM are normal. Pupils are equal, round, and reactive to light. Right eye exhibits no discharge. Left eye exhibits no discharge. No scleral icterus. NECK: Normal range of motion. Neck supple. No JVD present. No spinous process tenderness present. CV: Normal rate, regular rhythm, normal heart sounds and intact distal pulses. There is no peripheral edema. Palpable radial pulses bue. PULM/CHEST: Effort normal and breath sounds normal. No respiratory distress. No stridor. She has no wheezes. She has no rales. NEURO: Motor and sensation grossly intact. SKIN: Skin is warm and dry. She is not diaphoretic. Course Course 1702: The patient was evaluated in room A1. A complete history and physical exam was performed Cardiac monitoring: An order was placed for continuous cardiac monitoring. The monitor shows a rate of 90 with sinus rhythm interpreted by me On arrival the patient is speaking in full sentences. She is protruding her tongue from her mouth intermittently however there is no true swelling of her tongue, lip or uvula. No stridor. No wheezes. 1716: Received a call from Dr. Ramirez. Patient was given an injection for Xolair today. Patient developed itchiness and tongue swelling afterwards. According to Dr. Ramirez the tongue swelling was ambiguous as she has had episodes in the past was unclear if the patient truly had tongue with swelling or if she was just sticking her tongue out. 50 mg of Benadryl was given and there is no improvement so she got 0.3 mg of IM. After short period of time her symptoms returned and she received another dose of IM Benadryl. Dr. Ramirez stated that after that the mother wanted to take her to the emergency depart ment. He stated he is not sure if the patient is truly having an allergic reaction or angioedema. He stated would be very rare for epinephrine to improve her symptoms in such a short amount of time after receiving epinephrine. Solu- Medrol and Ativan will be ordered for the patient. 1809: Vital signs stable. Patient in no respiratory distress. No stridor. No wheezing. Lip or tongue swelling. No facial swelling. Mother at bedside. Patient and mother seems fixated on receiving Benadryl again. They states that is the only thing that helps her. She states she is she is supposed to get it every 4 hours 50 mg IV. She states IM and oral do not work for her. Benadryl IV ordered as patient had requested. 1934: Patient is resting comfortably with a male mud engineer at bedside. Patient is not in any respiratory distress speaking full sentences to this male mud engineer. There is no tongue or lip swelling. I discussed with the patient both she and I thought that she be discharged home. The patient then called her mother on the telephone and after speaking with her the mother states the patient cannot be discharged home as her symptoms will reappear in 4 hours she states once her Benadryl was wearing off. I asked the patient's and her mother if they would like to be admitted to the mother states she wants patient mated. [facility] hospitalist team Dr. Becerra made aware of the patient. 2044: Called to bedside by the hospitalist team Dr. Wolf. He was called to the bedside by the family as they thought that the patient's symptoms were getting worse. On arrival in the room the patient mother had already self administered IM epinephrine just moments prior to arrival. The patient lungs were clear, there is no stridor, there is no lip swelling, no rash, the patient had her tongue protruding from her mouth but it did not appear swollen. After self administering the Benadryl the patient and mother are again demanding to receive 50 mg of IV Benadryl. On reassessment the patient's pupils do appear more dilated, they are still reactive. She is not tachycardic. I explained to them that if we continue to give such high doses of Benadryl she could develop an anticholinergic toxicity and might need to be reintubated if she has in the past. The patient then stopped protruding her tongue and started screaming along with her mother that they will not be intubated ever again and that she did not need a ventilator. They seem fixated repeatedly asking for the Benadryl 50 mg which they state is the only way they can avoid her going on to the ventilator. Benadryl again ordered for the patient as they keep demanding it and are screaming for it. 2102: Both Dr. Becerra admitting physician and I spoke with Dr. Ramirez her loom cleaner. He states he is afraid that the patient might be starting to exhibit drug-seeking behavior with her fixation on the Benadryl being given only IV and not IM and wanting specific dosages. He states he thinks that her symptoms might be more psych related but agrees with the plan to observe the patient overnight. Administered Medications Diphenhydramine HCl (Diphenhydramine 50 Mg/Ml Vial) 25 mg IV Q4H NAVIN Stop: 04/12/24 22:59 Last Admin: 03/13/24 23:01 Dose: 25 mg Documented By: ISABELLA Famotidine (Pepcid 20mg Iv Push) 20 mg in 5 mls @ 2.5 mls/min IV Q12H NAVIN Stop: 04/12/24 21:59 Last Admin: 03/13/24 23:01 Dose: 2.5 mls/min Documented By: ISABELLA Discontinued Medications Cetirizine HCl (Cetirizine Hcl 10 Mg Tablet) 20 mg PO NOW STA Stop: 03/13/24 22:48 Last Admin: 03/14/24 00:15 Dose: 20 mg Documented By: IDD Diphenhydramine HCl (Diphenhydramine 50 Mg/Ml Vial) 50 mg IV NOW STA Stop: 03/13/24 18:03 Last Admin: 03/13/24 18:09 Dose: 50 mg Documented By: GRETCHEN Diphenhydramine HCl (Diphenhydramine 50 Mg/Ml Vial) 50 mg IV NOW STA Stop: 03/13/24 20:45 Last Admin: 03/13/24 20:54 Dose: 50 mg Documented By: Epinephrine HCl (Epinephrine Inj 1 Mg/Ml Amp) Confirm Administered Dose 1 mg .ROUTE .STK-MED ONE Stop: 03/13/24 20:30 Last Admin: 03/13/24 20:39 Dose: Not Given Documented By: GASTON Epinephrine HCl (Epinephrine Inj 1 Mg/Ml Amp) Confirm Administered Dose 2 mg .ROUTE .STK-MED ONE Stop: 03/13/24 20:31 Last Admin: 03/13/24 20:40 Dose: Not Given Documented By: GASTON Sodium Chloride (Nss) 1,000 mls @ 999 mls/hr IV .Q1H1M ONE Stop: 03/13/24 18:06 Last Infusion: 03/13/24 19:33 Dose: Infused Documented By: Admin: 03/13/24 17:14 Dose: 999 mls/hr Documented By: SHIRLEY Lorazepam (Lorazepam 1 Mg/1 Ml Syr Ed Inj Use) 1 mg IV ONE STA Stop: 03/13/24 17:07 Last Admin: 03/13/24 17:14 Dose: 1 mg Documented By: SHIRLEY Methylprednisolone (Methylprednisolone 125 Mg/2 Ml Vial) 125 mg IV NOW STA Stop: 03/13/24 17:07 Last Admin: 03/13/24 17:14 Dose: 125 mg Documented By: SHIRLEY Medical Decision Making Medical Records Attestation: I reviewed the patient's medical records. External medical records reviewed. Patient was seen in November 2023 for similar episodes. During her hospital stay in late November the patient had to be intubated due to worsening allergic reaction/angioedema. There is a note from her physician Dr. Ramirez today which states: "This patient has a known history of idiopathic urticaria/angioedema that might be complicated by bouts of anxiety that lead to subjective symptoms. She does frequently also require epinephrine, though presentations where patients develop isolated tongue swelling are extremely rare even for patients with true angioedema syndromes. As result I suspect that many of these are not true angioedema. Her symptoms often respond to epinephrine very quickly, sometimes much quicker than I would expect to be physiologically possible." [facility] Narrative 1703: The patient was evaluated in room A1. A complete history and physical exam was performed Cardiac monitoring: An order was placed for continuous cardiac monitoring. The monitor shows a rate of 90 with sinus rhythm interpreted by me On arrival the patient is speaking in full sentences. She is protruding her tongue from her mouth intermittently however there is no true swelling of her tongue, lip or uvula. No stridor. No wheezes. 1717: Received a call from Dr. Ramirez. Patient was given an injection for Xolair today. Patient developed itchiness and tongue swelling afterwards. According to Dr. Ramirez the tongue swelling was ambiguous as she has had episodes in the past was unclear if the patient truly had tongue with swelling or if she was just sticking her tongue out. 50 mg of Benadryl was given and there is no improvement so she got 0.3 mg of IM. After short period of time her symptoms returned and she received another dose of IM Benadryl. Dr. Ramirez stated that after that the mother wanted to take her to the emergency department. He stated he is not sure if the patient is truly having an allergic reaction or angioedema. He stated would be very rare for epinephrine to improve her symptoms in such a short amount of time after receiving epinephrine. Solu- Medrol and Ativan will be ordered for the patient. 1810: Vital signs stable. Patient in no respiratory distress. No stridor. No wheezing. Lip or tongue swelling. No facial swelling. Mother at bedside. Patient and mother seems fixated on receiving Benadryl again. They states that is the only thing that helps her. She states she is she is supposed to get it every 4 hours 50 mg IV. She states IM and oral do not work for her. Benadryl IV ordered as patient had requested. 193: Patient is resting comfortably with a male mud engineer at bedside. Patient is not in any respiratory distress speaking full sentences to this male compani on. There is no tongue or lip swelling. I discussed with the patient both she and I thought that she be discharged home. The patient then called her mother on the telephone and after speaking with her the mother states the patient cannot be discharged home as her symptoms will reappear in 4 hours she states once her Benadryl was wearing off. I asked the patient's and her mother if they would like to be admitted to the mother states she wants patient mated. [facility] hospitalist team Dr. Becerra made aware of the patient. 2044: Called to bedside by the hospitalist team Dr. Wolf. He was called to the bedside by the family as they thought that the patient's symptoms were getting worse. On arrival in the room the patient mother had already self administered IM epinephrine just moments prior to arrival. The patient lungs were clear, there is no stridor, there is no lip swelling, no rash, the patient had her tongue protruding from her mouth but it did not appear swollen. After self administering the Benadryl the patient and mother are again demanding to receive 50 mg of IV Benadryl. On reassessment the patient's pupils do appear more dilated, they are still reactive. She is not tachycardic. I explained to them that if we continue to give such high doses of Benadryl she could develop an anticholinergic toxicity and might need to be reintubated if she has in the past. The patient then stopped protruding her tongue and started screaming along with her mother that they will not be intubated ever again and that she did not need a ventilator. They seem fixated repeatedly asking for the Benadryl 50 mg which they state is the only way they can avoid her going on to the ventilator. Benadryl again ordered for the patient as they keep demanding it and are screaming for it. 2102: Both Dr. Becerra admitting physician and I spoke with Dr. Ramirez her loom cleaner. He states he is afraid that the patient might be starting to exhibit drug-seeking behavior with her fixation on the Benadryl being given only IV and not IM and wanting specific dosages. He states he thinks that her symptoms might be more psych related but agrees with the plan to observe the patient o vernight. Impression & Plan Mast cell activation syndrome Discharge Plan Visit Data Chief Complaint: Allergic Reaction Stated Complaint: ALLERGIC REACTION, RESPITORY DISTRESS ED Provider: Neri Lazo Discharge Problem: Mast cell activation syndrome Patient Disposition: Being Evaluated by Hospitalist Discharge Instructions Interventions: ED Discharge Assessment Last Done: 03/13/24 22:41
[2024-03-13] MEDS ORDERED: ONDANSETRON INJ 2 MG/ML 2 ML VIAL IV PRN (22:40)
[2024-03-13] MEDS: diphenhydrAMINE 50 MG/ML VIAL IV SCH (23:01)
[2024-03-13] MEDS: FAMOTIDINE 20MG IV PUSH 20 MG/5 ML SYR IV SCH (23:01)
[2024-03-14] MEDS: CETIRIZINE HCL 10 MG TABLET PO STA (00:15)
[2024-03-14] MEDS: diphenhydrAMINE 50 MG/ML VIAL IV PRN (00:43)
[2024-03-14 07:11] VITALS: RESP 20; O2SAT 99
[2024-03-14 07:33] LABS: Hematocrit (blood only) 40.3 % (37.0-47.0); Hemoglobin 13.2 g/dl (12.0-16.0); Mean Corpuscular Hemoglobin 27.7 pg (25.0-34.0); Mean Corpuscular Hgb Conc 32.8 g/dL (32.0-36.0); Mean Corpuscular Volume 84.7 fL (80.0-100.0); Mean Platelet Volume 9.7 fL (9.4-12.4); Platelet Count 282 K/uL (130-400); RDW Coefficient of Variation 12.8 % (11.5-14.5); RDW Standard Deviation 39.7 fL (36.4-46.3); Red Blood Count 4.76 M/uL (4.20-5.40); White Blood Count 12.02 K/ul (4.8-10.8)
[2024-03-14 07:57] LABS: Anion Gap 7 (3-11); BUN Creatinine Ratio 14.3 (10-20); Blood Urea Nitrogen 8 mg/dl (6-23); Calcium 8.9 mg/dl (8.6-10.3); Carbon Dioxide 23 mmol/L (21-32); Chloride 108 mmol/L (98-107); Est GFR (African American) > 150.0 ml/min; Est GFR (Non-African American) 134.2 ml/min; Glucose 119 mg/dl (70-99(Fasting)); Potassium 3.9 mmol/L (3.5-5.1); Sodium 138 mmol/L (136-145)
[2024-03-14] MEDS: methylPREDNISolone 40 MG in SYRINGE 0 ML IV SCH (08:40)
[2024-03-14] MEDS: SODIUM CHLORIDE 0.9% 1,000 ML IV SCH (08:44)
[2024-03-14] MEDS ORDERED: methylPREDNISolone 125 MG/2 ML VIAL IV SCH (09:00)
[2024-03-14] MEDS: CETIRIZINE HCL 10 MG TABLET PO SCH (09:05)
[2024-03-14] MEDS: diphenhydrAMINE 50 MG/ML VIAL IV STA (09:05)
--- NOTE | 2024-03-14 09:25 | Discharge Summary ---
Date of Service March 14, 2024 Admission HPI Per Admitting Provider Lulu Billingsley is a 18yo female with history of recurrent episodes of urticaria and angioedema presenting with allergic reaction. Patient was seen by her [employer] Person today and had an allergy shot. She then developed increased difficulty breathing. She was administered IM Benadryl and IM epinephrine in the office. She presents to the ER with concern for ongoing symptoms. She reports tongue swelling, throat itching and stridor prior to arrival. During my encounter patient was seen with her boyfriend present. She reported her symptoms somewhat improving. She was requesting admission and scheduled IV Benadryl as well as PRN IV Benadryl. Later in the evening I was called to bedside because patient was requiring epinephrine. Patient reported worsening tongue swelling and throat closure. Mother at bedside and self-administered epi-pen. Patient evaluated immediately following the event and was saturating well. No wheeze or stridor. Tongue protruding from mouth and pressed onto the roof of her mouth but did not appear to be edematous. ER Course: Ativan 1mg IV NSS x 1L Solumedrol 125mg IV Benadryl 50mg IV x 2 doses - last administered at 20:54 Admission Exam Per Admitting Provider General: patient resting comfortably, NAD, non-toxic in appearance, AA&O x 4, joking with boyfriend at bedside Skin: warm, dry, intact, no rashes or lesions HEENT: NC/AT, PERRL, EOMI, anicteric sclera, conjunctiva without injection, external ear normal to inspection and nontender, nares patent, moist mucus membranes, patient protruding tongue from mouth, tongue does not appear to be swollen, neck supple, trachea midline, no LAD, no thyromegaly, no JVD Heart: +S1/S2, regular, no m/r/g Lungs: equal air entry bilaterally, no rales/rhonchi/wheezes, no stridor Abd: +BS, soft, NT/ND, no masses/organomegaly/ascites Ext: warm, 2+ pulses in UE/LE bilaterally, no clubbing/cyanosis or edema Principal Diagnosis Allergic reaction Discharge Exam General: patient resting comfortably, NAD, non-toxic in appearance, AA&O x 4 Skin: warm, dry, intact, no rashes or lesions HEENT: NC/AT, EOMI, anicteric sclera, conjunctiva without injection, external ear normal to inspection and nontender, nares patent, moist mucus membranes, tongue does not appear to be swollen, neck supple, trachea midline, no LAD Heart: +S1/S2, regular, no m/r/g Lungs: equal air entry bilaterally, no rales/rhonchi/wheezes, no stridor Discharge Data Allergies Allergy/AdvReac Type Severity Reaction Status Date / Time docusate [From Senna-S] Allergy Severe Hives, Verified 03/14/24 01:28 stridor plecanatide [From Trulance] Allergy Severe Anaphylaxis Verified 03/14/24 01:28 polyethylene glycol Allergy Severe Anaphylaxis Verified 03/14/24 01:28 [From Golytely] senna [From Senna-S] Allergy Severe Hives, Verified 03/14/24 01:28 stridor shellfish derived Allergy Severe Unknown Verified 03/14/24 01:28 adhesive Allergy Intermediate Hives Verified 03/14/24 01:28 latex Allergy Intermediate Rash Verified 03/14/24 01:28 oxycodone Allergy Intermediate hives/rash Verified 03/14/24 01:28 Penicillins Allergy Intermediate vomiting/ra Verified 03/14/24 01:28 sh polyethylene glycol 3350 Allergy Intermediate hives/itchi Verified 03/14/24 01:28 [From Miralax] ng Sulfa (Sulfonamide Allergy Intermediate Rash Verified 03/14/24 01:28 Antibiotics) sulfamethoxazole Allergy Intermediate Rash Verified 03/14/24 01:28 [From Sulfamethoxazole-Trimethoprim] tetrahydrozoline Allergy Intermediate Rash Verified 03/14/24 01:28 trimethoprim Allergy Intermediate Rash Verified 03/14/24 01:28 [From Sulfamethoxazole-Trimethoprim] nickel Allergy Mild Rash Verified 03/14/24 01:28 clams Allergy Unknown Unknown Verified 03/14/24 01:28 crab Allergy Unknown Unknown Verified 03/14/24 01:28 hazelnut Allergy Unknown Unknown Verified 03/14/24 01:28 lobster Allergy Unknown Unknown Verified 03/14/24 01:28 scallops Allergy Unknown Unknown Verified 03/14/24 01:28 sesame seed Allergy Unknown Unknown Verified 03/14/24 01:28 shrimp Allergy Unknown Unknown Verified 03/14/24 01:28 aspirin AdvReac Severe gi bleed Verified 03/14/24 01:28 gluten AdvReac Severe celiac Verified 03/14/24 01:28 disease ibuprofen AdvReac Severe gi bleed Verified 03/14/24 01:28 NSAIDS (Non-Steroidal AdvReac Severe gi bleed Verified 03/14/24 01:28 Anti-Inflamma metoclopramide [From Reglan] AdvReac Intermediate muscle Verified 03/14/24 01:28 spasm avocado AdvReac Unknown Swelling Verified 03/14/24 01:28 of Lip/Tongue/Throat clarithromycin [From Biaxin] AdvReac Unknown unsure Verified 03/14/24 01:28 ferric carboxymaltose AdvReac Unknown unsure Verified 03/14/24 01:28 Consultations 03/13/24 19:35 ED Decision to Admit Stat Hospital Course (1) Tongue swellin yo female with history of idiopathic urticaria, 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, pt will be discharged with additional Benadryl 50 mg IV dose and instructed to take 50 mg q4h until full resolution of symptoms -Treated with Pepcid 20 mg IV BID and Solumedrol 40 mg IV x1, deferring further steroids -Symptoms largely resolved by time of discharge -[employer] Person note reviewed- symptoms less likely to be true allergic reaction/anaphylaxis/true angioedema but more likely nonspecific symptoms triggered by anxiety complicating her known idiopathic angioedema history -Follow up with sand mill grinder advised Total Time Total Time Spent Total Time Spent (In Minutes): <30 Discharge Plan Discharge Items Patient Disposition: Home - Self-Care Reason For Visit: ALLERGIC REACTION Discharge Diagnosis: Allergic reaction Activity: Resume your previous activity Non-emergency contact: Primary Care Provider and Specialist Call non-emergency contact if: your symptoms worsen Follow-up/Referrals: Les Ramirez MD [Physician] - Araseli Pacheco MD [Primary Care Provider] - Diet: Regular Addtl Attending Provider Instructions: You were admitted to the hospital for tongue swelling which did not fully resolve with Benadryl and epinephrine in the office. You were treated with more Benadryl and steroids here. The tongue swelling resolved and you will not require any further steroid therapy, though taking Benadryl regularly is ok for symptom control as directed by Dr. Ramirez's office. A discharge summary will be sent to your primary care physician to ensure continuity of care. Please bring this discharge summary with you to your next office appointment so that your provider can review it at that time. Follow-up appointments: - Follow up with Dr. Ramirez within 2 weeks. Medications: Your medication list has been reviewed and reconciled upon discharge to ensure accuracy and continuity of care. An updated list of all your medications is included with your hospital discharge paperwork. Please review this list closely, and make note of any changes. Take your medications as instructed; do not skip a dose of your medicines. Make sure all of your doctors know every medicine you are taking (including [id number] medicines, vitamins, and supplements). Call your primary care provider before taking any new medicines (including ifiy-gsu-canvifr medicines, vitamins, and supplements), because some of these may interact with your current medications, or may make your symptoms worse. Tell your primary care provider if you cannot afford your medications. CALL 911 OR GO TO THE EMERGENCY DEPARTMENT if you experience any of the following: - Sudden, severe abdominal pain or nausea/vomiting - Severe chest pain, or chest pain that radiates (moves) to your jaw or arm - Sudden, severe shortness of breath or difficulty breathing Thank you for allowing us to participate in your care Pending Studies at Discharge: No Stand-Alone Forms: [facility] Confer, Work/School Release Medications and DC Order Prescriptions: Continued Xolair 150 mg/mL syringe 300 mg subcut .COMPLEX Qty: 4 11RF Rx Instructions: INJECT 300 mg subcutaneously EVERY 2 WEEKS APPROVED GOOD 10/16/23 - 10/16/24 epinephrine [EpiPen] 0.3 mg/0.3 mL auto-injector 0.3 mg IM Q20M PRN (Reason: anaphylaxis) Qty: 2 3RF ondansetron HCl 4 mg tablet 4 mg PO Q8H PRN (Reason: nausea and vomiting) 10 Days Qty: 30 1RF levalbuterol tartrate 45 mcg/actuation HFA aerosol inhaler 1 puff inhalation Q6H PRN (Reason: Wheezing) Qty: 1 0RF fluticasone propionate [Flonase Allergy Relief] 50 mcg/actuation sp ray,suspension 2 spray intranasal DAILY Qty: 1 0RF Rx Instructions: administer into each nostril famotidine 40 mg tablet 40 mg PO BID Qty: 180 3RF fluoxetine 20 mg capsule 20 mg PO DAILY lorazepam 0.5 mg tablet 0.5 mg PO BID PRN (Reason: Anxiety) Rx Instructions: Patient says her dose is 2 mg tid prn, but I can find no record of this. This dose above is from dr bain. cetirizine 10 mg tablet 20 mg PO BID Qty: 60 11RF zileuton 600 mg tablet, ER multiphase 12 hr 2 tab PO BID Qty: 120 2RF Rx Instructions: APPROVED GOOD 02/29/24-02/28/25 Nurtec ODT 75 mg tablet,disintegrating 75 mg PO Q OTHER DAY PRN (Reason: Migraine Headache) diphenhydramine HCl 25 mg tablet,disintegrating 25 - 50 mg PO Q6H PRN (Reason: ITCHING/ALLERGY SYMPTOMS) Discharge Orders: Discharge Order (Routine); Ordered 03/14/24 Ordered By: Arianna Alberto Admission Data Admit Date/Time: 03/13/24 20:34 Attending Provider: Gómez Hicks Admit Provider: Lindy Becerra Primary Care Provider: Araseli Pacheco Other Providers: Lindy Becerra Other Interventions: Discharge Summary Assessment (RN) Last Done: 03/14/24 10:24 Supervising Physician Co-Signing Physician Notes I personally examined the patient and verified all galloway points of history and exam, discussed case, and agree with decision making with Dr Alberto feels better feels up to going home. Vitals noted, in general she is awake and alert pleasant no distress. Breathing unlabored tongue without edema, no accessory muscle use no conversational dyspnea, she is on room air. No rashes. Urticariasafe/stable for home. Outpatient follow-up. Otherwise as above. Resident Activity Tracking Resident Involvement: Resident Care Provided Care Provided: Adult Hospital Medicine
[2024-03-14 10:26] VITALS: BP 127/79; PULSE 76
--- NOTE | 2024-03-14 16:48 | Billing Data ---
Date of Service March 14, 2024 Coding Level of Care Code 22178 IN/OBS DISCH 30 MIN/LESS
== END 2024-03-14 10:26 | disposition home or self-care (01) | DRG 816 ==
LOC: ED 16:49 → SUATTDRO 20:34 → EDINP 20:34
DX: Z88.8 Allergy status to other drugs, medicaments and biological substances; Z88.2 Allergy status to sulfonamides; Z88.5 Allergy status to narcotic agent; D89.40 Mast cell activation, unspecified; Z88.6 Allergy status to analgesic agent; Z88.0 Allergy status to penicillin; L29.9 Pruritus, unspecified; Z91.048 Other nonmedicinal substance allergy status